=== PATIENT | female | born 1975 | race Caucasian/White ===

== ENCOUNTER 2016-08-01 09:35 | Inpatient (IN) ==
[~2016-08-01 09:35] MED LIST: *HR* Etomidate 20 MG/10 ML AMPUL IVP ONE; *HR* Midazolam HCl 5 MG/5 ML VIAL IVP ONE
[2016-08-01] MEDS ORDERED: 0.9 % Sodium Chloride 1,000 ML ONE (10:44)
[2016-08-01] MEDS: Norepinephrine 4 MG in D5% in Water 250 ML IVC SCH ×3 (12:13→22:11)
--- NOTE | 2016-08-01 13:21 | Pulmonology History & Physical ---
Date of Encounter: 08/01/16 Time of Encounter: 13:00 History of Present Illness Chief complaint: ARF, Sepsis HPI: Ms. Butler is a 40 year old female with history significant for diabetes, hypertension, renal disease, obesity, and sleep apnea presents from [place] on a nonrebreather mask. She originally presented with nausea, vomiting and generalized fatigue. At [place], pt was found to have WBC: 39.9 with 30% bands, K:6.5, and creatinine:5.94. She was given IV fluids and a figueroa was placed prior to arrival. Past Med Surg Social Fam HX - Past Medical History Medical history: arthritis, diabetes, hypertension, renal disease, other Psychiatric history: anxiety, depression - Past Surgical History Surgical History: , herniorrhaphy, other - Social History Smoking Status: Current every day smoker Alcohol use: none Drug use: none Medications and Allergies Aclidinium [place] [Tudorza Pressair] 1 puff IH DAILY 08/01/16 [History] Albuterol Neb [Proventil Neb] 2.5 mg IH ONCE 08/01/16 [History] Albuterol Sulfate [Ventolin Hfa] 2 puff IH Q4H PRN 08/01/16 [History] Alprazolam [Alprazolam] 2 mg PO BID PRN 08/01/16 [History] Aspirin 81 mg PO DAILY 08/01/16 [History] Ergocalciferol (VITAMIN D2) [Vitamin D2] 50,000 unit PO QWEEK 08/01/16 [History] Insulin Degludec [Tresiba Flextouch U-100] 100 unit SQ DAILY 08/01/16 [History] Liraglutide [Victoza 3-Jimy] 1.2 mg SQ DAILY 08/01/16 [History] Loratadine [Claritin] 10 mg PO DAILY 08/01/16 [History] Metoprolol [Lopressor] 25 mg PO DAILY 08/01/16 [History] Morphine Sulfate [Kathleen] 15 mg PO BID 08/01/16 [History] Omeprazole [PriLOSEC] 20 mg PO DAILY 08/01/16 [History] Ondansetron HCl 4 mg PO Q6H PRN 08/01/16 [History] Oxycodone HCl 5 mg PO BID PRN 08/01/16 [History] Potassium Chloride [K-Tab ER] 20 meq PO DAILY 08/01/16 [History] Pravastatin Sodium [Pravachol] 40 mg PO DAILY 08/01/16 [History] Spironolactone [Aldactone] 100 mg PO DAILY 08/01/16 [History] Torsemide [Torsemide] 100 mg PO DAILY 08/01/16 [History] Allergies No Known Allergies Allergy (Verified 08/01/16 07:54) All Systems: A 10-system review of systems was performed and is negative for pertinent findings except as documented above in the HPI. Physical Examination Vital Signs: Vital Signs, Last 4 Hours Temp Pulse Resp BP Pulse Ox 08/01/16 12:00 83 20 82/34 82 L 08/01/16 11:25 85 08/01/16 11:19 20 101/69 82 L 08/01/16 10:56 97.9 F 87 16 101/69 65 L
[2016-08-01] MEDS: Cefepime HCl 2,000 MG in D5% in Water (Mini-Bag+) 100 ML IVPB SCH (14:00)
[2016-08-01] MEDS ORDERED: Vancomycin 2,000 MG in D5% in Water 250 ML IVPB SCH (14:00)
[2016-08-01] MEDS ORDERED: Vancomycin 2,000 MG in D5% in Water 500 ML IVPB ONE (14:00)
[2016-08-01] MEDS ORDERED: *HR* Heparin 5,000 UNIT/ML VIAL ONE ×2 (14:11→22:43)
[2016-08-01] MEDS ORDERED: 0.9 % Sodium Chloride 2,000 ML ONE (14:30)
[2016-08-01 14:35] LABS: ABG Base Excess -12.2 mEq/L (-2.0 to 3.0); ABG HCO3 19.2 mEQ/L (21-27); ABG Oxygen Saturation 91 % (95-98); ABG PCO2 71 mmHg (35-45); ABG PH 7.04 pH Units (7.32-7.45); ABG PO2 86 mmHg (85-104); ABG TCO2 21.4 mEq/L (20-26); Blood Gas FiO2 100 %
[2016-08-01] MEDS ORDERED: Acetaminophen 325 MG TABLET PO PRN (14:39)
[2016-08-01] MEDS ORDERED: Naloxone 0.4 MG/ML INJ IVP PRN (14:39)
[2016-08-01] MEDS ORDERED: *HR* Dextrose 50 % in Water (Syg) 50 ML SYRINGE IVP PRN (14:47)
[2016-08-01] MEDS ORDERED: D5% in Water 1,000 ML IV PRN (14:47)
[2016-08-01] MEDS ORDERED: Dextrose Gel 15 GM PO PRN ×2 (14:47)
[2016-08-01] MEDS ORDERED: Insulin LISPRO 300 UNITS/3 ML VIAL SQ SCH (15:00)
--- NOTE | 2016-08-01 15:06 | Pulmonology History & Physical ---
Date of Encounter: 08/01/16 Time of Encounter: 14:52 Assessment and Plan (1) Acute respiratory failure with hypoxia Current visit: Yes Status: Acute Acute respiratory failure with hypoxia and this particular individual is related to COPD, Obesity hypoventilation and cor pulmonale and more than likely superimposed septic shock. The patient requires full ventilatory support I FiO2 and PEEP levels given the magnitude of hypoxia. Follow-up arterial blood gases pending in reference to adjustment of ventilatory support. The patient will receive dilator therapy may require steroids maximize pulmonary function. Code(s): J96.01 - Acute respiratory failure with hypoxia SNOMED Code(s): 34081283, 650641911 (2) Septic shock Current visit: Yes Status: Acute Patient suffers from presumptive septic shock with multisystem organ failure. The precise focus site for sepsis in this particular individual is uncertain at this time. The post interventional chest radiograph does not reveal a significant focal infiltrate however given the limitations of the quality of the film, and the interpretation of films by myself, the patient may have a left lower lobe retrocardiac density. Nonetheless, cultures obtained and the patient will be placed on broad-spectrum antimicrobial agents pending results of culture and further evaluation. Code(s): A41.9 - Sepsis, unspecified organism; R65.21 - Severe sepsis with septic shock SNOMED Code(s): 35134850 (3) Acute renal failure Current visit: No Status: Acute Acute kidney injury in this individual is due to hemodynamically mediated ATN secondary to septic shock. Is uncertain if the patient has chronic kidney disease but certainly has risk factors for the same (diabetes, hypertension). Given the magnitude of renal failure and accompanying metabolic dysfunction ( metabolic acidosis, hyperkalemia) and anuria to date, Dr. Bernal's been consulted to initiate continuous renal replacement therapy. Qualifiers: Acute renal failure type: with acute tubular necrosis Qualified Code(s): N17.0 - Acute kidney failure with tubular necrosis (4) Transaminitis Current visit: Yes Status: Acute Initially elevated amylase levels from review of blood work as well as hyperbilirubinemia are likely due to shock liver. The patient may also have pre -existing liver dysfunction and in particular fatty liver. Liver function studies will be monitored supportive care provided. Code(s): R74.0 - Nonspecific elevation of levels of transaminase and lactic acid dehydrogenase [LDH] SNOMED Code(s): 063180986 History of Present Illness Chief complaint: Acute respiratory failure HPI: Ms. Butler is a 40 year old female transferred from outlying facility where she presented with complaints of fatigue and general sense of poor well-being, breathlessness. According to the [facility] ER physician with whom I spoke earlier today, the patient appeared quite ill suffered from multiple metabolic derangements including presumptive acute kidney injury, metabolic acidosis, transaminitis and profound hypoxia. Patient was also substantially hyperglycemic. After initial emergency room evaluation, the patient developed progressive hypotension and hypoxia. She received at least 2 L of intravenous saline fluid bolus, broad-spectrum antimicrobial agent for presumptive sepsis and was placed on a nonrebreather face mask. The patient was subsequently transferred to [place] critical care unit. At the time of her transfer, she was very ill appearing with peripheral cyanosis, cool extremities confused, mildly delirious and profoundly hypoxic (80% saturation via pulse oximetry, FiO2 100% via nonrebreather facemask). Given her overall clinical appearance, she was subsequently intubated using a glide scope, procedure performed without difficulty by Dr. Diaz under my direct supervision (7.5 orql ETT), placed on high level ventilatory support, received additional fluids in conjunction with initiation of pressor agents (Levophed and Vasopressin), initiated on Cefepime and Vancomycin following blood cultures, urine and sputum culture and underwent central line placement as well as arterial catheter placement for hemodynamic monitoring purposes (agAIN performed by Dr Diaz under my direct supervison). Given the magnitude of the patient's renal failure, metabolic acidosis and hyperkalemia and in light of anuria, Dr. Bernal was consulted for provision of continuous renal replacement therapy and an additional left IJ central venous hemodialysis catheter was placed to Dr. Diaz under my supervision without difficulty. Apparently, per the family, the patient has been ill quite some time and is refused seeking attention of medical care. She is an active smoker offers from COPD as well as morbid obesity hypoventilation syndrome sleep apnea, diabetes and probably chronic kidney disease. Aside from tobacco abuse no other social history is unknown. Poorly, the patient's past medical histories include COPD, hypertension, diabetes mellitus, sleep apnea, arthritis and anxiety and depression Past Med Surg Social Fam HX - Past Medical History Medical history: arthritis, diabetes, hypertension, renal disease, other Psychiatric history: anxiety, depression - Past Surgical History Surgical History: , herniorrhaphy - Social History Smoking Status: Current every day smoker Alcohol use: none Drug use: none Medications and Allergies Aclidinium [place] [Tudorza Pressair] 1 puff IH DAILY 08/01/16 [History] Albuterol Neb [Proventil Neb] 2.5 mg IH ONCE 08/01/16 [History] Albuterol Sulfate [Ventolin Hfa] 2 puff IH Q4H PRN 08/01/16 [History] Alprazolam [Alprazolam] 2 mg PO BID PRN 08/01/16 [History] Aspirin 81 mg PO DAILY 08/01/16 [History] Ergocalciferol (VITAMIN D2) [Vitamin D2] 50,000 unit PO QWEEK 08/01/16 [History] Insulin Degludec [Tresiba Flextouch U-100] 100 unit SQ DAILY 08/01/16 [History] Liraglutide [Victoza 3-Jimy] 1.2 mg SQ DAILY 08/01/16 [History] Loratadine [Claritin] 10 mg PO DAILY 08/01/16 [History] Metoprolol [Lopressor] 25 mg PO DAILY 08/01/16 [History] Morphine Sulfate [Kathleen] 15 mg PO BID 08/01/16 [History] Omeprazole [PriLOSEC] 20 mg PO DAILY 08/01/16 [History] Ondansetron HCl 4 mg PO Q6H PRN 08/01/16 [History] Oxycodone HCl 5 mg PO BID PRN 08/01/16 [History] Potassium Chloride [K-Tab ER] 20 meq PO DAILY 08/01/16 [History] Pravastatin Sodium [Pravachol] 40 mg PO DAILY 08/01/16 [History] Spironolactone [Aldactone] 100 mg PO DAILY 08/01/16 [History] Torsemide [Torsemide] 100 mg PO DAILY 08/01/16 [History] Allergies No Known Allergies Allergy (Verified 08/01/16 07:54) ROS unobtainable: due to endotracheal tube, due to mental status All Systems: A 10-system review of systems was performed and is negative for pertinent findings except as documented above in the HPI. Physical Examination Vital Signs: Vital Signs, Last 4 Hours Temp Pulse Resp BP Pulse Ox 08/01/16 14:00 70 20 120/69 73 L 08/01/16 13:00 73 20 87/46 73 L 08/01/16 12:00 83 20 82/34 82 L 08/01/16 11:25 85 08/01/16 11:19 20 101/69 82 L 08/01/16 10:56 97.9 F 87 16 101/69 65 L General appearance: other (Super morbidly obese female obviously in moderate degree of distress cyanotic confused.) ENT: other (Unable to fully evaluate oral pharynx due to nonrebreather facemask) Mallampati (class): 2 Auscultation: bilateral: diminished breath sounds, wheezes Cardiovascular: regular rate and rhythm, other (Gallop) Gastrointestinal: normoactive bowel sounds, non-tender, other (Tremendous pannus ) Extremities: cool (Cool cyanotic extremities noted at all stations, severely diminished pulsations upper lower extremities. Livedo reticularis noted of the legs.), cyanosis unable to assess due to mental status, other (No obvious focal motor deficit nor cranial nerve deficits limited exam) Results - Laboratory Findings ABG ABG pH 7.04 pH Units (7.32-7.45) L* 08/01/16 14:01 ABG pCO2 71 mmHg (35-45) H* 08/01/16 14:01 ABG pO2 86 mmHg (85-104) 08/01/16 14:01 ABG O2 Saturation 91 % (95-98) L 08/01/16 14:01 Abnormal lab findings: Abnormal lab results ABG pH 7.04 pH Units (7.32-7.45) L* 08/01/16 14:01 ABG pCO2 71 mmHg (35-45) H* 08/01/16 14:01 ABG HCO3 19.2 mEQ/L (21-27) L 08/01/16 14:01 ABG O2 Saturation 91 % (95-98) L 08/01/16 14:01 ABG Base Excess -12.2 mEq/L (-2.0 to 3.0) L 08/01/16 14:01
--- NOTE | 2016-08-01 15:27 | Event Note ---
Date of Encounter: 08/01/16 Time of Encounter: 15:25 I reviewed the medical situation of this gravely ill patient with the family. I told them in no uncertain terms that the odds are more likely than not that she will not survive spite of aggressive appropriate medical measures to support multisystem organ failure presumably secondary to septic shock. Family members acknowledge this situation but wished to continue aggressive care at least through the weekend perhaps evaluating the situation next week. Therefore , the patient will remain full code at this time. Enoch
[2016-08-01] MEDS: Chlorhexidine Rinse 15 ML MOUTHWASH MM SCH ×2 (15:50→20:14)
[2016-08-01] MEDS: *HR* Heparin 5,000 UNIT/ML VIAL SQ SCH ×2 (15:51→23:51)
[2016-08-01] MEDS: Pantoprazole 40 MG VIAL IVPB SCH (15:51)
[2016-08-01] MEDS ORDERED: *HR* Heparin 5,000 UNIT/ML VIAL IV PRN ×2 (15:54→16:06)
[2016-08-01 15:56] LABS: Monocytes % 1.4 %
[2016-08-01 15:57] LABS: Basophils % 0.2 %; Hematocrit 30.6 % (35.3-44.9); Hemoglobin 9.1 g/dL (11.5-15.4); Lymphocytes # 0.5 K/mcL (0.6-4.6); Mean Corpuscular HGB Conc 29.7 g/dL (31.6-35.5); Mean Corpuscular Hemoglobin 28.1 pg (28.0-33.3); Mean Corpuscular Volume 94.4 fL (83.0-100.0); Mean Platelet Volume 10.9 fL (9.4-12.4); Monocytes # 0.4 K/mcL (0.0-1.3); Neutrophils # 24.9 K/mcL (1.6-8.9); Platelet Count 181 K/mcL (140-400); Red Blood Count 3.24 M/mcL (3.82-4.97); Red Cell Distribution Width 17.8 % (11.5-14.5); Segmented Neutrophils % 94.4 %
[2016-08-01 16:06] LABS: Basophils # 0.1 K/mcL (0.0-0.2)
[2016-08-01] MEDS ORDERED: *HR* Alteplase (Cathflo) 2 MG VIAL IVP PRN (16:06)
[2016-08-01] MEDS ORDERED: 0.9 % Sodium Chloride 1,000 ML PRIME ONE ×2 (16:06)
[2016-08-01] MEDS ORDERED: 0.9 % Sodium Chloride 1,000 ML PRIME SCH (16:06)
[2016-08-01 16:09] LABS: Calcium 6.8 mg/dL (8.6-10.8); Magnesium 1.9 mg/dL (1.6-2.6); Phosphorous 11.4 mg/dL (2.3-4.7)
[2016-08-01 16:13] LABS: Potassium 7.6 mEq/L (3.5-4.5)
[2016-08-01 16:14] LABS: Ionized Calcium 0.76 mmol/L (1.15-1.35)
[2016-08-01] MEDS ORDERED: Calcium Gluconate 2,000 MG in D5% in Water 100 ML IVPB ONE (16:26)
[2016-08-01 16:53] LABS: Platelet Estimate Normal (Normal)
[2016-08-01] MEDS ORDERED: 0.9 % Sodium Chloride 250 ML IV PRN (17:18)
[2016-08-01] MEDS ORDERED: 0.9 % Sodium Chloride 500 ML ONE (17:48)
[2016-08-01] MEDS ORDERED: Vancomycin 1,000 MG in D5% in Water 250 ML IVPB ONE (18:00)
[2016-08-01 19:24] LABS: ABG Base Excess -9.2 mEq/L (-2.0 to 3.0); ABG HCO3 21.5 mEQ/L (21-27); ABG Oxygen Saturation 79 % (95-98); ABG PCO2 71 mmHg (35-45); ABG PH 7.09 pH Units (7.32-7.45); ABG PO2 60 mmHg (85-104); ABG TCO2 23.7 mEq/L (20-26); Blood Gas FiO2 70 %
[2016-08-01 19:31] LABS: Hepatitis B Surface Antigen Nonreactive (Nonreactive)
[2016-08-01] MEDS: Vasopressin 40 UNIT in D5% in Water 100 ML IVC SCH (19:38)
[2016-08-01] MEDS: Lacri-Lube 3.5 GM TUBE BOTH EYES SCH (20:14)
[2016-08-01] MEDS: Insulin LISPRO 300 UNITS/3 ML VIAL SQ SCH ×2 (20:21→23:52)
[2016-08-02] MEDS: Cefepime HCl 2,000 MG in D5% in Water (Mini-Bag+) 100 ML IVPB SCH ×2 (02:18→17:26)
[2016-08-02 02:53] LABS: Basophils # 0.1 K/mcL (0.0-0.2); Basophils % 0.2 %; Eosinophils % 0.1 %; Hematocrit 48.4 % (35.3-44.9); Hemoglobin 14.9 g/dL (11.5-15.4); Immature Granulocytes % 1.1 % (0-4); Lymphocytes # 1.5 K/mcL (0.6-4.6); Mean Corpuscular HGB Conc 30.8 g/dL (31.6-35.5); Mean Corpuscular Hemoglobin 27.4 pg (28.0-33.3); Mean Platelet Volume 10.1 fL (9.4-12.4); Monocytes # 0.6 K/mcL (0.0-1.3); Monocytes % 1.6 %; Neutrophils # 35.3 K/mcL (1.6-8.9); Nucleated Red Blood Cells 3.2 /100 WBC (0); Platelet Count 240 K/mcL (140-400); Red Blood Count 5.44 M/mcL (3.82-4.97); Red Cell Distribution Width 19.1 % (11.5-14.5)
[2016-08-02 03:00] LABS: Calcium 6.7 mg/dL (8.6-10.8); Potassium 6.3 mEq/L (3.5-4.5)
[2016-08-02 03:15] LABS: Anisocytosis 1+ (Not Present); Platelet Estimate Normal (Normal)
[2016-08-02] MEDS: Insulin LISPRO 300 UNITS/3 ML VIAL SQ SCH ×7 (03:22→23:21)
[2016-08-02] MEDS ORDERED: Calcium Gluconate 1,000 MG in D5% in Water 100 ML IVPB ONE (03:35)
[2016-08-02] MEDS ORDERED: Insulin Regular, Human 100 UNIT/ML IV ONE (04:22)
[2016-08-02] MEDS ORDERED: *HR* Dextrose 50 % in Water (Syg) 50 ML SYRINGE IVP ONE (04:22)
[2016-08-02 04:36] LABS: ABG Base Excess -3.5 mEq/L (-2.0 to 3.0); ABG HCO3 25.3 mEQ/L (21-27); ABG Oxygen Saturation 95 % (95-98); ABG PCO2 59 mmHg (35-45); ABG PH 7.24 pH Units (7.32-7.45); ABG PO2 89 mmHg (85-104); ABG TCO2 27.1 mEq/L (20-26)
[2016-08-02 04:37] LABS: Blood Gas FiO2 75 %
[2016-08-02] MEDS: *HR* Heparin 5,000 UNIT/ML VIAL SQ SCH (06:02)
[2016-08-02] MEDS ORDERED: *HR* HYDROmorphone (PF) 1 MG/ML SYRINGE IVP ONE (06:10)
[2016-08-02] MEDS: FentaNYL (PF) 1,000 MCG in 0.9 % Sodium Chloride 80 ML IVC SCH (06:44)
--- NOTE | 2016-08-02 07:16 | Pulmonology Progress Note ---
<Denisse Leavitt - Last Filed: 08/02/16 07:07> Date of Encounter: 08/02/16 Time of Encounter: 07:07 Subjective Principal diagnosis: Acute respiratory failure with hypoxia and septic shock Interval history: Patient had a sedation vacation at 02:39 for which she was awake and following commands however she became resistant to the vent bucking it and was re sedated. Objective PUL Vital signs: Last Vital Signs Temp 99.4 F 08/02/16 04:00 Pulse 96 08/02/16 06:00 Resp 26 08/02/16 06:00 BP 110/68 08/02/16 06:00 Pulse Ox 94 L 08/02/16 06:00 General appearance: other (Morbidly obese) Eyes: nonicteric ENT: oropharynx moist Neck: supple, no lymphadenopathy, other (Increased neck circumference) Effort: normal Auscultation: bilateral: diminished breath sounds, wheezes Cardiovascular: regular rate and rhythm Gastrointestinal: normoactive bowel sounds, non-tender, other (Extremely large pannus) Integumentary: other (Cool cyanotic extremities, diminished pulses upper and lower bilaterally. Mottled reticulated vascularity bilateral lower extremities. ) Extremities: cyanosis pupils equal and round Ventilator Settings Ventilator Settings: Ventilator Settings, Last 8 Hours Ventilator Mode VC+ Ventilator Mode VC+ Ventilator Mode VC+ Ventilator Mode VC+ Ventilator Mode VC+ Ventilator Mode VC+ Ventilator Mode VC+ Ventilator Mode VC+ Ventilator Mode VC+ Ventilator Mode VC+ Ventilator Mode VC+ Ventilator Mode VC+ Ventilator Tidal Volume 350 Setting Ventilator Tidal Volume 350 Setting Ventilator Tidal Volume 350 Setting Ventilator Tidal Volume 350 Setting Ventilator Tidal Volume 350 Setting Ventilator Tidal Volume 350 Setting Ventilator Tidal Volume 350 Setting Ventilator Tidal Volume 350 Setting Ventilator Tidal Volume 350 Setting Ventilator Tidal Volume 350 Setting Ventilator Tidal Volume 350 Setting Ventilator Tidal Volume 350 Setting Ventilator Respiratory Rate 26 Setting Ventilator Respiratory Rate 26 Setting Ventilator Respiratory Rate 26 Setting Ventilator Respiratory Rate 26 Setting Ventilator Respiratory Rate 26 Setting Ventilator Respiratory Rate 26 Setting Ventilator Respiratory Rate 26 Setting Ventilator Respiratory Rate 26 Setting Ventilator Respiratory Rate 26 Setting Ventilator Respiratory Rate 26 Setting Ventilator Respiratory Rate 26 Setting Ventilator Respiratory Rate 26 Setting Actual Respiratory Rate 26 Actual Respiratory Rate 26 Actual Respiratory Rate 26 Actual Respiratory Rate 26 Actual Respiratory Rate 26 Actual Respiratory Rate 26 Actual Respiratory Rate 26 Actual Respiratory Rate 26 Actual Respiratory Rate 26 Actual Respiratory Rate 26 Actual Respiratory Rate 26 Positive End Expiratory 14 Pressure Positive End Expiratory 14 Pressure Positive End Expiratory 14 Pressure Positive End Expiratory 14 Pressure Positive End Expiratory 14 Pressure Positive End Expiratory 14 Pressure Positive End Expiratory 14 Pressure Positive End Expiratory 14 Pressure Positive End Expiratory 14 Pressure Positive End Expiratory 14 Pressure Positive End Expiratory 14 Pressure Positive End Expiratory 14 Pressure Peak Inspiratory Airway 29 Pressure Peak Inspiratory Airway 29 Pressure Peak Inspiratory Airway 30 Pressure Peak Inspiratory Airway 29 Pressure Peak Inspiratory Airway 31 Pressure Peak Inspiratory Airway 30 Pressure Peak Inspiratory Airway 30 Pressure Peak Inspiratory Airway 30 Pressure Peak Inspiratory Airway 30 Pressure Peak Inspiratory Airway 30 Pressure Peak Inspiratory Airway 31 Pressure Results - Laboratory Findings CBC and BMP: 08/02/16 02:30 08/02/16 02:30 ABG ABG pH 7.24 pH Units (7.32-7.45) L 08/02/16 04:25 ABG pCO2 59 mmHg (35-45) H 08/02/16 04:25 ABG pO2 89 mmHg (85-104) 08/02/16 04:25 ABG O2 Saturation 95 % (95-98) 08/02/16 04:25 Abnormal lab findings: Abnormal lab results WBC 37.9 K/mcL (4.3-11.1) H* 08/02/16 02:30 RBC 5.44 M/mcL (3.82-4.97) H 08/02/16 02:30 Hct 48.4 % (35.3-44.9) H 08/02/16 02:30 MCH 27.4 pg (28.0-33.3) L 08/02/16 02:30 MCHC 30.8 g/dL (31.6-35.5) L 08/02/16 02:30 RDW 19.1 % (11.5-14.5) H 08/02/16 02:30 Neutrophils # 35.3 K/mcL (1.6-8.9) H 08/02/16 02:30 Nucleated RBCs/100 WBC 3.2 /100 WBC (0) H 08/02/16 02:30 Anisocytosis 1+ (Not Present) A 08/02/16 02:30 ABG pH 7.24 pH Units (7.32-7.45) L 08/02/16 04:25 ABG pCO2 59 mmHg (35-45) H 08/02/16 04:25 ABG Total CO2 27.1 mEq/L (20-26) H 08/02/16 04:25 ABG Base Excess -3.5 mEq/L (-2.0 to 3.0) L 08/02/16 04:25 Sodium 128 mEq/L (136-145) L 08/02/16 02:30 Potassium 6.3 mEq/L (3.5-4.5) H 08/02/16 02:30 Chloride 91 mEq/L (98-109) L 08/02/16 02:30 Carbon Dioxide 18 mEq/L (19-29) L 08/02/16 02:30 BUN 76 mg/dL (7-20) H 08/02/16 02:30 Creatinine 5.27 mg/dL (0.57-1.11) H 08/02/16 02:30 Est GFR ( Amer) 11 (> 60) L 08/02/16 02:30 Est GFR (Non-Af Amer) 9 (> 60) L 08/02/16 02:30 Glucose 167 mg/dL (70-99) H 08/02/16 02:30 POC Glucose 204 (58-89) H 08/01/16 23:06 Calcium 6.7 mg/dL (8.6-10.8) L 08/02/16 02:30 Ionized Calcium 0.76 mmol/L (1.15-1.35) L 08/01/16 15:46 Phosphorus 11.4 mg/dL (2.3-4.7) H 08/01/16 15:46 Vancomycin Trough 33.1 mcg/mL (10-20) H* 08/02/16 02:30 - Microbiology Findings Microbiology Findings: Microbiology, Last 48 Hours 08/01/16 13:53 Sputum Culture - Preliminary Sputum - Clinical Findings Intake & Output: Intake & Output 08/01/16 08/01/16 08/02/16 15:59 23:59 07:59 Intake Total 354 / 354 2654 / 2654 387 / 387 Output Total 815 / 815 95 / 95 Balance 354 / 354 1839 / 1839 292 / 292 Weight 159.2 kg 160 kg Consult Discharge Plan - Plan Referrals: Brittany Schofield MD [Primary Care Provider] - <Sheng Kendall - Last Filed: 08/02/16 10:06> Date of Encounter: 08/02/16 Assessment and Plan (1) Acute respiratory failure with hypoxia Current Visit: Yes Status: Acute Code(s): J96.01 - Acute respiratory failure with hypoxia SNOMED Code(s): 69277118, 658673066 (2) Septic shock Current Visit: Yes Status: Acute Code(s): A41.9 - Sepsis, unspecified organism; R65.21 - Severe sepsis with septic shock SNOMED Code(s): 42617082 (3) Acute renal failure Current Visit: No Status: Acute Qualifiers: Acute renal failure type: with acute tubular necrosis Qualified Code(s): N17.0 - Acute kidney failure with tubular necrosis (4) Transaminitis Current Visit: Yes Status: Acute Code(s): R74.0 - Nonspecific elevation of levels of transaminase and lactic acid dehydrogenase [LDH] SNOMED Code(s): 733269091 Objective PUL Vital signs: Last Vital Signs Temp 99.0 F 08/02/16 08:11 Pulse 96 08/02/16 09:07 Resp 26 08/02/16 09:07 BP 118/64 08/02/16 09:07 Pulse Ox 89 L 08/02/16 09:07 Ventilator Settings Ventilator Settings: Ventilator Settings, Last 8 Hours Ventilator Mode VC+ Ventilator Mode VC+ Ventilator Mode VC+ Ventilator Mode VC+ Ventilator Mode VC+ Ventilator Mode VC+ Ventilator Mode VC+ Ventilator Mode VC+ Ventilator Mode VC+ Ventilator Tidal Volume 350 Setting Ventilator Tidal Volume 350 Setting Ventilator Tidal Volume 350 Setting Ventilator Tidal Volume 350 Setting Ventilator Tidal Volume 350 Setting Ventilator Tidal Volume 350 Setting Ventilator Tidal Volume 350 Setting Ventilator Tidal Volume 350 Setting Ventilator Tidal Volume 350 Setting Ventilator Respiratory Rate 26 Setting Ventilator Respiratory Rate 26 Setting Ventilator Respiratory Rate 26 Setting Ventilator Respiratory Rate 26 Setting Ventilator Respiratory Rate 26 Setting Ventilator Respiratory Rate 26 Setting Ventilator Respiratory Rate 26 Setting Ventilator Respiratory Rate 26 Setting Ventilator Respiratory Rate 26 Setting Actual Respiratory Rate 26 Actual Respiratory Rate 26 Actual Respiratory Rate 26 Actual Respiratory Rate 26 Actual Respiratory Rate 26 Actual Respiratory Rate 26 Actual Respiratory Rate 26 Actual Respiratory Rate 26 Positive End Expiratory 14 Pressure Positive End Expiratory 14 Pressure Positive End Expiratory 14 Pressure Positive End Expiratory 14 Pressure Positive End Expiratory 14 Pressure Positive End Expiratory 14 Pressure Positive End Expiratory 14 Pressure Positive End Expiratory 14 Pressure Positive End Expiratory 14 Pressure Peak Inspiratory Airway 30 Pressure Peak Inspiratory Airway 30 Pressure Peak Inspiratory Airway 29 Pressure Peak Inspiratory Airway 29 Pressure Peak Inspiratory Airway 30 Pressure Peak Inspiratory Airway 29 Pressure Peak Inspiratory Airway 31 Pressure Peak Inspiratory Airway 30 Pressure Results - Laboratory Findings CBC and BMP: 08/02/16 02:30 08/02/16 02:30 ABG ABG pH 7.24 pH Units (7.32-7.45) L 08/02/16 04:25 ABG pCO2 59 mmHg (35-45) H 08/02/16 04:25 ABG pO2 89 mmHg (85-104) 08/02/16 04:25 ABG O2 Saturation 95 % (95-98) 08/02/16 04:25 Abnormal lab findings: Abnormal lab results WBC 37.9 K/mcL (4.3-11.1) H* 08/02/16 02:30 RBC 5.44 M/mcL (3.82-4.97) H 08/02/16 02:30 Hct 48.4 % (35.3-44.9) H 08/02/16 02:30 MCH 27.4 pg (28.0-33.3) L 08/02/16 02:30 MCHC 30.8 g/dL (31.6-35.5) L 08/02/16 02:30 RDW 19.1 % (11.5-14.5) H 08/02/16 02:30 Neutrophils # 35.3 K/mcL (1.6-8.9) H 08/02/16 02:30 Nucleated RBCs/100 WBC 3.2 /100 WBC (0) H 08/02/16 02:30 Anisocytosis 1+ (Not Present) A 08/02/16 02:30 ABG pH 7.24 pH Units (7.32-7.45) L 08/02/16 04:25 ABG pCO2 59 mmHg (35-45) H 08/02/16 04:25 ABG Total CO2 27.1 mEq/L (20-26) H 08/02/16 04:25 ABG Base Excess -3.5 mEq/L (-2.0 to 3.0) L 08/02/16 04:25 Sodium 128 mEq/L (136-145) L 08/02/16 02:30 Potassium 6.3 mEq/L (3.5-4.5) H 08/02/16 02:30 Chloride 91 mEq/L (98-109) L 08/02/16 02:30 Carbon Dioxide 18 mEq/L (19-29) L 08/02/16 02:30 BUN 76 mg/dL (7-20) H 08/02/16 02:30 Creatinine 5.27 mg/dL (0.57-1.11) H 08/02/16 02:30 Est GFR ( Amer) 11 (> 60) L 08/02/16 02:30 Est GFR (Non-Af Amer) 9 (> 60) L 08/02/16 02:30 Glucose 167 mg/dL (70-99) H 08/02/16 02:30 POC Glucose 204 (58-89) H 08/01/16 23:06 Calcium 6.7 mg/dL (8.6-10.8) L 08/02/16 02:30 Ionized Calcium 0.76 mmol/L (1.15-1.35) L 08/01/16 15:46 Phosphorus 11.4 mg/dL (2.3-4.7) H 08/01/16 15:46 Vancomycin Trough 33.1 mcg/mL (10-20) H* 08/02/16 02:30 - Microbiology Findings Microbiology Findings: Microbiology, Last 48 Hours 08/01/16 13:53 Sputum Culture - Preliminary Sputum - Clinical Findings Intake & Output: Intake & Output 08/01/16 08/02/16 08/02/16 23:59 07:59 15:59 Intake Total 2654 / 2654 387 / 387 110 / 110 Output Total 815 / 815 95 / 95 100 / 100 Balance 1839 / 1839 292 / 292 Weight 160 kg
--- NOTE | 2016-08-02 07:42 | Nephrology Consult Note ---
Date of Encounter: 08/02/16 Time of Encounter: 07:40 History of Present Illness - History of Present Illness This is a 40-year-old female who presented to an outside emergency room with complaints of fatigue and not feeling well. Patient was noted to be hyperglycemic hypotensive and hypoxic. She subsequently has been intubated and transferred to a DNR. Patient presents with a clinical picture of septic shock and multisystem organ failure including acute kidney injury. Patient is currently intubated and sedated. History is obtained from the medical record. Patient is oliguric. Patient had a temporary dialysis catheter placed yesterday. She was hyperkalemic. Intermittent hemodialysis was done to improve her hyperkalemia. Following that she was to be started on Tonya. There were vascular access complications with the Tonya was never started. She remains in acute kidney injury and is oliguric and hyperkalemic. Regarding to try and resume the Tonya this morning. Currently she is off pressors. Patient has acute kidney injury in the setting of septic shock and multisystem organ failure. This is complicated by hyperkalemia and metabolic acidosis. We are going to try and resume the Tonya today. If we are unsuccessful she will require intermittent hemodialysis because of the hyperkalemia. She may require replacement of the temporary dialysis catheter. Once the Tonya as initiated we will check a renal panel in about 6 hours. Past Med Surg Social Fam HX - Past Medical History Medical history: arthritis, diabetes, hypertension, renal disease, other Psychiatric history: anxiety, depression - Past Surgical History Surgical History: , herniorrhaphy - Social History Smoking Status: Current every day smoker Alcohol use: none Drug use: none Medications and Allergies Aclidinium Stanford [Tudorza Pressair] 1 puff IH DAILY 08/01/16 [History] Albuterol Neb [Proventil Neb] 2.5 mg IH ONCE 08/01/16 [History] Albuterol Sulfate [Ventolin Hfa] 2 puff IH Q4H PRN 08/01/16 [History] Alprazolam [Alprazolam] 2 mg PO BID PRN 08/01/16 [History] Aspirin 81 mg PO DAILY 08/01/16 [History] Ergocalciferol (VITAMIN D2) [Vitamin D2] 50,000 unit PO QWEEK 08/01/16 [History] Insulin Degludec [Tresiba Flextouch U-100] 100 unit SQ DAILY 08/01/16 [History] Liraglutide [Victoza 3-Jimy] 1.2 mg SQ DAILY 08/01/16 [History] Loratadine [Claritin] 10 mg PO DAILY 08/01/16 [History] Metoprolol [Lopressor] 25 mg PO DAILY 08/01/16 [History] Morphine Sulfate [Kathleen] 15 mg PO BID 08/01/16 [History] Omeprazole [PriLOSEC] 20 mg PO DAILY 08/01/16 [History] Ondansetron HCl 4 mg PO Q6H PRN 08/01/16 [History] Oxycodone HCl 5 mg PO BID PRN 08/01/16 [History] Potassium Chloride [K-Tab ER] 20 meq PO DAILY 08/01/16 [History] Pravastatin Sodium [Pravachol] 40 mg PO DAILY 08/01/16 [History] Spironolactone [Aldactone] 100 mg PO DAILY 08/01/16 [History] Torsemide [Torsemide] 100 mg PO DAILY 08/01/16 [History] Allergies No Known Allergies Allergy (Verified 08/01/16 07:54) Review of Systems ROS unobtainable: due to endotracheal tube Exam - Vital Signs Vital signs: Initial Vital Signs Temp Pulse Resp BP Pulse Ox 97.9 F 87 16 101/69 65 L 08/01/16 10:56 08/01/16 10:56 08/01/16 10:56 08/01/16 10:56 08/01/16 10:56 Vital Signs - Last 8 Hours Temp Pulse Resp BP Pulse Ox 08/02/16 06:00 96 26 110/68 94 L 08/02/16 05:35 26 108/67 94 L 08/02/16 05:00 94 26 111/69 92 L 08/02/16 04:00 99.4 F 96 26 104/69 92 L 08/02/16 03:30 26 93/63 92 L 08/02/16 03:00 96 26 95/63 90 L 08/02/16 02:00 97 26 94/62 88 L 08/02/16 01:45 26 95/64 88 L 08/02/16 01:00 100.2 F H 96 27 111/70 92 L 08/01/16 23:57 96 26 101/67 88 L Intake and Output 01/27/17 01/27/17 01/28/17 15:59 23:59 07:59 Intake Total 354 / 354 2654 / 2654 387 / 387 Output Total 815 / 815 95 / 95 Balance 354 / 354 1839 / 1839 292 / 292 Intake: IV Fluids 354 / 354 2053 / 2053 387 / 387 0.9 % Sodium Chloride 1, 1000 / 1000 000 ML As .ROUTE .STK-MED ONE Rx#:[id number] Levophed 4 MG In Dextrose 254 / 254 254 / 254 87 / 87 5% 250 ML @ 5 MCG/MIN 19 .05 mls/hr IVC CONT JEROD Rx#:[id number] Diprivan 1,000 mg In 100 200 / 200 200 / 200 ml @ 5 MCG/KG/MIN 4.776 mls/hr IVC .[id number] [facility] Rx#:[id number] Calcium Gluconate 2,000 100 / 100 MG In Dextrose 5% 100 ML @ 220 mls/hr IVPB ONCE ONE Rx#:[id number] Maxipime 2,000 MG In 100 / 100 100 / 100 Dextrose 5% (Minibag+) 100 ML 100 ML @ 200 mls/ hr IVPB Q12H [facility] Rx#: [id number] Vancocin 2,000 MG In 500 / 500 Dextrose 5% 500 ML @ 250 mls/hr IVPB ONCE ONE Rx#: [id number] Oral 0 / 0 Intake, Rinseback and 600 / 600 Flushes Output: Total Dialysis Output 600 / 600 Catheter 45 / 45 15 / 15 Gastric Drainage 170 / 170 80 / 80 Other: Weight 159.2 kg 160 kg Blood Glucose* 234 204 176 Hemodialysis Net Fluid 0 Removed (mL) - General Appearance Exam: Patient is sedated on the ventilator. She is morbidly obese. She has a temporary dialysis catheter in the left internal jugular vein. There is a heart line in the right femoral artery. Lungs coarse breath sounds as well as diminished breath sounds. Heart regular rate and rhythm. Abdomen is morbidly obese. Bowel sounds are diminished. Lower extremities show some swelling. There are obvious ischemic changes to both feet. There is also evidence of redness and erythema and possible cellulitis of the lower extremities. Results - Lab Results 08/02/16 02:30 08/02/16 02:30 Most recent lab results ABG pH 7.24 pH Units (7.32-7.45) L 08/02/16 04:25 ABG pCO2 59 mmHg (35-45) H 08/02/16 04:25 ABG pO2 89 mmHg (85-104) 08/02/16 04:25 ABG HCO3 25.3 mEQ/L (21-27) 08/02/16 04:25 ABG O2 Saturation 95 % (95-98) 08/02/16 04:25 Calcium 6.7 mg/dL (8.6-10.8) L 08/02/16 02:30 Phosphorus 11.4 mg/dL (2.3-4.7) H 08/01/16 15:46 Magnesium 1.9 mg/dL (1.6-2.6) 08/01/16 15:46 Consult Discharge Plan - Plan Referrals: Brittany Schofield MD [Primary Care Provider] -
[2016-08-02] MEDS ORDERED: 0.9 % Sodium Chloride 500 ML ONE ×2 (07:59→08:45)
[2016-08-02] MEDS ORDERED: *HR* Heparin 5,000 UNIT/ML VIAL ONE ×2 (08:39→15:51)
[2016-08-02] MEDS ORDERED: Vancomycin 1 EACH in EMPTY BAG 1 EACH IVPB SCH (09:00)
[2016-08-02] MEDS ORDERED: *HR* Heparin 5,000 UNIT/ML VIAL IVP PRN ×2 (09:32)
[2016-08-02] MEDS ORDERED: *HR* Heparin 5,000 UNIT/ML VIAL IVP ONE (09:32)
[2016-08-02] MEDS: PrismaSATE BGK 2/0 5,000 ML CRRT SCH ×4 (09:33→21:47)
[2016-08-02] MEDS: PrismaSATE BGK 4/2.5 5,000 ML CRRT SCH ×2 (09:33→17:12)
[2016-08-02] MEDS: INSULIN HUMAN REGULAR IVC SCH ×3 (09:34→22:39)
[2016-08-02] MEDS: D5 IVC SCH ×3 (09:34→22:39)
[2016-08-02] MEDS: SODIUM BICARBONATE IVC SCH ×3 (09:34→22:39)
[2016-08-02] MEDS: WATER IVC SCH ×3 (09:34→22:39)
[2016-08-02] MEDS: Pantoprazole 40 MG VIAL IVPB SCH (09:53)
[2016-08-02] MEDS: Lacri-Lube 3.5 GM TUBE BOTH EYES SCH ×2 (09:54→19:51)
[2016-08-02] MEDS: Chlorhexidine Rinse 15 ML MOUTHWASH MM SCH ×2 (09:54→19:50)
[2016-08-02 10:05] LABS: Hematocrit 49.4 % (35.3-44.9); Hemoglobin 15.1 g/dL (11.5-15.4); Immature Platelets 3.6 % (1.1-6.1); Mean Corpuscular HGB Conc 30.6 g/dL (31.6-35.5); Mean Corpuscular Hemoglobin 26.8 pg (28.0-33.3); Mean Corpuscular Volume 87.7 fL (83.0-100.0); Mean Platelet Volume 10.1 fL (9.4-12.4); Red Blood Count 5.63 M/mcL (3.82-4.97); Red Cell Distribution Width 19.1 % (11.5-14.5)
--- NOTE | 2016-08-02 10:06 | Event Note ---
Date of Encounter: 08/02/16 Time of Encounter: 09:57 Patient examined, chart and all data reviewed as well as imaging studies. Management was reviewed with the multidisciplinary staff during ICU rounds. Her gT The patient remains critically ill on high level ventilatory support (Acute respiratory failure with hypoxia, hypercapnia). Given malfunction of the dialysis catheter, it was repositioned resutured and currently is is functioning adequately. Patient will receive anticoagulation therapy (Heparin infusion) given propensity for thrombosis of the artificial kidney. Patient continues to require pressor agent support during this renal replacement therapy obtain an adequate mean blood pressure. To date, cultures are negative (ATB=Cefepime, Vancomycin) Examination is notable for persistent lower extremity ischemia mottling and holding necrosis. Physical examination findings are secondary to underlying arterial disease compound effects of sepsis and pressor agent administration. Currently, the patient is not a candidate to undergo any additional interventions for arterial insufficiency other than supportive medical measures , anticoagulation therapy. This patient remains critically ill with multisystem organ failure (respiratory failure, renal failure, vaso-plegia and pressor dependent shock, transaminitis liver dysfunction )and has a very poor overall prognosis for recovery are reviewed in detail with the family yesterday during the she will evaluation and conference with the family. Troll nutritional support will be provided today low-dose, escalating to goal as tolerated. Management of this critically ill patient who suffers from the system organ failure and thus he has a very high mortality rate quire dust 35 minutes critical care time. Enoch
[2016-08-02 10:13] LABS: INR 2.1; Prothrombin Time 23.6 Seconds (9.4-12.1)
[2016-08-02 10:15] LABS: Activated Partial Thrombo Time 30.7 Seconds (26.0-36.0)
[2016-08-02] MEDS: Heparin 25,000 UNIT/500 ML D5W 25,000 UNIT/500 ML MLS IVC SCH ×2 (10:24→21:45)
--- NOTE | 2016-08-02 10:27 | Procedure Note ---
Date of procedure: 08/01/16 Pre-op diagnosis: acute respiratory failure, septic shock Post-op diagnosis: same Procedure: Using the glides scope and following sedation Versed and etomidate, 7-/ oral endotracheal tube was placed by Dr. Diaz under my direct supervision. No untoward events were noted, procedure well tolerated and tidal CO2 suggested appropriate placement as stated auscultation of the chest. Chest radiograph is pending.
--- NOTE | 2016-08-02 10:29 | Procedure Note ---
Date of procedure: 08/01/16 Pre-op diagnosis: Septic shock Post-op diagnosis: same Procedure: Right IJ central venous catheter was placed using sterile maximal barrier technique sterile ultrasound guidance for provision of episcopal administration in this patient with septic shock. The procedure was performed emergently by Dr. Diaz under my direct supervision. The device was flushed sutured into position no untoward events were noted a radiograph is pending.
--- NOTE | 2016-08-02 10:30 | Procedure Note ---
Date of procedure: 08/01/16 Pre-op diagnosis: septic shock Post-op diagnosis: same Procedure: A right femoral arterial line placed and the need for pressor agent administration and titration utilizing maximal sterile barrier technique ultrasound guidance. Device was placed under my direct supervision by Dr. Diaz. Transduction of the device revealed appropriate waveform and it was sutured into position. No untoward events were noted.
--- NOTE | 2016-08-02 10:32 | Procedure Note ---
Date of procedure: 08/01/16 Pre-op diagnosis: Septic shock, PAMELA Post-op diagnosis: same Procedure: A left IJ temporary hemodialysis catheter was placed using sterile Seldinger technique maximal sterile barrier technique and sterile ultrasound guidance. The device was placed by Dr. Diaz under my direct supervision. Ports were flushed the device was sutured in the position chest radiograph is pending. No untoward events were noted.
[2016-08-02] MEDS: Vasopressin 40 UNIT in D5% in Water 100 ML IVC SCH (14:26)
[2016-08-02] MEDS: Norepinephrine 4 MG in D5% in Water 250 ML IVC SCH (14:26)
[2016-08-02 16:27] LABS: Ionized Calcium 0.67 mmol/L (1.15-1.35)
[2016-08-02 16:33] LABS: Calcium 6.1 mg/dL (8.6-10.8); Magnesium 1.6 mg/dL (1.6-2.6); Phosphorous 7.8 mg/dL (2.3-4.7); Potassium 4.7 mEq/L (3.5-4.5)
[2016-08-02] MEDS ORDERED: Calcium Gluconate 2,000 MG in D5% in Water 100 ML IVPB ONE (17:05)
[2016-08-02] MEDS ORDERED: Magnesium Sulfate 1 GM in D5% in Water 100 ML IVPB ONE (17:05)
[2016-08-03] MEDS ORDERED: *HR* Heparin 5,000 UNIT/ML VIAL ONE (01:28)
[2016-08-03] MEDS: PrismaSATE BGK 2/0 5,000 ML CRRT SCH ×5 (02:07→21:29)
[2016-08-03] MEDS: FentaNYL (PF) 1,000 MCG in 0.9 % Sodium Chloride 80 ML IVC SCH ×3 (02:13→23:00)
[2016-08-03] MEDS: Insulin LISPRO 300 UNITS/3 ML VIAL SQ SCH ×6 (03:18→23:46)
[2016-08-03] MEDS: INSULIN HUMAN REGULAR IVC SCH (03:32)
[2016-08-03] MEDS: SODIUM BICARBONATE IVC SCH (03:32)
[2016-08-03] MEDS: D5 IVC SCH (03:32)
[2016-08-03] MEDS: WATER IVC SCH (03:32)
[2016-08-03 03:56] LABS: Hematocrit 43.6 % (35.3-44.9); Hemoglobin 13.9 g/dL (11.5-15.4); Mean Corpuscular HGB Conc 31.9 g/dL (31.6-35.5); Mean Corpuscular Hemoglobin 27.3 pg (28.0-33.3); Mean Corpuscular Volume 85.5 fL (83.0-100.0); Mean Platelet Volume 9.8 fL (9.4-12.4); Nucleated Red Blood Cells 0.9 /100 WBC (0); Platelet Count 178 K/mcL (140-400); Red Cell Distribution Width 18.7 % (11.5-14.5)
[2016-08-03 04:10] LABS: Activated Partial Thrombo Time 87.4 Seconds (26.0-36.0)
[2016-08-03 04:14] LABS: INR 1.6; Prothrombin Time 17.9 Seconds (9.4-12.1)
[2016-08-03 04:17] LABS: Albumin 2.1 g/dL (3.5-5.0); Albumin/Globulin Ratio 0.6 (1.1-2.2); Bilirubin,Total 2.1 mg/dL (0.2-1.2); Calcium 6.1 mg/dL (8.6-10.8); Globulin 3.8 g/dL (2.4-3.5); Magnesium 1.8 mg/dL (1.6-2.6); Phosphorous 6.6 mg/dL (2.3-4.7); Potassium 4.1 mEq/L (3.5-4.5); Total Protein 5.9 g/dL (6.0-8.3)
[2016-08-03 04:38] LABS: Lymphocytes # 0.5 K/mcL (0.6-4.6); Monocytes # 0.5 K/mcL (0.0-1.3); Neutrophils # 23.7 K/mcL (1.6-8.9); Platelet Estimate Normal (Normal)
[2016-08-03] MEDS ORDERED: D5 IVPB ONE (05:38)
[2016-08-03] MEDS ORDERED: WATER IVPB ONE (05:38)
[2016-08-03] MEDS ORDERED: CALCIUM GLUCONATE IVPB ONE (05:38)
--- NOTE | 2016-08-03 06:22 | Pulmonology Progress Note ---
Date of Encounter: 08/03/16 Time of Encounter: 06:22 Assessment and Plan (1) Acute respiratory failure with hypoxia Current Visit: Yes Status: Acute Acute respiratory failure with hypoxia and this particular individual is related to COPD, Obesity hypoventilation and cor pulmonale and more than likely superimposed septic shock. The patient requires full ventilatory support I FiO2 and PEEP levels given the magnitude of hypoxia. Follow-up arterial blood gases pending in reference to adjustment of ventilatory support. The patient will receive dilator therapy may require steroids maximize pulmonary function. KUB X-Ray 08/01/16 12:01 IMPRESSION: Orogastric tube projects in normal, intragastric position. Normal bowel gas pattern. Left basilar atelectasis versus airspace disease. Chest X-Ray 08/03/16 04:00 IMPRESSION: Mild pulmonary vascular congestion with associated mild cardiomegaly. The lines and tubes are stable. Mild right lower lobe atelectasis . Continue daily ABGs. Continue ventilatory support. Patient is hemodynamically stable and is off pressor support. (2) Septic shock Current Visit: Yes Status: Acute Patient suffers from presumptive septic shock with multisystem organ failure. The precise focus site for sepsis in this particular individual is uncertain at this time. The post interventional chest radiograph does not reveal a significant focal infiltrate however given the limitations of the quality of the film, and the interpretation of films by myself, the patient may have a left lower lobe retrocardiac density. Nonetheless, cultures obtained and the patient will be placed on broad-spectrum antimicrobial agents pending results of culture and further evaluation. Blood cultures: Preliminary report demonstrates no growth. Sputum culture: Preliminary results demonstrates no growth. Urine culture final result demonstrates no growth. Culture negative sepsis: No clear source at this time. MRSA screen was ordered and results are pending. If negative will discontinue vancomycin. Continue cefepime start day 08/01/16. Currently day 3. (3) Transaminitis Current Visit: Yes Status: Acute Initially elevated amylase levels from review of blood work as well as hyperbilirubinemia are likely due to shock liver. The patient may also have pre -existing liver dysfunction and in particular fatty liver. Liver function studies will be monitored supportive care provided. (4) Acute renal failure Current Visit: No Status: Acute Acute kidney injury in this individual is due to hemodynamically mediated ATN secondary to septic shock. Is uncertain if the patient has chronic kidney disease but certainly has risk factors for the same (diabetes, hypertension). Given the magnitude of renal failure and accompanying metabolic dysfunction ( metabolic acidosis, hyperkalemia) and anuria to date, Dr. Bernal's been consulted to initiate continuous renal replacement therapy. As per nephrology recommendation we will continue CVVH for another 24 hours since her azotemia has remained elevated. Patient is starting to increase urine output suggestive of some recovery. Qualifiers: Acute renal failure type: with acute tubular necrosis Qualified Code(s): N17.0 - Acute kidney failure with tubular necrosis Subjective Principal diagnosis: Acute respiratory failure with hypoxia and septic shock Interval history: Patient is hemodynamically stable and is currently off pressor support. She responds to pain stimuli and to her name by moving around however she remains sedated on propofol with ventilatory support. Patient has had some increased urine output which is suggestive of recovering renal function. However her output overall remains +2159 mL with last night's output being positive for 11.2 mL. Chemistries showing generalized improvement overall, currently see the CVVH for another 24 hours. Objective PUL Vital signs: Last Vital Signs Temp 98.4 F 08/03/16 03:15 Pulse 86 08/03/16 06:00 Resp 26 08/03/16 06:00 BP 102/67 08/03/16 06:00 Pulse Ox 95 08/03/16 06:00 General appearance: other (Morbidly obese with large panniculi) Eyes: nonicteric ENT: oropharynx moist Neck: supple, no lymphadenopathy, other (Increased neck circumference) Effort: normal Auscultation: bilateral: diminished breath sounds, wheezes Cardiovascular: regular rate and rhythm Gastrointestinal: normoactive bowel sounds, soft, non-tender, other (Extremely large pannus) Integumentary: other (Cool upper extremities, lower extremities exhibiting some flushing today and warmth however distally still cool, diminished pulses upper and lower bilaterally. However pulses via ultrasound were confirmed bilateral lower extremities last night around 7 PM.) Extremities: cyanosis, other (Mottled reticulated vascularity bilateral lower extremities. With erythema and warmth of the right mid to distal lower extremity) pupils equal and round Ventilator Settings Ventilator Settings: Ventilator Settings, Last 8 Hours Ventilator Mode VC+ Ventilator Mode VC+ Ventilator Mode VC+ Ventilator Mode VC+ Ventilator Mode VC+ Ventilator Mode VC+ Ventilator Mode VC+ Ventilator Mode VC+ Ventilator Mode VC+ Ventilator Mode VC+ Ventilator Mode VC+ Ventilator Mode VC+ Ventilator Tidal Volume 350 Setting Ventilator Tidal Volume 350 Setting Ventilator Tidal Volume 350 Setting Ventilator Tidal Volume 350 Setting Ventilator Tidal Volume 350 Setting Ventilator Tidal Volume 350 Setting Ventilator Tidal Volume 350 Setting Ventilator Tidal Volume 350 Setting Ventilator Tidal Volume 350 Setting Ventilator Tidal Volume 350 Setting Ventilator Tidal Volume 350 Setting Ventilator Tidal Volume 350 Setting Ventilator Respiratory Rate 26 Setting Ventilator Respiratory Rate 26 Setting Ventilator Respiratory Rate 26 Setting Ventilator Respiratory Rate 26 Setting Ventilator Respiratory Rate 26 Setting Ventilator Respiratory Rate 26 Setting Ventilator Respiratory Rate 26 Setting Ventilator Respiratory Rate 26 Setting Ventilator Respiratory Rate 26 Setting Ventilator Respiratory Rate 26 Setting Ventilator Respiratory Rate 26 Setting Ventilator Respiratory Rate 26 Setting Actual Respiratory Rate 26 Actual Respiratory Rate 26 Actual Respiratory Rate 26 Actual Respiratory Rate 26 Actual Respiratory Rate 26 Actual Respiratory Rate 26 Actual Respiratory Rate 26 Actual Respiratory Rate 27 Actual Respiratory Rate 26 Actual Respiratory Rate 26 Actual Respiratory Rate 26 Actual Respiratory Rate 26 Positive End Expiratory 14 Pressure Positive End Expiratory 14 Pressure Positive End Expiratory 14 Pressure Positive End Expiratory 14 Pressure Positive End Expiratory 14 Pressure Positive End Expiratory 14 Pressure Positive End Expiratory 14 Pressure Positive End Expiratory 14 Pressure Positive End Expiratory 14 Pressure Positive End Expiratory 14 Pressure Positive End Expiratory 14 Pressure Positive End Expiratory 14 Pressure Peak Inspiratory Airway 28 Pressure Peak Inspiratory Airway 28 Pressure Peak Inspiratory Airway 28 Pressure Peak Inspiratory Airway 28 Pressure Peak Inspiratory Airway 28 Pressure Peak Inspiratory Airway 28 Pressure Peak Inspiratory Airway 27 Pressure Peak Inspiratory Airway 27 Pressure Peak Inspiratory Airway 27 Pressure Peak Inspiratory Airway 27 Pressure Peak Inspiratory Airway 28 Pressure Peak Inspiratory Airway 27 Pressure Results - Laboratory Findings CBC and BMP: 08/03/16 03:45 08/03/16 03:45 ABG ABG pH 7.24 pH Units (7.32-7.45) L 08/02/16 04:25 ABG pCO2 59 mmHg (35-45) H 08/02/16 04:25 ABG pO2 89 mmHg (85-104) 08/02/16 04:25 ABG O2 Saturation 95 % (95-98) 08/02/16 04:25 PT/INR, D-dimer PT 17.9 Seconds (9.4-12.1) H 08/03/16 03:45 Abnormal lab findings: Abnormal lab results WBC 24.7 K/mcL (4.3-11.1) H 08/03/16 03:45 RBC 5.10 M/mcL (3.82-4.97) H 08/03/16 03:45 MCH 27.3 pg (28.0-33.3) L 08/03/16 03:45 RDW 18.7 % (11.5-14.5) H 08/03/16 03:45 Band Neutrophils % 8.0 % (0-4) H 08/03/16 03:45 Neutrophils # 23.7 K/mcL (1.6-8.9) H 08/03/16 03:45 Lymphocytes # 0.5 K/mcL (0.6-4.6) L 08/03/16 03:45 Nucleated RBCs/100 WBC 0.9 /100 WBC (0) H 08/03/16 03:45 Anisocytosis 1+ (Not Present) A 08/02/16 02:30 PT 17.9 Seconds (9.4-12.1) H 08/03/16 03:45 APTT 87.4 Seconds (26.0-36.0) H D 08/03/16 03:45 ABG pH 7.24 pH Units (7.32-7.45) L 08/02/16 04:25 ABG pCO2 59 mmHg (35-45) H 08/02/16 04:25 ABG Total CO2 27.1 mEq/L (20-26) H 08/02/16 04:25 ABG Base Excess -3.5 mEq/L (-2.0 to 3.0) L 08/02/16 04:25 Sodium 133 mEq/L (136-145) L 08/03/16 03:45 Chloride 94 mEq/L (98-109) L 08/03/16 03:45 BUN 69 mg/dL (7-20) H 08/03/16 03:45 Creatinine 4.18 mg/dL (0.57-1.11) H 08/03/16 03:45 Est GFR ( Amer) 14 (> 60) L 08/03/16 03:45 Est GFR (Non-Af Amer) 12 (> 60) L 08/03/16 03:45 Glucose 190 mg/dL (70-99) H 08/03/16 03:45 POC Glucose 180 (58-89) H 08/02/16 23:06 Calculated Osmolality 301 (280-300) H 08/03/16 03:45 Calcium 6.1 mg/dL (8.6-10.8) L 08/03/16 03:45 Ionized Calcium 0.66 mmol/L (1.15-1.35) L 08/03/16 03:45 Phosphorus 6.6 mg/dL (2.3-4.7) H 08/03/16 03:45 Total Bilirubin 2.1 mg/dL (0.2-1.2) H 08/03/16 03:45 AST 862 Units/L (5-34) H 08/03/16 03:45 ALT 2099 Units/L (0-55) H 08/03/16 03:45 Alkaline Phosphatase 170 Units/L (38-126) H 08/03/16 03:45 Serum Total Protein 5.9 g/dL (6.0-8.3) L 08/03/16 03:45 Albumin 2.1 g/dL (3.5-5.0) L D 08/03/16 03:45 Globulin 3.8 g/dL (2.4-3.5) H 08/03/16 03:45 Albumin/Globulin Ratio 0.6 (1.1-2.2) L 08/03/16 03:45 - Microbiology Findings Microbiology Findings: Microbiology, Last 48 Hours 08/01/16 20:15 Urine Culture - Final Urine,Catheterized No growth. 08/01/16 13:53 Sputum Culture - Preliminary Sputum - Clinical Findings Intake & Output: Intake & Output 08/02/16 08/02/16 08/03/16 15:59 23:59 07:59 Intake Total 421 / 421 1094.1 / 1094.1 667.4 / 667.4 Output Total 748 / 748 1104 / 1104 603 / 603 Balance -327 / -327 -9.9 / -9.9 64.4 / 64.4 Weight 159 kg Consult Discharge Plan - Plan Referrals: Brittany Schofield MD [Primary Care Provider] -
[2016-08-03] MEDS ORDERED: Aminoglycoside Consult 1 EACH MC ONE (07:39)
--- NOTE | 2016-08-03 07:51 | Nephrology Progress Note ---
Date of Encounter: 08/03/16 Time of Encounter: 07:49 - Assessment and Plan (1) Acute renal failure Current Visit: No Status: Acute Patient has acute kidney injury in the setting of sepsis and respiratory failure and multisystem organ failure. She currently is on CVVH. Her dialysis appears to be functioning adequately. She starting to increase urine output signaling that she may be starting to recover some renal function. Since her azotemia remains elevated we will continue with the CVVH for at least another 24 hours. Qualifiers: Acute renal failure type: with acute tubular necrosis Qualified Code(s): N17.0 - Acute kidney failure with tubular necrosis (2) Acute respiratory failure with hypoxia Current Visit: Yes Status: Acute (3) Sepsis syndrome Current Visit: No Status: Acute Subjective Principal diagnosis: Acute respiratory failure with hypoxia and septic shock Interval history: Patient remained sedated on the ventilator. She is more hemodynamically stable. She is no longer requiring pressors. Her urine output is starting to increase. She is being maintained on CVVH. Her potassium is under better control. There is slight improvement in her azotemia. Objective - Vital Signs Vital signs: Vital Signs Temp Pulse Resp BP Pulse Ox 08/03/16 07:00 87 26 102/66 90 L 08/03/16 06:00 86 26 102/67 95 08/03/16 05:30 26 98/65 88 L 08/03/16 05:00 87 26 93/63 91 L 08/03/16 04:04 87 26 112/72 88 L 08/03/16 03:24 26 105/69 90 L 08/03/16 03:15 98.4 F 85 26 108/71 85 L 08/03/16 02:00 86 26 87/58 88 L 08/03/16 01:35 27 99/65 95 08/03/16 01:00 89 26 106/68 97 08/03/16 00:06 90 26 97/63 95 08/02/16 23:42 26 96/62 95 08/02/16 23:20 98.5 F 92 26 111/71 96 08/02/16 22:00 87 26 107/70 95 08/02/16 21:21 26 101/64 94 L 08/02/16 21:00 89 26 116/71 94 L 08/02/16 20:00 89 26 107/69 93 L 08/02/16 19:30 26 106/67 92 L 08/02/16 19:00 98.3 F 89 26 117/71 95 08/02/16 18:02 26 104/61 95 08/02/16 18:00 89 26 112/69 95 08/02/16 17:09 89 08/02/16 17:00 97.9 F 89 26 93/58 94 L 08/02/16 16:11 26 105/65 94 L 08/02/16 16:00 97.9 F 90 22 114/69 94 L 08/02/16 15:00 89 26 100/62 97 08/02/16 14:25 26 108/65 97 08/02/16 14:00 89 20 107/64 94 L 08/02/16 13:00 90 20 104/63 94 L 08/02/16 12:53 92 08/02/16 12:10 20 113/63 94 L 08/02/16 12:00 92 20 101/58 94 L 08/02/16 11:00 90 20 102/59 94 L 08/02/16 10:34 27 91/55 92 L 08/02/16 10:00 99 26 94/56 89 L 08/02/16 09:07 96 26 118/64 89 L 08/02/16 08:50 26 130/69 89 L 08/02/16 08:11 99.0 F Intake and Output 08/02/16 08/02/16 08/03/16 15:59 23:59 07:59 Intake Total 421 / 421 1094.1 / 1094.1 862.2 / 862.2 Output Total 748 / 748 1104 / 1104 687 / 687 Balance -327 / -327 -9.9 / -9.9 175.2 / 175.2 Intake: IV Fluids 421 / 421 1046.1 / 1046.1 783.2 / 783.2 FentaNYL (PF) 1,000 MCG 4 / 4 28.8 / 28.8 93.2 / 93.2 In 0.9 % Sodium Chloride 80 ML @ 50 MCG/HR 5 mls/ hr IVC CONT [facility] Rx#: [id number] Heparin 25,000 UNIT/500 70 / 70 495.3 / 495.3 406 / 406 ML D5W 25,000 unit In 500 ml @ 14 UNIT/KG/HR 44.8 mls/hr IVC .[id number] [facility] Rx#:[id number] Levophed 4 MG In Dextrose 137 / 137 12 / 12 5% 250 ML @ 5 MCG/MIN 19 .05 mls/hr IVC CONT [facility] Rx#:[id number] Diprivan 1,000 mg In 100 100 / 100 200 / 200 224.0 / 224.0 ml @ 5 MCG/KG/MIN 4.776 mls/hr IVC .[id number] [facility] Rx#:[id number] Calcium Gluconate 2,000 110 / 110 120 / 120 MG In Dextrose 5% 100 ML @ 220 mls/hr IVPB ONCE ONE Rx#:[id number] Calcium Gluconate 4,000 48 / 48 MG In Dextrose 5% 250 ML @ 72.5 mls/hr IVPB ONCE ONE Rx#:[id number] Maxipime 2,000 MG In 100 / 100 Dextrose 5% (Minibag+) 100 ML 100 ML @ 200 mls/ hr IVPB Q24H [facility] Rx#: [id number] Magnesium Sulfate 1 GM In 102 / 102 Dextrose 5% 100 ML @ 100 mls/hr IVPB ONCE ONE Rx# :[id number] Tube Feeding 48 / 48 79 / 79 Free Water Intake Amount 0 / 0 0 / 0 Output: Urine 75 / 75 Tonya 53 / 53 434 / 434 162 / 162 Catheter 695 / 695 595 / 595 525 / 525 Gastric Drainage 0 / 0 0 / 0 Other: Stool Size Small Stool Consistency soft Stool Color Brown # Bowel Movements 1 Weight 159 kg Blood Glucose* 179 180 166 Patient Weight 08/03/16 23:59 Weight 159 kg - General Appearance Exam: Patient is sedated on the ventilator. She is in no acute distress. She is morbidly obese. Lungs his breath sounds. Heart regular rate and rhythm. Abdomen is soft. There is no tenderness guarding nor rigidity. She has some mild lower extremity swelling. He ischemic changes of her feet are somewhat improved. There is a temporary dialysis catheter in the left internal jugular vein. - Lab 08/03/16 03:45 08/03/16 03:45 Most recent lab results ABG pH 7.24 pH Units (7.32-7.45) L 08/02/16 04:25 ABG pCO2 59 mmHg (35-45) H 08/02/16 04:25 ABG pO2 89 mmHg (85-104) 08/02/16 04:25 ABG HCO3 25.3 mEQ/L (21-27) 08/02/16 04:25 ABG O2 Saturation 95 % (95-98) 08/02/16 04:25 Calcium 6.1 mg/dL (8.6-10.8) L 08/03/16 03:45 Phosphorus 6.6 mg/dL (2.3-4.7) H 08/03/16 03:45 Magnesium 1.8 mg/dL (1.6-2.6) 08/03/16 03:45 Consult Discharge Plan - Plan Referrals: Brittany Schofield MD [Primary Care Provider] -
[2016-08-03] MEDS: Heparin 25,000 UNIT/500 ML D5W 25,000 UNIT/500 ML MLS IVC SCH ×2 (09:07→18:17)
[2016-08-03] MEDS: Pantoprazole 40 MG VIAL IVPB SCH (09:35)
[2016-08-03] MEDS: Chlorhexidine Rinse 15 ML MOUTHWASH MM SCH ×2 (09:35→19:38)
[2016-08-03] MEDS: Lacri-Lube 3.5 GM TUBE BOTH EYES SCH ×2 (09:35→19:39)
[2016-08-03] MEDS ORDERED: Vancomycin 1,500 MG in D5% in Water 250 ML IVPB ONE (10:00)
--- NOTE | 2016-08-03 10:53 | Event Note ---
Date of Encounter: 08/03/16 Time of Encounter: 10:46 Patient examined, chart and all data reviewed as well as recent chest imaging studies. The patient's management was reviewed in detail this morning during multidisciplinary critical care rounds and the management was also reviewed in detail with Dr. Leavitt, I reviewed her comprehensive progress note and agree with the essence of her comments. The patient continues to require full ventilatory support for acute respiratory failure with hypoxia and hypercapnia due to septic shock but also related to COPD, obesity hypoventilation syndrome and probable cor pulmonale. I note an improvement in FiO2 requirements, but have maintained relatively moderate level PEEP given likelihood of de-recruitment if reduced in light of patient obesity and propensity for bibasilar atelectasis. Currently, the patient is free of pressor requirement. To date all cultures are negative, pending the results of MRSA swab if negative vancomycin will be discontinued. In essence, the focus of infection is unclear from the evaluation performed today and the patient seemingly has culture- negative septic shock current multisystem organ failure. The patient continues to require continuous renal replacement therapy although I do note an improvement in spontaneous urine output. Following institution of systemic anticoagulation via heparin infusion, staff reports absence of artificial kidney thrombosis and furthermore, I noted an improvement in obvious perfusion to the lower extremities although ischemia acrocyanosis is still a feature on physical examination of the feet. As well as rebound hyperreninemia, erythema, edema and skin blistering). Continue all other medical measures including provision of nutritional support via enteral route, ulcer prophylaxis. In spite of obvious improvement of clinical status, the patient still has very high or telemetry rate. Agent suffers from multisystem organ failure including respiratory failure and renal failure. Today's management required 35 minutes of critical care time devoted to provisions of mechanical ventilatory support treatment of septic shock and assistive management with provision of anticoagulation therapy and continuous renal replacement therapy. [facility] [phone]
[2016-08-03] MEDS: Norepinephrine 4 MG in D5% in Water 250 ML IVC SCH (12:00)
[2016-08-03] MEDS: Cefepime HCl 2,000 MG in D5% in Water (Mini-Bag+) 100 ML IVPB SCH (17:14)
[2016-08-04 02:56] LABS: Basophils # 0.1 K/mcL (0.0-0.2); Basophils % 0.3 %; Eosinophils # 0.2 K/mcL (0.0-0.6); Eosinophils % 1.3 %; Hematocrit 42.9 % (35.3-44.9); Hemoglobin 13.5 g/dL (11.5-15.4); Immature Granulocytes % 1.6 % (0-4); Lymphocytes % 11.8 %; Mean Corpuscular HGB Conc 31.5 g/dL (31.6-35.5); Mean Corpuscular Hemoglobin 26.8 pg (28.0-33.3); Mean Corpuscular Volume 85.3 fL (83.0-100.0); Mean Platelet Volume 10.2 fL (9.4-12.4); Monocytes # 0.7 K/mcL (0.0-1.3); Monocytes % 4.3 %; Neutrophils # 13.4 K/mcL (1.6-8.9); Nucleated Red Blood Cells 0.6 /100 WBC (0); Platelet Count 156 K/mcL (140-400); Red Blood Count 5.03 M/mcL (3.82-4.97); Red Cell Distribution Width 18.5 % (11.5-14.5); Segmented Neutrophils % 80.7 %
[2016-08-04 03:11] LABS: Albumin/Globulin Ratio 0.5 (1.1-2.2); Bilirubin,Total 2.1 mg/dL (0.2-1.2); Calcium 6.7 mg/dL (8.6-10.8); Globulin 3.9 g/dL (2.4-3.5); Potassium 3.4 mEq/L (3.5-4.5); Total Protein 5.9 g/dL (6.0-8.3)
[2016-08-04] MEDS: Insulin LISPRO 300 UNITS/3 ML VIAL SQ SCH ×5 (03:16→19:39)
[2016-08-04 03:26] LABS: Ionized Calcium 0.79 mmol/L (1.15-1.35)
[2016-08-04 03:35] LABS: Magnesium 1.7 mg/dL (1.6-2.6); Phosphorous 5.8 mg/dL (2.3-4.7)
[2016-08-04] MEDS: PrismaSATE BGK 2/0 5,000 ML CRRT SCH ×3 (03:38→19:22)
[2016-08-04] MEDS: Heparin 25,000 UNIT/500 ML D5W 25,000 UNIT/500 ML MLS IVC SCH ×2 (04:23→14:13)
--- NOTE | 2016-08-04 06:55 | Pulmonology Progress Note ---
<Myrtle Diaz - Last Filed: 08/04/16 11:07> Date of Encounter: 08/04/16 Time of Encounter: 06:30 Assessment and Plan (1) Acute respiratory failure with hypoxia Current Visit: Yes Status: Acute Related to COPD, Obesity hypoventilation and cor pulmonale and superimposed septic shock CXR today demonstrates persistent enlargement of cardiac silhouette with prominence of pulmonary vasculature Currently on full ventilator support with FiO2 50% at 92% saturation Started scheduled breathing treatments Hemodynamically stable and off pressor support (2) Septic shock Current Visit: Yes Status: Resolved Presumptive septic shock with multisystem organ failure Focus site of sepsis is uncertain at this time Currently on Cefepime for antibiotic coverage, day 4 of treatment All culture reports show no growth at this time, MRSA screen is negative (3) Transaminitis Current Visit: Yes Status: Acute Initial elevated amylast levels as well as hyperbilirubinmia are likely due to shock liver. May also have pre-existing fatty liver Today AST: 244 (862 yesterday), ALT: 1379 (9 yesterday) (4) Acute renal failure Current Visit: No Status: Acute Due to hemodynamically mediated ATN secondary to septic shock Dr. Bernal consulted Discontinue CVVH today Electrolyte protocol ordered Will continue to follow labs Qualifiers: Acute renal failure type: with acute tubular necrosis Qualified Code(s): N17.0 - Acute kidney failure with tubular necrosis (5) DVT prophylaxis Current Visit: Yes Status: Acute Currently on Heparin drip Subjective Principal diagnosis: Acute respiratory failure with hypoxia and septic shock Interval history: Pt is intubated and sedated. Pt is able to follow commands and nod when questioned. Right IJ CVC, Left IJ dialysis catheter, Right femoral arterial line and Jones catheter in place. Fluid balance of -1130 over last 24 hours ( cumulative 1017) Objective PUL Vital signs: Last Vital Signs Temp 98.0 F 08/04/16 03:00 Pulse 97 08/04/16 06:00 Resp 26 08/04/16 06:00 BP 137/87 08/04/16 06:00 Pulse Ox 92 L 08/04/16 06:00 General appearance: other (Intubated and sedated) Eyes: nonicteric ENT: oropharynx moist Neck: supple Effort: other (Ventilator) Auscultation: bilateral: rhonchi Cardiovascular: regular rate and rhythm Gastrointestinal: normoactive bowel sounds, other (Obese) Extremities: pink and warm, other (Diminished BUE, BLE pulses by palpation. Multiple blisters present on dorsal aspect of feet bilaterally. Erythema and warmth of BLE from calf to toes) Ventilator Settings Ventilator Settings: Ventilator Settings, Last 8 Hours Ventilator Mode VC+ Ventilator Mode VC+ Ventilator Mode VC+ Ventilator Mode VC+ Ventilator Mode VC+ Ventilator Mode VC+ Ventilator Mode VC+ Ventilator Mode VC+ Ventilator Mode VC+ Ventilator Mode VC+ Ventilator Mode VC+ Ventilator Mode VC+ Ventilator Tidal Volume 350 Setting Ventilator Tidal Volume 350 Setting Ventilator Tidal Volume 350 Setting Ventilator Tidal Volume 350 Setting Ventilator Tidal Volume 350 Setting Ventilator Tidal Volume 350 Setting Ventilator Tidal Volume 350 Setting Ventilator Tidal Volume 350 Setting Ventilator Tidal Volume 350 Setting Ventilator Tidal Volume 350 Setting Ventilator Tidal Volume 350 Setting Ventilator Tidal Volume 350 Setting Ventilator Respiratory Rate 26 Setting Ventilator Respiratory Rate 26 Setting Ventilator Respiratory Rate 26 Setting Ventilator Respiratory Rate 26 Setting Ventilator Respiratory Rate 26 Setting Ventilator Respiratory Rate 26 Setting Ventilator Respiratory Rate 26 Setting Ventilator Respiratory Rate 26 Setting Ventilator Respiratory Rate 26 Setting Ventilator Respiratory Rate 26 Setting Ventilator Respiratory Rate 26 Setting Ventilator Respiratory Rate 26 Setting Actual Respiratory Rate 26 Actual Respiratory Rate 26 Actual Respiratory Rate 26 Actual Respiratory Rate 26 Actual Respiratory Rate 26 Actual Respiratory Rate 26 Actual Respiratory Rate 26 Actual Respiratory Rate 26 Actual Respiratory Rate 26 Actual Respiratory Rate 26 Actual Respiratory Rate 26 Actual Respiratory Rate 26 Positive End Expiratory 14 Pressure Positive End Expiratory 14 Pressure Positive End Expiratory 14 Pressure Positive End Expiratory 14 Pressure Positive End Expiratory 14 Pressure Positive End Expiratory 14 Pressure Positive End Expiratory 14 Pressure Positive End Expiratory 14 Pressure Positive End Expiratory 14 Pressure Positive End Expiratory 14 Pressure Positive End Expiratory 14 Pressure Positive End Expiratory 14 Pressure Peak Inspiratory Airway 34 Pressure Peak Inspiratory Airway 34 Pressure Peak Inspiratory Airway 37 Pressure Peak Inspiratory Airway 32 Pressure Peak Inspiratory Airway 32 Pressure Peak Inspiratory Airway 32 Pressure Peak Inspiratory Airway 33 Pressure Peak Inspiratory Airway 33 Pressure Peak Inspiratory Airway 33 Pressure Peak Inspiratory Airway 31 Pressure Peak Inspiratory Airway 31 Pressure Peak Inspiratory Airway 31 Pressure Results - Laboratory Findings CBC and BMP: 08/04/16 02:50 08/04/16 02:50 ABG ABG pH 7.24 pH Units (7.32-7.45) L 08/02/16 04:25 ABG pCO2 59 mmHg (35-45) H 08/02/16 04:25 ABG pO2 89 mmHg (85-104) 08/02/16 04:25 ABG O2 Saturation 95 % (95-98) 08/02/16 04:25 PT/INR, D-dimer PT 17.9 Seconds (9.4-12.1) H 08/03/16 03:45 Abnormal lab findings: Abnormal lab results WBC 16.6 K/mcL (4.3-11.1) H 08/04/16 02:50 RBC 5.03 M/mcL (3.82-4.97) H 08/04/16 02:50 MCH 26.8 pg (28.0-33.3) L 08/04/16 02:50 MCHC 31.5 g/dL (31.6-35.5) L 08/04/16 02:50 RDW 18.5 % (11.5-14.5) H 08/04/16 02:50 Band Neutrophils % 8.0 % (0-4) H 08/03/16 03:45 Neutrophils # 13.4 K/mcL (1.6-8.9) H 08/04/16 02:50 Nucleated RBCs/100 WBC 0.6 /100 WBC (0) H 08/04/16 02:50 Anisocytosis 1+ (Not Present) A 08/02/16 02:30 PT 17.9 Seconds (9.4-12.1) H 08/03/16 03:45 APTT 85.6 Seconds (26.0-36.0) H 08/04/16 02:50 ABG pH 7.24 pH Units (7.32-7.45) L 08/02/16 04:25 ABG pCO2 59 mmHg (35-45) H 08/02/16 04:25 ABG Total CO2 27.1 mEq/L (20-26) H 08/02/16 04:25 ABG Base Excess -3.5 mEq/L (-2.0 to 3.0) L 08/02/16 04:25 Sodium 134 mEq/L (136-145) L 08/04/16 02:50 Potassium 3.4 mEq/L (3.5-4.5) L 08/04/16 02:50 Chloride 96 mEq/L (98-109) L 08/04/16 02:50 BUN 52 mg/dL (7-20) H 08/04/16 02:50 Creatinine 2.89 mg/dL (0.57-1.11) H 08/04/16 02:50 Est GFR ( Amer) 22 (> 60) L 08/04/16 02:50 Est GFR (Non-Af Amer) 18 (> 60) L 08/04/16 02:50 Glucose 127 mg/dL (70-99) H 08/04/16 02:50 POC Glucose 129 (58-89) H 08/03/16 23:09 Calcium 6.7 mg/dL (8.6-10.8) L 08/04/16 02:50 Ionized Calcium 0.79 mmol/L (1.15-1.35) L 08/04/16 03:00 Phosphorus 5.8 mg/dL (2.3-4.7) H 08/04/16 03:00 Total Bilirubin 2.1 mg/dL (0.2-1.2) H 08/04/16 02:50 AST 244 Units/L (5-34) H 08/04/16 02:50 ALT 1379 Units/L (0-55) H 08/04/16 02:50 Alkaline Phosphatase 169 Units/L (38-126) H 08/04/16 02:50 Serum Total Protein 5.9 g/dL (6.0-8.3) L 08/04/16 02:50 Albumin 2.0 g/dL (3.5-5.0) L 08/04/16 02:50 Globulin 3.9 g/dL (2.4-3.5) H 08/04/16 02:50 Albumin/Globulin Ratio 0.5 (1.1-2.2) L 08/04/16 02:50 - Microbiology Findings Microbiology Findings: Microbiology, Last 48 Hours 08/01/16 13:53 Sputum Culture - Final Sputum 08/01/16 13:45 Blood Culture - Preliminary Peripheral Venipuncture No growth. 08/01/16 20:15 Urine Culture - Final Urine,Catheterized No growth. - Clinical Findings Intake & Output: Intake & Output 08/03/16 08/03/16 08/04/16 15:59 23:59 07:59 Intake Total 798.1 / 798.1 873.4 / 873.4 524.2 / 524.2 Output Total 973 / 973 1122 / 1122 1625 / 1625 Balance -174.9 / -174.9 -248.6 / -248.6 -1100.8 / -1100.8 Weight 163.2 kg Consult Discharge Plan - Plan Referrals: Brittany Schofield MD [Primary Care Provider] - <AngélicaalistairJen myers Nathaly - Last Filed: 08/04/16 12:35> Objective PUL Vital signs: Last Vital Signs Temp 97.3 F L 08/04/16 07:30 Pulse 77 08/04/16 11:00 Resp 26 08/04/16 11:00 BP 118/68 08/04/16 11:00 Pulse Ox 100 08/04/16 11:00 Ventilator Settings Ventilator Settings: Ventilator Settings, Last 8 Hours Ventilator Mode VC+ Ventilator Mode VC+ Ventilator Mode VC+ Ventilator Mode VC+ Ventilator Mode VC+ Ventilator Mode VC+ Ventilator Mode VC+ Ventilator Mode VC+ Ventilator Mode VC+ Ventilator Mode VC+ Ventilator Mode VC+ Ventilator Tidal Volume 350 Setting Ventilator Tidal Volume 350 Setting Ventilator Tidal Volume 350 Setting Ventilator Tidal Volume 350 Setting Ventilator Tidal Volume 350 Setting Ventilator Tidal Volume 350 Setting Ventilator Tidal Volume 350 Setting Ventilator Tidal Volume 350 Setting Ventilator Tidal Volume 350 Setting Ventilator Tidal Volume 350 Setting Ventilator Tidal Volume 350 Setting Ventilator Respiratory Rate 26 Setting Ventilator Respiratory Rate 26 Setting Ventilator Respiratory Rate 26 Setting Ventilator Respiratory Rate 26 Setting Ventilator Respiratory Rate 26 Setting Ventilator Respiratory Rate 26 Setting Ventilator Respiratory Rate 26 Setting Ventilator Respiratory Rate 26 Setting Ventilator Respiratory Rate 26 Setting Ventilator Respiratory Rate 26 Setting Ventilator Respiratory Rate 26 Setting Actual Respiratory Rate 26 Actual Respiratory Rate 26 Actual Respiratory Rate 26 Actual Respiratory Rate 26 Actual Respiratory Rate 26 Actual Respiratory Rate 26 Actual Respiratory Rate 26 Actual Respiratory Rate 26 Actual Respiratory Rate 26 Actual Respiratory Rate 26 Positive End Expiratory 14 Pressure Positive End Expiratory 14 Pressure Positive End Expiratory 14 Pressure Positive End Expiratory 14 Pressure Positive End Expiratory 14 Pressure Positive End Expiratory 14 Pressure Positive End Expiratory 14 Pressure Positive End Expiratory 14 Pressure Positive End Expiratory 14 Pressure Positive End Expiratory 14 Pressure Positive End Expiratory 14 Pressure Peak Inspiratory Airway 38 Pressure Peak Inspiratory Airway 32 Pressure Peak Inspiratory Airway 28 Pressure Peak Inspiratory Airway 29 Pressure Peak Inspiratory Airway 29 Pressure Peak Inspiratory Airway 30 Pressure Peak Inspiratory Airway 31 Pressure Peak Inspiratory Airway 34 Pressure Peak Inspiratory Airway 34 Pressure Peak Inspiratory Airway 37 Pressure Results - Laboratory Findings CBC and BMP: 08/04/16 02:50 08/04/16 02:50 ABG ABG pH 7.39 pH Units (7.32-7.45) 08/04/16 08:09 ABG pCO2 50 mmHg (35-45) H 08/04/16 08:09 ABG pO2 92 mmHg (85-104) 08/04/16 08:09 ABG O2 Saturation 97 % (95-98) 08/04/16 08:09 PT/INR, D-dimer PT 17.9 Seconds (9.4-12.1) H 08/03/16 03:45 Abnormal lab findings: Abnormal lab results WBC 16.6 K/mcL (4.3-11.1) H 08/04/16 02:50 RBC 5.03 M/mcL (3.82-4.97) H 08/04/16 02:50 MCH 26.8 pg (28.0-33.3) L 08/04/16 02:50 MCHC 31.5 g/dL (31.6-35.5) L 08/04/16 02:50 RDW 18.5 % (11.5-14.5) H 08/04/16 02:50 Band Neutrophils % 8.0 % (0-4) H 08/03/16 03:45 Neutrophils # 13.4 K/mcL (1.6-8.9) H 08/04/16 02:50 Nucleated RBCs/100 WBC 0.6 /100 WBC (0) H 08/04/16 02:50 Anisocytosis 1+ (Not Present) A 08/02/16 02:30 PT 17.9 Seconds (9.4-12.1) H 08/03/16 03:45 APTT 85.6 Seconds (26.0-36.0) H 08/04/16 02:50 ABG pCO2 50 mmHg (35-45) H 08/04/16 08:09 ABG HCO3 30.3 mEQ/L (21-27) H 08/04/16 08:09 ABG Total CO2 31.8 mEq/L (20-26) H 08/04/16 08:09 ABG Base Excess 4.1 mEq/L (-2.0 to 3.0) H 08/04/16 08:09 Sodium 134 mEq/L (136-145) L 08/04/16 02:50 Potassium 3.4 mEq/L (3.5-4.5) L 08/04/16 02:50 Chloride 96 mEq/L (98-109) L 08/04/16 02:50 BUN 52 mg/dL (7-20) H 08/04/16 02:50 Creatinine 2.89 mg/dL (0.57-1.11) H 08/04/16 02:50 Est GFR ( Amer) 22 (> 60) L 08/04/16 02:50 Est GFR (Non-Af Amer) 18 (> 60) L 08/04/16 02:50 Glucose 127 mg/dL (70-99) H 08/04/16 02:50 POC Glucose 129 (58-89) H 08/03/16 23:09 Calcium 6.7 mg/dL (8.6-10.8) L 08/04/16 02:50 Ionized Calcium 0.79 mmol/L (1.15-1.35) L 08/04/16 03:00 Phosphorus 5.8 mg/dL (2.3-4.7) H 08/04/16 03:00 Total Bilirubin 2.1 mg/dL (0.2-1.2) H 08/04/16 02:50 AST 244 Units/L (5-34) H 08/04/16 02:50 ALT 1379 Units/L (0-55) H 08/04/16 02:50 Alkaline Phosphatase 169 Units/L (38-126) H 08/04/16 02:50 Serum Total Protein 5.9 g/dL (6.0-8.3) L 08/04/16 02:50 Albumin 2.0 g/dL (3.5-5.0) L 08/04/16 02:50 Globulin 3.9 g/dL (2.4-3.5) H 08/04/16 02:50 Albumin/Globulin Ratio 0.5 (1.1-2.2) L 08/04/16 02:50 - Microbiology Findings Microbiology Findings: Microbiology, Last 48 Hours 08/01/16 13:53 Sputum Culture - Final Sputum 08/01/16 13:45 Blood Culture - Preliminary Peripheral Venipuncture No growth. 08/01/16 20:15 Urine Culture - Final Urine,Catheterized No growth. - Clinical Findings Intake & Output: Intake & Output 08/03/16 08/04/16 08/04/16 23:59 07:59 15:59 Intake Total 873.4 / 873.4 733.1 / 733.1 128 / 128 Output Total 1122 / 1122 1753 / 1753 800 / 800 Balance -248.6 / -248.6 -1019.9 / -1019.9 -672 / -672 Weight 163.2 kg - Attending Attestation I examined this patient and my medical decision-making was reviewed with the HYDROGEN OPERATOR/PA/Advanced Practice Nurse/Resident Physician. I agree with the documented findings, disposition and treatment plan as described except to the extent set forth below. Patient seen and examined. Labs, radiology, chart personally reviewed. Agree with resident's history and physical, assessment, plan with following comments: SENIOR ASSET MANAGER: Patient follows commands and she is still on sedation, Pulmonary: Acceptable oxygenation and ventilation, but she is still on low TV lung protective strategy. Repeat ABG and checked her Plp is only 27, I suspect her morbid obesity has something to do with hypoxia (obesity hypoventilation syndrome). Will plan to release low TV and hopefully will improve her comfort and lower the sedation. Advance ET tube on CXR looks it is high. Cardiovascular: stable GI: Nutrition per dietary and GI prophylaxis per routine Heme: DVT prophylaxis per routine. Check lower ext dopplers and continue heparin for now ID: Continue antibiotic and plan to de-escalation Renal; urine out put and renal funtion reviewed. Appreciate nephrology input. Electrolytes protocol Endorcine: blood glucose is monitored Lines: all lines checked and no evidence of infections Skin: skin care to prevent pressure ulcers per nursing routine care I spent 35 min of Critical Care time with this patient. It involved decision making of high complexity to assess, manipulate, and support vital organ system failure and/or to prevent further life threatening deterioration of the patient' s condition. The time involved in the performance of separately reportable procedures was not counted toward critical care time.
[2016-08-04 08:18] LABS: ABG Base Excess 4.1 mEq/L (-2.0 to 3.0); ABG HCO3 30.3 mEQ/L (21-27); ABG Oxygen Saturation 97 % (95-98); ABG PCO2 50 mmHg (35-45); ABG PH 7.39 pH Units (7.32-7.45); ABG PO2 92 mmHg (85-104); ABG TCO2 31.8 mEq/L (20-26); Blood Gas FiO2 50 %; Blood Gas Respiration Rate 14; Blood Gas VT 350 cc
--- NOTE | 2016-08-04 09:36 | Nephrology Progress Note ---
Date of Encounter: 08/04/16 Time of Encounter: 09:34 - Assessment and Plan (1) Acute renal failure Current Visit: No Status: Acute Patient has acute kidney injury in the setting of sepsis and respiratory failure and multisystem organ failure. The patient's urine output continues to increase. We can go ahead and discontinue the CVVH. If her renal function continues to improve we should be able to remove the temporary dialysis catheter within the next 24-48 hours. Qualifiers: Acute renal failure type: with acute tubular necrosis Qualified Code(s): N17.0 - Acute kidney failure with tubular necrosis (2) Acute respiratory failure with hypoxia Current Visit: Yes Status: Acute (3) Sepsis syndrome Current Visit: No Status: Acute Subjective Principal diagnosis: Acute respiratory failure with hypoxia and septic shock Interval history: The patient remains sedated on the ventilator. She is hemodynamically stable. Urine output continues to increase. She remains on CVVH. Objective - Vital Signs Vital signs: Vital Signs Temp Pulse Resp BP Pulse Ox 08/04/16 08:00 96 26 149/92 98 08/04/16 07:30 97.3 F L 08/04/16 07:20 26 154/97 93 L 08/04/16 07:00 94 08/04/16 06:00 97 26 137/87 92 L 08/04/16 05:30 26 147/94 94 L 08/04/16 05:00 96 26 147/87 93 L 08/04/16 04:00 97 26 129/81 96 08/04/16 03:30 26 136/85 89 L 08/04/16 03:00 98.0 F 96 26 136/83 88 L 08/04/16 02:00 99 26 132/83 91 L 08/04/16 01:20 26 129/83 90 L 08/04/16 01:00 98 26 134/84 90 L 08/04/16 00:00 99 26 134/84 87 L 08/03/16 23:51 26 128/81 86 L 08/03/16 23:00 99.0 F 103 26 125/80 88 L 08/03/16 22:00 104 26 133/83 89 L 08/03/16 21:38 26 128/79 91 L 08/03/16 21:00 105 26 126/80 89 L 08/03/16 20:00 98.7 F 105 26 128/81 89 L 08/03/16 19:41 26 112/68 89 L 08/03/16 19:00 90 26 114/69 89 L 08/03/16 18:22 26 107/69 90 L 08/03/16 18:00 87 26 107/69 90 L 08/03/16 17:00 87 26 107/69 89 L 08/03/16 16:11 26 87 L 08/03/16 16:00 98.7 F 88 26 110/70 88 L 08/03/16 15:00 84 26 112/71 88 L 08/03/16 14:00 84 26 104/68 91 L 08/03/16 13:00 84 26 104/66 85 L 08/03/16 12:00 98.7 F 84 26 110/70 89 L 08/03/16 11:21 26 112/71 88 L 08/03/16 11:00 81 26 114/72 88 L 08/03/16 10:00 84 26 107/68 88 L 08/03/16 09:48 26 108/68 87 L Intake and Output 08/03/16 08/04/16 08/04/16 23:59 07:59 15:59 Intake Total 873.4 / 873.4 733.1 / 733.1 Output Total 1122 / 1122 1753 / 1753 250 / 250 Balance -248.6 / -248.6 -1019.9 / -1019.9 -238 / -238 Intake: IV Fluids 787.4 / 787.4 653.1 / 653.1 FentaNYL (PF) 1,000 MCG 37.9 / 37.9 51.5 / 51.5 In 0.9 % Sodium Chloride 80 ML @ 50 MCG/HR 5 mls/ hr IVC CONT [facility] Rx#: [id number] Heparin 25,000 UNIT/500 449.5 / 449.5 401.6 / 401.6 ML D5W 25,000 unit In 500 ml @ 14 UNIT/KG/HR 44.8 mls/hr IVC .[id number] [facility] Rx#:[id number] Diprivan 1,000 mg In 100 200.0 / 200.0 200.0 / 200.0 ml @ 5 MCG/KG/MIN 4.776 mls/hr IVC .[id number] [facility] Rx#:[id number] Maxipime 2,000 MG In 100 / 100 Dextrose 5% (Minibag+) 100 ML 100 ML @ 200 mls/ hr IVPB Q24H [facility] Rx#: [id number] Tube Feeding 86 / 86 80 / 80 12 / 12 Free Water Intake Amount 0 / 0 0 / 0 Output: Tonya 202 / 202 3 / 3 0 / 0 Catheter 920 / 920 1750 / 1750 250 / 250 Other: Weight 163.2 kg Blood Glucose* 129 116 Patient Weight 08/04/16 23:59 Weight 163.2 kg - General Appearance Exam: Patient is sedated on the ventilator. She is in no acute distress. Lungsbreath sounds. Heart regular rate and rhythm. Abdomen is obese. There is no tenderness guarding or rigidity. There is some lower extremity swelling. There are stable ischemic changes of - Lab 08/04/16 02:50 08/04/16 02:50 Most recent lab results ABG pH 7.39 pH Units (7.32-7.45) 08/04/16 08:09 ABG pCO2 50 mmHg (35-45) H 08/04/16 08:09 ABG pO2 92 mmHg (85-104) 08/04/16 08:09 ABG HCO3 30.3 mEQ/L (21-27) H 08/04/16 08:09 ABG O2 Saturation 97 % (95-98) 08/04/16 08:09 Calcium 6.7 mg/dL (8.6-10.8) L 08/04/16 02:50 Phosphorus 5.8 mg/dL (2.3-4.7) H 08/04/16 03:00 Magnesium 1.7 mg/dL (1.6-2.6) 08/04/16 03:00 Consult Discharge Plan - Plan Referrals: Brittany Schofield MD [Primary Care Provider] -
[2016-08-04] MEDS: Lacri-Lube 3.5 GM TUBE BOTH EYES SCH ×2 (09:58→19:39)
[2016-08-04] MEDS: Chlorhexidine Rinse 15 ML MOUTHWASH MM SCH ×2 (10:15→19:38)
[2016-08-04] MEDS: Pantoprazole 40 MG VIAL IVPB SCH (10:15)
[2016-08-04] MEDS: Cefepime HCl 2,000 MG in D5% in Water (Mini-Bag+) 100 ML IVPB SCH ×2 (10:15→19:39)
[2016-08-04] MEDS: Albuterol 2.5 MG/3 ML NEBULIZER IH SCH ×3 (10:52→22:52)
[2016-08-04] MEDS ORDERED: Sodium Phosphate 30 MMOL in D5% in Water 100 ML IVPB PRN (10:59)
[2016-08-04] MEDS: Norepinephrine 4 MG in D5% in Water 250 ML IVC SCH (11:05)
[2016-08-04] MEDS: FentaNYL (PF) 1,000 MCG in 0.9 % Sodium Chloride 80 ML IVC SCH (13:11)
[2016-08-04] MEDS: Calcium Gluconate 1,000 MG in D5% in Water 100 ML IVPB PRN ×2 (13:23→22:03)
[2016-08-04] MEDS: Magnesium Sulfate 2 GM in D5% in Water 100 ML IVPB PRN ×2 (13:23→22:03)
[2016-08-04 19:52] LABS: Ionized Calcium 0.89 mmol/L (1.15-1.35)
[2016-08-04 19:55] LABS: Magnesium 1.8 mg/dL (1.6-2.6)
[2016-08-05] MEDS: Insulin LISPRO 300 UNITS/3 ML VIAL SQ SCH ×6 (00:11→19:36)
[2016-08-05] MEDS: Heparin 25,000 UNIT/500 ML D5W 25,000 UNIT/500 ML MLS IVC SCH (00:20)
[2016-08-05] MEDS: FentaNYL (PF) 1,000 MCG in 0.9 % Sodium Chloride 80 ML IVC SCH (01:30)
[2016-08-05 03:38] LABS: Basophils % 0.3 %; Eosinophils # 0.2 K/mcL (0.0-0.6); Eosinophils % 1.4 %; Hematocrit 41.5 % (35.3-44.9); Hemoglobin 12.7 g/dL (11.5-15.4); Immature Granulocytes % 1.4 % (0-4); Lymphocytes # 1.5 K/mcL (0.6-4.6); Lymphocytes % 12.1 %; Mean Corpuscular HGB Conc 30.6 g/dL (31.6-35.5); Mean Corpuscular Hemoglobin 26.8 pg (28.0-33.3); Mean Corpuscular Volume 87.7 fL (83.0-100.0); Mean Platelet Volume 9.9 fL (9.4-12.4); Monocytes # 0.7 K/mcL (0.0-1.3); Monocytes % 5.9 %; Neutrophils # 9.8 K/mcL (1.6-8.9); Platelet Count 119 K/mcL (140-400); Red Blood Count 4.73 M/mcL (3.82-4.97); Red Cell Distribution Width 18.5 % (11.5-14.5); Segmented Neutrophils % 78.9 %
[2016-08-05 03:41] LABS: Ionized Calcium 0.93 mmol/L (1.15-1.35)
[2016-08-05 03:45] LABS: Albumin/Globulin Ratio 0.5 (1.1-2.2); Globulin 3.8 g/dL (2.4-3.5); Potassium 3.4 mEq/L (3.5-4.5); Total Protein 5.7 g/dL (6.0-8.3)
[2016-08-05 03:46] LABS: Albumin 1.9 g/dL (3.5-5.0); Calcium 7.8 mg/dL (8.6-10.8)
[2016-08-05] MEDS: Albuterol 2.5 MG/3 ML NEBULIZER IH SCH ×4 (05:11→21:53)
[2016-08-05 05:19] LABS: ABG Base Excess 4.9 mEq/L (-2.0 to 3.0); ABG Glucose 132 mg/dL (60-95); ABG HCO3 31.8 mEQ/L (21-27); ABG Hematocrit 47 % (35-51); ABG Ionized Calcium 1.02 mmol/L (1.15-1.35); ABG Oxygen Saturation 95 % (95-98); ABG PCO2 55 mmHg (35-45); ABG PH 7.37 pH Units (7.32-7.45); ABG PO2 76 mmHg (85-104); ABG TCO2 33.5 mEq/L (20-26)
[2016-08-05 05:20] LABS: Blood Gas FiO2 50 %
--- NOTE | 2016-08-05 06:46 | Pulmonology Progress Note ---
<Myrtle Diaz - Last Filed: 08/05/16 10:22> Date of Encounter: 08/05/16 Time of Encounter: 06:35 Assessment and Plan (1) Acute respiratory failure with hypoxia Current Visit: Yes Status: Acute Related to COPD, Obesity hypoventilation and cor pulmonale and superimposed septic shock CXR yesterday demonstrates persistent enlargement of cardiac silhouette with prominence of pulmonary vasculature Currently on full ventilator support with FiO2 50% at 92% saturation, CPAP trial and possible extubation today Scheduled breathing treatments Hemodynamically stable and off pressor support (2) Septic shock Current Visit: Yes Status: Resolved Presumptive septic shock with multisystem organ failure Focus site of sepsis is uncertain at this time Currently on Cefepime for antibiotic coverage, day 5 of treatment All culture reports show no growth at this time, MRSA screen is negative WBC:12.5 today (16.6 yesterday) (3) Transaminitis Current Visit: Yes Status: Acute Initial elevated amylast levels as well as hyperbilirubinmia are likely due to shock liver. May also have pre-existing fatty liver Today AST: 95 (244 yesterday), ALT: 842 (1379 yesterday) (4) Acute renal failure Current Visit: No Status: Acute Due to hemodynamically mediated ATN secondary to septic shock Dr. Bernal consulted Discontinue CVVH yesterday Electrolyte protocol ordered Will continue to follow labs Qualifiers: Acute renal failure type: with acute tubular necrosis Qualified Code(s): N17.0 - Acute kidney failure with tubular necrosis (5) DVT prophylaxis Current Visit: Yes Status: Acute Currently on Heparin drip Venous doppler of BLE negative, will switch to Heparin SQ today Subjective Principal diagnosis: Acute respiratory failure with hypoxia and septic shock Interval history: Pt is intubated and sedated, but arousable Right IJ CVC, Left IJ dialysis catheter, Right femoral arterial line and Jones catheter in place. Fluid balance of -780 over last 24 hours (cumulative 1017) Objective PUL Vital signs: Last Vital Signs Temp 98.3 F 08/05/16 04:00 Pulse 80 08/05/16 06:00 Resp 26 08/05/16 06:12 BP 109/63 08/05/16 06:12 Pulse Ox 92 L 08/05/16 06:12 General appearance: other (intubated and sedated) Eyes: nonicteric ENT: oropharynx moist Neck: supple Effort: other (Ventilator) Auscultation: bilateral: rhonchi Cardiovascular: regular rate and rhythm Gastrointestinal: normoactive bowel sounds, other (obese) Extremities: pink and warm, other (Erythema and warmth on BLE, Right foot with three blisters on the dorsal aspect, Pulses diminished bilaterally) Musculoskeletal: no deformities Ventilator Settings Ventilator Settings: Ventilator Settings, Last 8 Hours Ventilator Mode VC+ Ventilator Mode VC+ Ventilator Mode VC+ Ventilator Mode VC+ Ventilator Mode VC+ Ventilator Mode VC+ Ventilator Mode VC+ Ventilator Mode VC+ Ventilator Mode VC+ Ventilator Mode VC+ Ventilator Mode VC+ Ventilator Mode VC+ Ventilator Mode VC+ Ventilator Mode VC+ Ventilator Tidal Volume 350 Setting Ventilator Tidal Volume 350 Setting Ventilator Tidal Volume 350 Setting Ventilator Tidal Volume 350 Setting Ventilator Tidal Volume 350 Setting Ventilator Tidal Volume 350 Setting Ventilator Tidal Volume 350 Setting Ventilator Tidal Volume 350 Setting Ventilator Tidal Volume 350 Setting Ventilator Tidal Volume 350 Setting Ventilator Tidal Volume 350 Setting Ventilator Tidal Volume 350 Setting Ventilator Tidal Volume 350 Setting Ventilator Tidal Volume 350 Setting Ventilator Respiratory Rate 26 Setting Ventilator Respiratory Rate 26 Setting Ventilator Respiratory Rate 26 Setting Ventilator Respiratory Rate 26 Setting Ventilator Respiratory Rate 26 Setting Ventilator Respiratory Rate 26 Setting Ventilator Respiratory Rate 26 Setting Ventilator Respiratory Rate 26 Setting Ventilator Respiratory Rate 26 Setting Ventilator Respiratory Rate 26 Setting Ventilator Respiratory Rate 26 Setting Ventilator Respiratory Rate 26 Setting Ventilator Respiratory Rate 26 Setting Ventilator Respiratory Rate 26 Setting Actual Respiratory Rate 26 Actual Respiratory Rate 26 Actual Respiratory Rate 26 Actual Respiratory Rate 26 Actual Respiratory Rate 26 Actual Respiratory Rate 28 Actual Respiratory Rate 28 Actual Respiratory Rate 26 Actual Respiratory Rate 27 Actual Respiratory Rate 27 Actual Respiratory Rate 26 Actual Respiratory Rate 26 Actual Respiratory Rate 26 Positive End Expiratory 12 Pressure Positive End Expiratory 12 Pressure Positive End Expiratory 12 Pressure Positive End Expiratory 12 Pressure Positive End Expiratory 12 Pressure Positive End Expiratory 12 Pressure Positive End Expiratory 12 Pressure Positive End Expiratory 12 Pressure Positive End Expiratory 12 Pressure Positive End Expiratory 12 Pressure Positive End Expiratory 12 Pressure Positive End Expiratory 12 Pressure Positive End Expiratory 12 Pressure Positive End Expiratory 12 Pressure Peak Inspiratory Airway 28 Pressure Peak Inspiratory Airway 28 Pressure Peak Inspiratory Airway 28 Pressure Peak Inspiratory Airway 27 Pressure Peak Inspiratory Airway 27 Pressure Peak Inspiratory Airway 27 Pressure Peak Inspiratory Airway 27 Pressure Peak Inspiratory Airway 26 Pressure Peak Inspiratory Airway 25 Pressure Peak Inspiratory Airway 27 Pressure Peak Inspiratory Airway 26 Pressure Peak Inspiratory Airway 26 Pressure Peak Inspiratory Airway 29 Pressure Results - Laboratory Findings CBC and BMP: 08/05/16 03:25 08/05/16 03:30 ABG ABG pH 7.37 pH Units (7.32-7.45) 08/05/16 05:08 ABG pCO2 55 mmHg (35-45) H 08/05/16 05:08 ABG pO2 76 mmHg (85-104) L 08/05/16 05:08 ABG O2 Saturation 95 % (95-98) 08/05/16 05:08 PT/INR, D-dimer PT 17.9 Seconds (9.4-12.1) H 08/03/16 03:45 Abnormal lab findings: Abnormal lab results WBC 12.5 K/mcL (4.3-11.1) H 08/05/16 03:25 MCH 26.8 pg (28.0-33.3) L 08/05/16 03:25 MCHC 30.6 g/dL (31.6-35.5) L 08/05/16 03:25 RDW 18.5 % (11.5-14.5) H 08/05/16 03:25 Plt Count 119 K/mcL (140-400) L 08/05/16 03:25 Band Neutrophils % 8.0 % (0-4) H 08/03/16 03:45 Neutrophils # 9.8 K/mcL (1.6-8.9) H 08/05/16 03:25 Nucleated RBCs/100 WBC 1.0 /100 WBC (0) H 08/05/16 03:25 Anisocytosis 1+ (Not Present) A 08/02/16 02:30 PT 17.9 Seconds (9.4-12.1) H 08/03/16 03:45 APTT 89.8 Seconds (26.0-36.0) H 08/05/16 03:30 ABG pCO2 55 mmHg (35-45) H 08/05/16 05:08 ABG pO2 76 mmHg (85-104) L 08/05/16 05:08 ABG HCO3 31.8 mEQ/L (21-27) H 08/05/16 05:08 ABG Total CO2 33.5 mEq/L (20-26) H 08/05/16 05:08 ABG Base Excess 4.9 mEq/L (-2.0 to 3.0) H 08/05/16 05:08 Sodium 131 mEq/L (135-148) L 08/05/16 05:08 Potassium 3.2 mEq/L (3.5-5.3) L 08/05/16 05:08 Glucose 132 mg/dL (60-95) H 08/05/16 05:08 Ionized Calcium 1.02 mmol/L (1.15-1.35) L 08/05/16 05:08 Sodium 134 mEq/L (136-145) L 08/05/16 03:30 Potassium 3.4 mEq/L (3.5-4.5) L 08/05/16 03:30 Chloride 96 mEq/L (98-109) L 08/05/16 03:30 BUN 50 mg/dL (7-20) H 08/05/16 03:30 Creatinine 2.38 mg/dL (0.57-1.11) H 08/05/16 03:30 Est GFR ( Amer) 27 (> 60) L 08/05/16 03:30 Est GFR (Non-Af Amer) 22 (> 60) L 08/05/16 03:30 Glucose 141 mg/dL (70-99) H 08/05/16 03:30 POC Glucose 156 (58-89) H 08/04/16 23:49 Calcium 7.8 mg/dL (8.6-10.8) L D 08/05/16 03:30 Ionized Calcium 0.93 mmol/L (1.15-1.35) L 08/05/16 03:25 Phosphorus 7.0 mg/dL (2.3-4.7) H 08/05/16 03:25 Total Bilirubin 2.0 mg/dL (0.2-1.2) H 08/05/16 03:30 AST 95 Units/L (5-34) H 08/05/16 03:30 ALT 842 Units/L (0-55) H 08/05/16 03:30 Alkaline Phosphatase 146 Units/L (38-126) H 08/05/16 03:30 Serum Total Protein 5.7 g/dL (6.0-8.3) L 08/05/16 03:30 Albumin 1.9 g/dL (3.5-5.0) L 08/05/16 03:30 Globulin 3.8 g/dL (2.4-3.5) H 08/05/16 03:30 Albumin/Globulin Ratio 0.5 (1.1-2.2) L 08/05/16 03:30 - Microbiology Findings Microbiology Findings: Microbiology, Last 48 Hours 08/01/16 13:53 Sputum Culture - Final Sputum 08/01/16 13:45 Blood Culture - Preliminary Peripheral Venipuncture No growth. - Clinical Findings Intake & Output: Intake & Output 08/04/16 08/04/16 08/05/16 15:59 23:59 07:59 Intake Total 899.1 / 899.1 587 / 587 904 / 904 Output Total 1150 / 1150 401 / 401 600 / 600 Balance -250.9 / -250.9 186 / 186 304 / 304 Weight 162.023 kg Consult Discharge Plan - Plan Referrals: Brittany Schofield MD [Primary Care Provider] - <Jen Breaux - Last Filed: 08/05/16 17:25> Objective PUL Vital signs: Last Vital Signs Temp 97.8 F 08/05/16 15:10 Pulse 98 08/05/16 16:11 Resp 22 08/05/16 16:19 BP 110/72 08/05/16 16:19 Pulse Ox 94 L 08/05/16 16:19 Ventilator Settings Ventilator Settings: Ventilator Settings, Last 8 Hours Ventilator Mode CPAP Ventilator Tidal Volume 500 Setting Actual Respiratory Rate 16 Positive End Expiratory 8 Pressure Peak Inspiratory Airway 14 Pressure Results - Laboratory Findings CBC and BMP: 08/05/16 03:25 08/05/16 13:17 ABG ABG pH 7.36 pH Units (7.32-7.45) 08/05/16 08:26 ABG pCO2 50 mmHg (35-45) H 08/05/16 08:26 ABG pO2 83 mmHg (85-104) L 08/05/16 08:26 ABG O2 Saturation 96 % (95-98) 08/05/16 08:26 PT/INR, D-dimer PT 17.9 Seconds (9.4-12.1) H 08/03/16 03:45 Abnormal lab findings: Abnormal lab results WBC 12.5 K/mcL (4.3-11.1) H 08/05/16 03:25 MCH 26.8 pg (28.0-33.3) L 08/05/16 03:25 MCHC 30.6 g/dL (31.6-35.5) L 08/05/16 03:25 RDW 18.5 % (11.5-14.5) H 08/05/16 03:25 Plt Count 119 K/mcL (140-400) L 08/05/16 03:25 Band Neutrophils % 8.0 % (0-4) H 08/03/16 03:45 Neutrophils # 9.8 K/mcL (1.6-8.9) H 08/05/16 03:25 Nucleated RBCs/100 WBC 1.0 /100 WBC (0) H 08/05/16 03:25 Anisocytosis 1+ (Not Present) A 08/02/16 02:30 PT 17.9 Seconds (9.4-12.1) H 08/03/16 03:45 APTT 89.8 Seconds (26.0-36.0) H 08/05/16 03:30 ABG pCO2 50 mmHg (35-45) H 08/05/16 08:26 ABG pO2 83 mmHg (85-104) L 08/05/16 08:26 ABG HCO3 28.2 mEQ/L (21-27) H 08/05/16 08:26 ABG Total CO2 29.7 mEq/L (20-26) H 08/05/16 08:26 Sodium 131 mEq/L (135-148) L 08/05/16 05:08 Potassium 3.2 mEq/L (3.5-5.3) L 08/05/16 05:08 Glucose 132 mg/dL (60-95) H 08/05/16 05:08 Ionized Calcium 1.02 mmol/L (1.15-1.35) L 08/05/16 05:08 Chloride 97 mEq/L (98-109) L 08/05/16 13:17 BUN 51 mg/dL (7-20) H 08/05/16 13:17 Creatinine 2.25 mg/dL (0.57-1.11) H 08/05/16 13:17 Est GFR ( Amer) 29 (> 60) L 08/05/16 13:17 Est GFR (Non-Af Amer) 24 (> 60) L 08/05/16 13:17 Glucose 171 mg/dL (70-99) H 08/05/16 13:17 POC Glucose 156 (58-89) H 08/04/16 23:49 Calculated Osmolality 304 (280-300) H 08/05/16 13:17 Calcium 8.3 mg/dL (8.6-10.8) L 08/05/16 13:17 Ionized Calcium 1.05 mmol/L (1.15-1.35) L 08/05/16 13:17 Phosphorus 7.4 mg/dL (2.3-4.7) H 08/05/16 13:17 Total Bilirubin 2.0 mg/dL (0.2-1.2) H 08/05/16 03:30 AST 95 Units/L (5-34) H 08/05/16 03:30 ALT 842 Units/L (0-55) H 08/05/16 03:30 Alkaline Phosphatase 146 Units/L (38-126) H 08/05/16 03:30 Serum Total Protein 5.7 g/dL (6.0-8.3) L 08/05/16 03:30 Albumin 1.9 g/dL (3.5-5.0) L 08/05/16 03:30 Globulin 3.8 g/dL (2.4-3.5) H 08/05/16 03:30 Albumin/Globulin Ratio 0.5 (1.1-2.2) L 08/05/16 03:30 - Clinical Findings Intake & Output: Intake & Output 08/05/16 08/05/16 08/05/16 07:59 15:59 23:59 Intake Total 904 / 904 720 / 720 Output Total 1000 / 1000 1150 / 1150 Balance -96 / -96 -430 / -430 Weight 162.023 kg - Attending Attestation I examined this patient and my medical decision-making was reviewed with the FIELD OPERATIONS FARM MANAGER/PA/Advanced Practice Nurse/Resident Physician. I agree with the documented findings, disposition and treatment plan as described except to the extent set forth below. Patient seen and examined. Labs, radiology, chart personally reviewed. Agree with resident's history and physical, assessment, plan with following comments: HUMAN RESOURCES TRAINING MANAGER: Patient follows commands, Pulmonary: Acceptable oxygenation and ventilation. Patient was on low tidal volume and lung protective strategies for ARDS however Her plateau pressure is 24 and liberated her from low tidal volume and then spontaneous breathing trial was done with pressure support with success and eventually patient was extubated successfully. Keep SPO2 around 92% Cardiovascular: stable GI: Nutrition per dietary and GI prophylaxis per routine Heme: DVT prophylaxis per routine Renal; urine out put and renal funtion reviewed. Appreciate nephrology's input keep volume status even to negative as much as possible. Endorcine: blood glucose is monitored Lines: all lines checked and no evidence of infections Skin: skin care to prevent pressure ulcers per nursing routine care I spent 35 min of Critical Care time with this patient. It involved decision making of high complexity to assess, manipulate, and support vital organ system failure and/or to prevent further life threatening deterioration of the patient' s condition. The time involved in the performance of separately reportable procedures was not counted toward critical care time.
[2016-08-05 08:43] LABS: ABG Base Excess 1.8 mEq/L (-2.0 to 3.0); ABG HCO3 28.2 mEQ/L (21-27); ABG Oxygen Saturation 96 % (95-98); ABG PCO2 50 mmHg (35-45); ABG PH 7.36 pH Units (7.32-7.45); ABG PO2 83 mmHg (85-104); ABG TCO2 29.7 mEq/L (20-26); Blood Gas FiO2 50 %
[2016-08-05] MEDS: Pantoprazole 40 MG VIAL IVPB SCH (09:24)
[2016-08-05] MEDS: Cefepime HCl 2,000 MG in D5% in Water (Mini-Bag+) 100 ML IVPB SCH ×2 (09:24→19:35)
[2016-08-05] MEDS: Chlorhexidine Rinse 15 ML MOUTHWASH MM SCH ×2 (09:24→19:34)
[2016-08-05] MEDS: Lacri-Lube 3.5 GM TUBE BOTH EYES SCH ×2 (09:25→19:21)
--- NOTE | 2016-08-05 10:46 | Venous Imaging Report ---
LE Venous Duplex Patient Name:Wendy Butler Order Number:[id number] Procedure Date:08/04/2016 Date:1975Age:40 yrs Gender:Female Location:[facility] Room #: IC3 Paperhanger Contractor:Caitlyn Mcneill RDCS Referring MD:Myrtle Garcias DO investment fund manager:None Reading MD:Keith Thakur MD Primary Indications:R/O DVT Secondary Indications: Impressions: Bilateral lower extremity: normal superficial and deep exam. Recommendations: Preliminary given to Pt RNRaya. Findings Venous Duplex Results: Right: Venous imaging of the lower extremity reveals full patency and normal vessel compressibility of the right distal iliac, right common femoral, right superficial femoral, right popliteal, right posterior tibial, right peroneal, right great saphenous and right lesser saphenous. Doppler signals in the evaluated veins were normal. The right distal iliac and right common femoral veins were not well visualized. Left: Venous imaging of the lower extremity reveals full patency and normal vessel compressibility of the left distal iliac, left common femoral, left superficial femoral, left popliteal, left posterior tibial, left peroneal, left great saphenous and left lesser saphenous. Doppler signals in the evaluated veins were normal. The left distal iliac and left common femoral veins were not well visualized. Prior Study: No prior study available for comparison. Lower Extremity Venous Duplex Side Vein Compress Spontaneous Flow Augment Diameter (cm) Depth (cm) Right Distal Iliac Normal Yes Phasic Yes Right Common Femoral Normal Yes Phasic Yes Right Superficial Femoral Normal Yes Phasic Yes Right Popliteal Normal Yes Phasic Yes Right Posterior Tibial Normal Yes Phasic Yes Right Peroneal Normal Yes Phasic Yes Right Great Saphenous Normal Yes Phasic Yes Right Lesser Saphenous Normal Yes Phasic Yes Left Distal Iliac Normal Yes Phasic Yes Left Common Femoral Normal Yes Phasic Yes Left Superficial Femoral Normal Yes Phasic Yes Left Popliteal Normal Yes Phasic Yes Left Posterior Tibial Normal Yes Phasic Yes Left Peroneal Normal Yes Phasic Yes Left Great Saphenous Normal Yes Phasic Yes Left Lesser Saphenous Normal Yes Phasic Yes Updated by Keith Thakur MD on 08/05/2016 10:39:42 AM electronically signed on 08/05/2016 10:39:56 AM with status of Final
--- NOTE | 2016-08-05 11:56 | Nephrology Progress Note ---
Date of Encounter: 08/05/16 Time of Encounter: 11:30 - Assessment and Plan (1) Acute renal failure Current Visit: No Status: Acute acute kidney injury in the setting of sepsis and respiratory failure and multisystem organ failure. Renal fct improving. Urine output good. No further need for HD. Okay to remove temporary catheter at your discretion with patient being on heparin. Will continue to follow. Qualifiers: Acute renal failure type: with acute tubular necrosis Qualified Code(s): N17.0 - Acute kidney failure with tubular necrosis Subjective Principal diagnosis: Acute respiratory failure with hypoxia and septic shock Interval history: Laying supine, states breathing well on room air. Objective - Vital Signs Vital signs: Vital Signs Temp Pulse Resp BP Pulse Ox 08/05/16 09:45 19 122/72 94 L 08/05/16 09:24 12 136/71 97 08/05/16 09:00 92 22 134/78 97 08/05/16 08:45 13 97 08/05/16 08:07 80 22 123/75 97 08/05/16 07:58 22 109/63 97 08/05/16 07:15 98.1 F 08/05/16 06:12 26 109/63 92 L 08/05/16 06:00 80 26 101/58 97 08/05/16 05:22 26 125/71 97 08/05/16 05:00 96 26 129/75 93 L 08/05/16 04:00 98.3 F 102 26 144/83 95 08/05/16 03:00 97 26 124/73 92 L 08/05/16 02:53 26 113/69 90 L 08/05/16 02:00 97 26 127/71 96 08/05/16 01:00 87 27 126/69 96 08/05/16 00:28 27 133/72 93 L 08/05/16 00:06 98.7 F 08/05/16 00:00 107 27 140/75 97 08/04/16 23:00 107 27 147/78 96 08/04/16 22:52 26 139/73 96 08/04/16 22:00 92 26 149/79 100 08/04/16 21:00 94 26 147/80 100 08/04/16 20:15 27 97 08/04/16 20:00 87 26 126/71 98 08/04/16 19:55 99 F 08/04/16 19:00 86 26 125/71 96 08/04/16 18:00 81 26 108/58 100 08/04/16 17:53 26 108/58 100 08/04/16 17:00 87 26 137/76 100 08/04/16 16:35 26 98 08/04/16 16:00 84 26 127/71 100 08/04/16 15:00 98.2 F 79 26 115/64 100 08/04/16 14:00 69 26 107/59 100 08/04/16 13:41 26 100 08/04/16 13:00 66 26 102/57 100 08/04/16 12:00 67 26 101/57 100 Intake and Output 08/04/16 08/05/16 08/05/16 23:59 07:59 15:59 Intake Total 587 / 587 904 / 904 620 / 620 Output Total 401 / 401 1000 / 1000 Balance 186 / 186 -96 / -96 620 / 620 Intake: IV Fluids 410 / 410 904 / 904 620 / 620 FentaNYL (PF) 1,000 MCG 100 / 100 40 / 40 In 0.9 % Sodium Chloride 80 ML @ 50 MCG/HR 5 mls/ hr IVC CONT [facility] Rx#: [id number] Heparin 25,000 UNIT/500 500 / 500 480 / 480 ML D5W 25,000 unit In 500 ml @ 14 UNIT/KG/HR 44.8 mls/hr IVC .[id number] [facility] Rx#:[id number] Diprivan 1,000 mg In 100 200 / 200 200 / 200 100 / 100 ml @ 5 MCG/KG/MIN 4.776 mls/hr IVC .[id number] [facility] Rx#:[id number] Calcium Gluconate 1,000 110 / 110 MG In Dextrose 5% 100 ML @ 50 mls/hr IVPB Q6HR PRN Rx#:[id number] Maxipime 2,000 MG In 100 / 100 Dextrose 5% (Minibag+) 100 ML 100 ML @ 200 mls/ hr IVPB Q12H [facility] Rx#: [id number] Magnesium Sulfate 2 GM In 104 / 104 Dextrose 5% 100 ML @ 50 mls/hr IVPB Q6H PRN Rx#: [id number] Tube Feeding 177 / 177 Free Water Intake Amount 0 / 0 0 / 0 0 / 0 Output: Catheter 401 / 401 1000 / 1000 Other: Weight 162.023 kg Blood Glucose* 132 122 Patient Weight 08/05/16 23:59 Weight 162.023 kg - General Appearance General appearance: Present: well-developed, well-nourished, appears started age , obese EENT: Present: mucous membranes moist Neck: Present: no JVD Respiratory: Present: clear Cardiology: Present: regular rate, regular rhythm Additional Comments: moderate LE/pedal edema with blisters on feet. Gastrointestinal: Present: hypoactive bowel sounds, obese Integumentary: Present: warm and dry Additional Comments: feet erythemic few toes mild cyanosis Neurologic: Present: alert and oriented x3 Psychiatric: Present: mood/affect appropriate, cooperative - Lab 08/05/16 03:25 08/05/16 03:30 Most recent lab results ABG pH 7.36 pH Units (7.32-7.45) 08/05/16 08:26 ABG pCO2 50 mmHg (35-45) H 08/05/16 08:26 ABG pO2 83 mmHg (85-104) L 08/05/16 08:26 ABG HCO3 28.2 mEQ/L (21-27) H 08/05/16 08:26 ABG O2 Saturation 96 % (95-98) 08/05/16 08:26 Calcium 7.8 mg/dL (8.6-10.8) L D 08/05/16 03:30 Phosphorus 7.0 mg/dL (2.3-4.7) H 08/05/16 03:25 Magnesium 2.0 mg/dL (1.6-2.6) 08/05/16 03:25 Consult Discharge Plan - Plan Referrals: Brittany Schofield MD [Primary Care Provider] -
[2016-08-05 13:28] LABS: Ionized Calcium 1.05 mmol/L (1.15-1.35)
[2016-08-05 13:36] LABS: Calcium 8.3 mg/dL (8.6-10.8); Magnesium 1.9 mg/dL (1.6-2.6); Phosphorous 7.4 mg/dL (2.3-4.7); Potassium 3.6 mEq/L (3.5-4.5)
[2016-08-05] MEDS: Norepinephrine 4 MG in D5% in Water 250 ML IVC SCH (13:55)
[2016-08-05] MEDS: *HR* HYDROmorphone (PF) 1 MG/ML SYRINGE IVP PRN ×2 (14:55→21:00)
[2016-08-05] MEDS: *HR* Heparin 5,000 UNIT/ML VIAL SQ SCH ×2 (15:08→21:04)
[2016-08-05] MEDS: Calcium Gluconate 1,000 MG in D5% in Water 100 ML IVPB PRN (15:08)
[2016-08-05] MEDS ORDERED: Chloraseptic Spray 177 ML BOTTLE MM PRN (15:40)
[2016-08-05] MEDS ORDERED: Racepinephrine Neb 0.5 ML VIAL IH PRN (16:27)
[2016-08-06] MEDS: *HR* HYDROmorphone (PF) 1 MG/ML SYRINGE IVP PRN ×4 (03:14→22:33)
[2016-08-06] MEDS: FentaNYL (PF) 1,000 MCG in 0.9 % Sodium Chloride 80 ML IVC SCH (03:35)
[2016-08-06 03:42] LABS: Basophils % 0.3 %; Eosinophils # 0.1 K/mcL (0.0-0.6); Hematocrit 42.7 % (35.3-44.9); Hemoglobin 12.5 g/dL (11.5-15.4); Immature Granulocytes % 1.3 % (0-4); Immature Platelets 3.7 % (1.1-6.1); Lymphocytes % 7.9 %; Mean Corpuscular HGB Conc 29.3 g/dL (31.6-35.5); Mean Corpuscular Hemoglobin 26.7 pg (28.0-33.3); Mean Platelet Volume 10.7 fL (9.4-12.4); Monocytes % 8.5 %; Neutrophils # 9.7 K/mcL (1.6-8.9); Nucleated Red Blood Cells 0.5 /100 WBC (0); Platelet Count 104 K/mcL (140-400); Red Blood Count 4.69 M/mcL (3.82-4.97); Red Cell Distribution Width 18.5 % (11.5-14.5)
[2016-08-06 03:53] LABS: Magnesium 1.8 mg/dL (1.6-2.6); Phosphorous 6.5 mg/dL (2.3-4.7)
[2016-08-06] MEDS: Albuterol 2.5 MG/3 ML NEBULIZER IH SCH ×4 (03:54→21:20)
[2016-08-06 03:55] LABS: Albumin 2.2 g/dL (3.5-5.0); Albumin/Globulin Ratio 0.5 (1.1-2.2); Bilirubin,Total 2.8 mg/dL (0.2-1.2); Calcium 8.9 mg/dL (8.6-10.8); Globulin 4.2 g/dL (2.4-3.5); Potassium 3.9 mEq/L (3.5-4.5); Total Protein 6.4 g/dL (6.0-8.3)
[2016-08-06 03:57] LABS: Anisocytosis 1+ (Not Present); Microcytosis Present (Not Present); Platelet Estimate Slight Decrease (Normal); Polychromasia 1+ (Not Present)
[2016-08-06 04:01] LABS: Ionized Calcium 1.09 mmol/L (1.15-1.35)
[2016-08-06] MEDS: Insulin LISPRO 300 UNITS/3 ML VIAL SQ SCH ×6 (04:55→20:32)
--- NOTE | 2016-08-06 06:48 | Pulmonology Progress Note ---
<Myrtle Diaz - Last Filed: 08/06/16 07:54> Date of Encounter: 08/06/16 Time of Encounter: 06:30 Assessment and Plan (1) Acute respiratory failure with hypoxia Current Visit: Yes Status: Acute Related to COPD, Obesity hypoventilation and cor pulmonale and superimposed septic shock CXR yesterday demonstrates persistent enlargement of cardiac silhouette with prominence of pulmonary vasculature Extubated yesterday, 8L high flow at 94% Scheduled breathing treatments Hemodynamically stable and off pressor support (2) Septic shock Current Visit: Yes Status: Resolved Presumptive septic shock with multisystem organ failure Focus site of sepsis is uncertain at this time Currently on Cefepime for antibiotic coverage, day 6 of treatment All culture reports show no growth at this time, MRSA screen is negative WBC:12.0 today (12.5 yesterday) (3) Transaminitis Current Visit: Yes Status: Acute Initial elevated amylase levels as well as hyperbilirubinemia are likely due to shock liver. May also have pre-existing fatty liver Today AST: 71 (95 yesterday), ALT: 641 (842 yesterday) (4) Acute renal failure Current Visit: No Status: Acute Due to hemodynamically mediated ATN secondary to septic shock Dr. Bernal consulted Creatinine 1.94 today (2.25 yesterday) Dialysis catheter to be removed this morning Will continue to follow labs Qualifiers: Acute renal failure type: with acute tubular necrosis Qualified Code(s): N17.0 - Acute kidney failure with tubular necrosis (5) DVT prophylaxis Current Visit: Yes Status: Acute Heparin SQ Subjective Principal diagnosis: Acute respiratory failure with hypoxia and septic shock Interval history: Pt was extubated yesterday and has been doing well since. She has been tolerating ice chips over night. Right femoral artery was removed yesterday. Right IJ CVC, Left IJ dialysis catheter, and Jones catheter in place. Fluid balance of -1716 over last 24 hours. Objective PUL Vital signs: Last Vital Signs Temp 97.0 F L 08/06/16 04:00 Pulse 92 08/06/16 06:00 Resp 12 08/06/16 06:00 BP 122/73 08/06/16 06:00 Pulse Ox 94 L 08/06/16 06:00 General appearance: no acute distress Eyes: nonicteric ENT: oropharynx moist Neck: supple Effort: normal Auscultation: bilateral: rhonchi (Improved since yesterday) Cardiovascular: regular rate and rhythm Gastrointestinal: normoactive bowel sounds, soft, non-tender, other (obese) Extremities: edema (BLE with edema; Three blisters present on dorsal aspect of right foot; Erythema and warmth of BLE, worse on right) Musculoskeletal: no deformities normal mental status, non-focal exam mood appropriate, affect normal Results - Laboratory Findings CBC and BMP: 08/06/16 03:30 08/06/16 03:30 ABG ABG pH 7.36 pH Units (7.32-7.45) 08/05/16 08:26 ABG pCO2 50 mmHg (35-45) H 08/05/16 08:26 ABG pO2 83 mmHg (85-104) L 08/05/16 08:26 ABG O2 Saturation 96 % (95-98) 08/05/16 08:26 PT/INR, D-dimer PT 17.9 Seconds (9.4-12.1) H 08/03/16 03:45 Abnormal lab findings: Abnormal lab results WBC 12.0 K/mcL (4.3-11.1) H 08/06/16 03:30 MCH 26.7 pg (28.0-33.3) L 08/06/16 03:30 MCHC 29.3 g/dL (31.6-35.5) L 08/06/16 03:30 RDW 18.5 % (11.5-14.5) H 08/06/16 03:30 Plt Count 104 K/mcL (140-400) L 08/06/16 03:30 Band Neutrophils % 8.0 % (0-4) H 08/03/16 03:45 Neutrophils # 9.7 K/mcL (1.6-8.9) H 08/06/16 03:30 Nucleated RBCs/100 WBC 0.5 /100 WBC (0) H 08/06/16 03:30 Platelet Estimate Slight Decrease (Normal) L 08/06/16 03:30 Polychromasia 1+ (Not Present) A 08/06/16 03:30 Anisocytosis 1+ (Not Present) A 08/06/16 03:30 Microcytosis Present (Not Present) A 08/06/16 03:30 PT 17.9 Seconds (9.4-12.1) H 08/03/16 03:45 APTT 89.8 Seconds (26.0-36.0) H 08/05/16 03:30 ABG pCO2 50 mmHg (35-45) H 08/05/16 08:26 ABG pO2 83 mmHg (85-104) L 08/05/16 08:26 ABG HCO3 28.2 mEQ/L (21-27) H 08/05/16 08:26 ABG Total CO2 29.7 mEq/L (20-26) H 08/05/16 08:26 Sodium 131 mEq/L (135-148) L 08/05/16 05:08 Potassium 3.2 mEq/L (3.5-5.3) L 08/05/16 05:08 Glucose 132 mg/dL (60-95) H 08/05/16 05:08 Ionized Calcium 1.02 mmol/L (1.15-1.35) L 08/05/16 05:08 BUN 49 mg/dL (7-20) H 08/06/16 03:30 Creatinine 1.94 mg/dL (0.57-1.11) H 08/06/16 03:30 Est GFR ( Amer) 34 (> 60) L 08/06/16 03:30 Est GFR (Non-Af Amer) 28 (> 60) L 08/06/16 03:30 Glucose 113 mg/dL (70-99) H 08/06/16 03:30 POC Glucose 116 (58-89) H 08/05/16 23:27 Calculated Osmolality 304 (280-300) H 08/06/16 03:30 Ionized Calcium 1.09 mmol/L (1.15-1.35) L 08/06/16 03:30 Phosphorus 6.5 mg/dL (2.3-4.7) H 08/06/16 03:30 Total Bilirubin 2.8 mg/dL (0.2-1.2) H 08/06/16 03:30 AST 71 Units/L (5-34) H 08/06/16 03:30 ALT 641 Units/L (0-55) H 08/06/16 03:30 Alkaline Phosphatase 148 Units/L (38-126) H 08/06/16 03:30 Albumin 2.2 g/dL (3.5-5.0) L 08/06/16 03:30 Globulin 4.2 g/dL (2.4-3.5) H 08/06/16 03:30 Albumin/Globulin Ratio 0.5 (1.1-2.2) L 08/06/16 03:30 - Clinical Findings Intake & Output: Intake & Output 08/05/16 08/05/16 08/06/16 15:59 23:59 07:59 Intake Total 720 / 720 210 / 210 400 / 400 Output Total 1150 / 1150 700 / 700 1100 / 1100 Balance -430 / -430 -490 / -490 -700 / -700 Weight 160.209 kg Consult Discharge Plan - Plan Referrals: Brittany Schfoield MD [Primary Care Provider] - <Jen Breaux - Last Filed: 08/06/16 09:54> Objective PUL Vital signs: Last Vital Signs Temp 97.4 F L 08/06/16 07:51 Pulse 108 08/06/16 08:00 Resp 20 08/06/16 09:48 BP 134/70 08/06/16 08:00 Pulse Ox 93 L 08/06/16 09:48 Results - Laboratory Findings CBC and BMP: 08/06/16 03:30 08/06/16 03:30 ABG ABG pH 7.36 pH Units (7.32-7.45) 08/05/16 08:26 ABG pCO2 50 mmHg (35-45) H 08/05/16 08:26 ABG pO2 83 mmHg (85-104) L 08/05/16 08:26 ABG O2 Saturation 96 % (95-98) 08/05/16 08:26 PT/INR, D-dimer PT 17.9 Seconds (9.4-12.1) H 08/03/16 03:45 Abnormal lab findings: Abnormal lab results WBC 12.0 K/mcL (4.3-11.1) H 08/06/16 03:30 MCH 26.7 pg (28.0-33.3) L 08/06/16 03:30 MCHC 29.3 g/dL (31.6-35.5) L 08/06/16 03:30 RDW 18.5 % (11.5-14.5) H 08/06/16 03:30 Plt Count 104 K/mcL (140-400) L 08/06/16 03:30 Band Neutrophils % 8.0 % (0-4) H 08/03/16 03:45 Neutrophils # 9.7 K/mcL (1.6-8.9) H 08/06/16 03:30 Nucleated RBCs/100 WBC 0.5 /100 WBC (0) H 08/06/16 03:30 Platelet Estimate Slight Decrease (Normal) L 08/06/16 03:30 Polychromasia 1+ (Not Present) A 08/06/16 03:30 Anisocytosis 1+ (Not Present) A 08/06/16 03:30 Microcytosis Present (Not Present) A 08/06/16 03:30 PT 17.9 Seconds (9.4-12.1) H 08/03/16 03:45 APTT 89.8 Seconds (26.0-36.0) H 08/05/16 03:30 ABG pCO2 50 mmHg (35-45) H 08/05/16 08:26 ABG pO2 83 mmHg (85-104) L 08/05/16 08:26 ABG HCO3 28.2 mEQ/L (21-27) H 08/05/16 08:26 ABG Total CO2 29.7 mEq/L (20-26) H 08/05/16 08:26 Sodium 131 mEq/L (135-148) L 08/05/16 05:08 Potassium 3.2 mEq/L (3.5-5.3) L 08/05/16 05:08 Glucose 132 mg/dL (60-95) H 08/05/16 05:08 Ionized Calcium 1.02 mmol/L (1.15-1.35) L 08/05/16 05:08 BUN 49 mg/dL (7-20) H 08/06/16 03:30 Creatinine 1.94 mg/dL (0.57-1.11) H 08/06/16 03:30 Est GFR ( Amer) 34 (> 60) L 08/06/16 03:30 Est GFR (Non-Af Amer) 28 (> 60) L 08/06/16 03:30 Glucose 113 mg/dL (70-99) H 08/06/16 03:30 POC Glucose 116 (58-89) H 08/05/16 23:27 Calculated Osmolality 304 (280-300) H 08/06/16 03:30 Ionized Calcium 1.09 mmol/L (1.15-1.35) L 08/06/16 03:30 Phosphorus 6.5 mg/dL (2.3-4.7) H 08/06/16 03:30 Total Bilirubin 2.8 mg/dL (0.2-1.2) H 08/06/16 03:30 AST 71 Units/L (5-34) H 08/06/16 03:30 ALT 641 Units/L (0-55) H 08/06/16 03:30 Alkaline Phosphatase 148 Units/L (38-126) H 08/06/16 03:30 Albumin 2.2 g/dL (3.5-5.0) L 08/06/16 03:30 Globulin 4.2 g/dL (2.4-3.5) H 08/06/16 03:30 Albumin/Globulin Ratio 0.5 (1.1-2.2) L 08/06/16 03:30 - Clinical Findings Intake & Output: Intake & Output 08/05/16 08/06/16 08/06/16 23:59 07:59 15:59 Intake Total 210 / 210 400 / 400 Output Total 700 / 700 1550 / 1550 Balance -490 / -490 -1150 / -1150 Weight 160.209 kg - Attending Attestation I examined this patient and my medical decision-making was reviewed with the PATTERN VAULT CLERK/PA/Advanced Practice Nurse/Resident Physician. I agree with the documented findings, disposition and treatment plan as described except to the extent set forth below. Patient seen and examined. Labs, radiology, chart personally reviewed. Agree with resident's history and physical, assessment, plan with following comments: LIQUOR GALLERY OPERATOR: Patient follows commands, Pulmonary: Acceptable oxygenation and ventilation continue IS Cardiovascular: stable GI: Nutrition per dietary and GI prophylaxis per routine Heme: DVT prophylaxis per routine ID: Continue antibiotics and plan to de-escalation Renal; urine out put and renal funtion reviewed. If no further plans for HD per linting machine operator, that can be removed. Endorcine: blood glucose is monitored Lines: all lines checked and no evidence of infections Skin: skin care to prevent pressure ulcers per nursing routine care Overall patient is doing better and can be transferred to [facility]
[2016-08-06] MEDS: *HR* Heparin 5,000 UNIT/ML VIAL SQ SCH ×3 (07:41→22:32)
[2016-08-06] MEDS: Lacri-Lube 3.5 GM TUBE BOTH EYES SCH (08:24)
[2016-08-06] MEDS: Chlorhexidine Rinse 15 ML MOUTHWASH MM SCH (08:24)
[2016-08-06] MEDS: Cefepime HCl 2,000 MG in D5% in Water (Mini-Bag+) 100 ML IVPB SCH (08:27)
[2016-08-06] MEDS: Pantoprazole 40 MG VIAL IVPB SCH (08:27)
--- NOTE | 2016-08-06 09:33 | Nephrology Progress Note ---
Date of Encounter: 08/06/16 Time of Encounter: 09:15 - Assessment and Plan (1) Acute renal failure Current Visit: No Status: Acute Acute kidney injury in the setting of sepsis and respiratory failure and multisystem organ failure. Renal fct improving. Urine output excellent. Will continue to follow. Qualifiers: Acute renal failure type: with acute tubular necrosis Qualified Code(s): N17.0 - Acute kidney failure with tubular necrosis Subjective Principal diagnosis: Acute respiratory failure with hypoxia and septic shock Interval history: Laying supine, states feeling much better. Temp catheter being dc'd. Objective - Vital Signs Vital signs: Vital Signs Temp Pulse Resp BP Pulse Ox 08/06/16 08:00 108 20 134/70 93 L 08/06/16 07:51 97.4 F L 08/06/16 07:47 101 08/06/16 07:00 101 20 135/86 96 08/06/16 06:00 92 12 122/73 94 L 08/06/16 05:00 93 12 114/61 94 L 08/06/16 04:00 97.0 F L 92 14 142/79 94 L 08/06/16 03:55 18 94 L 08/06/16 03:00 90 16 150/96 96 08/06/16 02:00 96 20 138/80 94 L 08/06/16 01:00 97 12 139/83 93 L 08/06/16 00:00 97.5 F L 94 14 129/73 94 L 08/05/16 23:00 93 18 148/80 96 08/05/16 22:00 93 14 141/75 94 L 08/05/16 21:53 14 91 L 08/05/16 21:00 89 14 128/69 94 L 08/05/16 20:00 94 20 140/86 95 08/05/16 19:25 98 F 08/05/16 19:00 91 18 125/82 96 08/05/16 18:00 87 22 135/77 94 L 08/05/16 17:00 87 22 125/77 94 L 08/05/16 16:19 22 110/72 94 L 08/05/16 16:11 94 22 110/72 94 L 08/05/16 15:34 22 146/81 93 L 08/05/16 15:10 97.8 F 08/05/16 15:00 106 22 128/78 93 L 08/05/16 14:00 96 22 146/81 93 L 08/05/16 13:00 113 19 99/59 94 L 08/05/16 12:00 92 19 126/86 94 L 08/05/16 11:00 97.7 F 08/05/16 09:45 19 122/72 94 L Intake and Output 08/05/16 08/06/16 08/06/16 23:59 07:59 15:59 Intake Total 210 / 210 400 / 400 Output Total 700 / 700 1550 / 1550 Balance -490 / -490 -1150 / -1150 Intake: IV Fluids 210 / 210 Calcium Gluconate 1,000 110 / 110 MG In Dextrose 5% 100 ML @ 50 mls/hr IVPB Q6HR PRN Rx#:[id number] Maxipime 2,000 MG In 100 / 100 Dextrose 5% (Minibag+) 100 ML 100 ML @ 200 mls/ hr IVPB Q12H [facility] Rx#: [id number] Oral 400 / 400 Output: Urine 500 / 500 Urethral (Jones) 500 / 500 Catheter 700 / 700 1050 / 1050 Other: Weight 160.209 kg Blood Glucose* 112 106 Patient Weight 08/06/16 23:59 Weight 160.209 kg - General Appearance General appearance: Present: well-developed, well-nourished, appears started age , obese EENT: Present: mucous membranes moist Neck: Present: no JVD Respiratory: Present: course breath sounds Cardiology: Present: edema, regular rate, regular rhythm Additional Comments: edema somewhat improved, continues to have pedal blistering and few dusky toes. Gastrointestinal: Present: normoactive bowel sounds, no tenderness, obese Integumentary: Present: warm and dry Neurologic: Present: alert and oriented x3 Psychiatric: Present: mood/affect appropriate, cooperative - Lab 08/06/16 03:30 08/06/16 03:30 Most recent lab results ABG pH 7.36 pH Units (7.32-7.45) 08/05/16 08:26 ABG pCO2 50 mmHg (35-45) H 08/05/16 08:26 ABG pO2 83 mmHg (85-104) L 08/05/16 08:26 ABG HCO3 28.2 mEQ/L (21-27) H 08/05/16 08:26 ABG O2 Saturation 96 % (95-98) 08/05/16 08:26 Calcium 8.9 mg/dL (8.6-10.8) 08/06/16 03:30 Phosphorus 6.5 mg/dL (2.3-4.7) H 08/06/16 03:30 Magnesium 1.8 mg/dL (1.6-2.6) 08/06/16 03:30 Consult Discharge Plan - Plan Referrals: Brittany Schofield MD [Primary Care Provider] -
[2016-08-06] MEDS ORDERED: *HR* Alteplase (Cathflo) 2 MG VIAL IVP PRN (11:08)
[2016-08-06] MEDS ORDERED: 0.9 % Sodium Chloride 1,000 ML PRIME SCH (11:08)
[2016-08-06] MEDS ORDERED: Acetaminophen 325 MG TABLET PO PRN (11:08)
[2016-08-06] MEDS ORDERED: Naloxone 0.4 MG/ML INJ IVP PRN (11:08)
[2016-08-06] MEDS ORDERED: Chloraseptic Spray 177 ML BOTTLE MM PRN (11:08)
[2016-08-06] MEDS ORDERED: D5% in Water 1,000 ML IV PRN (11:08)
[2016-08-06] MEDS ORDERED: Racepinephrine Neb 0.5 ML VIAL IH PRN (11:08)
[2016-08-06] MEDS ORDERED: 0.9 % Sodium Chloride 250 ML IV PRN (11:08)
[2016-08-06] MEDS ORDERED: *HR* Dextrose 50 % in Water (Syg) 50 ML SYRINGE IVP PRN (11:08)
[2016-08-06] MEDS ORDERED: Dextrose Gel 15 GM PO PRN ×2 (11:08)
[2016-08-06] MEDS: *HR* OxyCODONE Immed Rel 5 MG TABLET PO PRN ×2 (14:15→20:22)
[2016-08-06] MEDS ORDERED: Cefepime HCl 2,000 MG in D5% in Water (Mini-Bag+) 100 ML IVPB SCH (21:00)
[2016-08-07] MEDS: *HR* OxyCODONE Immed Rel 5 MG TABLET PO PRN ×2 (02:08→16:19)
[2016-08-07] MEDS: Albuterol 2.5 MG/3 ML NEBULIZER IH SCH ×4 (03:51→22:54)
[2016-08-07] MEDS: *HR* HYDROmorphone (PF) 1 MG/ML SYRINGE IVP PRN (04:10)
[2016-08-07 04:13] LABS: Basophils % 0.2 %; Eosinophils # 0.2 K/mcL (0.0-0.6); Eosinophils % 1.7 %; Hemoglobin 12.6 g/dL (11.5-15.4); Immature Granulocytes % 1.1 % (0-4); Lymphocytes # 1.1 K/mcL (0.6-4.6); Lymphocytes % 8.2 %; Mean Corpuscular HGB Conc 29.3 g/dL (31.6-35.5); Mean Corpuscular Volume 92.1 fL (83.0-100.0); Mean Platelet Volume 10.2 fL (9.4-12.4); Monocytes # 1.2 K/mcL (0.0-1.3); Monocytes % 8.8 %; Neutrophils # 11.1 K/mcL (1.6-8.9); Nucleated Red Blood Cells 0.2 /100 WBC (0); Platelet Count 115 K/mcL (140-400); Red Blood Count 4.67 M/mcL (3.82-4.97); Red Cell Distribution Width 18.1 % (11.5-14.5)
[2016-08-07 04:23] LABS: Calcium 8.9 mg/dL (8.6-10.8)
[2016-08-07] MEDS ORDERED: Insulin LISPRO 300 UNITS/3 ML VIAL SQ SCH (07:30)
[2016-08-07] MEDS ORDERED: *HR* Dextrose 50 % in Water (Syg) 50 ML SYRINGE IVP PRN (08:51)
[2016-08-07] MEDS ORDERED: 0.9 % Sodium Chloride 1,000 ML PRIME SCH (08:51)
[2016-08-07] MEDS ORDERED: Dextrose Gel 15 GM PO PRN ×2 (08:51)
[2016-08-07] MEDS ORDERED: Chloraseptic Spray 177 ML BOTTLE MM PRN (08:51)
[2016-08-07] MEDS ORDERED: *HR* Alteplase (Cathflo) 2 MG VIAL IVP PRN (08:51)
[2016-08-07] MEDS ORDERED: Racepinephrine Neb 0.5 ML VIAL IH PRN (08:51)
[2016-08-07] MEDS ORDERED: D5% in Water 1,000 ML IV PRN (08:51)
[2016-08-07] MEDS ORDERED: Acetaminophen 325 MG TABLET PO PRN (08:51)
[2016-08-07] MEDS ORDERED: 0.9 % Sodium Chloride 250 ML IV PRN (08:51)
[2016-08-07] MEDS ORDERED: Naloxone 0.4 MG/ML INJ IVP PRN (08:51)
--- NOTE | 2016-08-07 08:51 | Pulmonology Progress Note ---
<Myrtle Diaz - Last Filed: 08/07/16 08:46> Date of Encounter: 08/07/16 Time of Encounter: 07:15 Assessment and Plan (1) Acute respiratory failure with hypoxia Current Visit: Yes Status: Acute Related to COPD, Obesity hypoventilation and cor pulmonale and superimposed septic shock Resting comfortably on 8L high flow NC Scheduled breathing treatments Hemodynamically stable and off pressor support (2) Septic shock Current Visit: Yes Status: Resolved Presumptive septic shock with multisystem organ failure Focus site of sepsis is uncertain at this time Currently on Cefepime for antibiotic coverage, day 7 of treatment All culture reports show no growth at this time, MRSA screen is negative WBC:13.8 today (3) Transaminitis Current Visit: Yes Status: Acute Initial elevated amylase levels as well as hyperbilirubinemia are likely due to shock liver. May also have pre-existing fatty liver AST and ALT have been trending down (4) Acute renal failure Current Visit: No Status: Acute Due to hemodynamically mediated ATN secondary to septic shock Dr. Bernal consulted Creatinine 1.54 today (1.94 yesterday) Dialysis catheter removed yesterday Will continue to follow labs Qualifiers: Acute renal failure type: with acute tubular necrosis Qualified Code(s): N17.0 - Acute kidney failure with tubular necrosis (5) DVT prophylaxis Current Visit: Yes Status: Acute Heparin SQ Subjective Principal diagnosis: Acute respiratory failure with hypoxia and septic shock Interval history: Pt is resting comfortably in bed. She is tolerating a diabetic diet. Right IJ CVC and figueroa in place. PT/OT ordered. Left IJ dialysis removed yesterday. Objective PUL Vital signs: Last Vital Signs Temp 98.2 F 08/07/16 07:15 Pulse 90 08/07/16 03:50 Resp 18 08/07/16 03:52 BP 135/72 08/07/16 03:50 Pulse Ox 97 08/07/16 03:52 General appearance: no acute distress Eyes: nonicteric ENT: oropharynx moist Neck: supple Auscultation: bilateral: clear Cardiovascular: regular rate and rhythm Gastrointestinal: normoactive bowel sounds, non-tender, other (obese) Extremities: pink and warm, edema, other (Three blisters on dorsal aspect of right foot. ) Musculoskeletal: no deformities normal mental status, non-focal exam Results - Laboratory Findings CBC and BMP: 08/07/16 04:00 08/07/16 04:00 ABG ABG pH 7.36 pH Units (7.32-7.45) 08/05/16 08:26 ABG pCO2 50 mmHg (35-45) H 08/05/16 08:26 ABG pO2 83 mmHg (85-104) L 08/05/16 08:26 ABG O2 Saturation 96 % (95-98) 08/05/16 08:26 PT/INR, D-dimer PT 17.9 Seconds (9.4-12.1) H 08/03/16 03:45 Abnormal lab findings: Abnormal lab results WBC 13.8 K/mcL (4.3-11.1) H 08/07/16 04:00 MCH 27.0 pg (28.0-33.3) L 08/07/16 04:00 MCHC 29.3 g/dL (31.6-35.5) L 08/07/16 04:00 RDW 18.1 % (11.5-14.5) H 08/07/16 04:00 Plt Count 115 K/mcL (140-400) L 08/07/16 04:00 Band Neutrophils % 8.0 % (0-4) H 08/03/16 03:45 Neutrophils # 11.1 K/mcL (1.6-8.9) H 08/07/16 04:00 Nucleated RBCs/100 WBC 0.2 /100 WBC (0) H 08/07/16 04:00 Platelet Estimate Slight Decrease (Normal) L 08/06/16 03:30 Polychromasia 1+ (Not Present) A 08/06/16 03:30 Anisocytosis 1+ (Not Present) A 08/06/16 03:30 Microcytosis Present (Not Present) A 08/06/16 03:30 PT 17.9 Seconds (9.4-12.1) H 08/03/16 03:45 APTT 89.8 Seconds (26.0-36.0) H 08/05/16 03:30 ABG pCO2 50 mmHg (35-45) H 08/05/16 08:26 ABG pO2 83 mmHg (85-104) L 08/05/16 08:26 ABG HCO3 28.2 mEQ/L (21-27) H 08/05/16 08:26 ABG Total CO2 29.7 mEq/L (20-26) H 08/05/16 08:26 Sodium 131 mEq/L (135-148) L 08/05/16 05:08 Potassium 3.2 mEq/L (3.5-5.3) L 08/05/16 05:08 Glucose 132 mg/dL (60-95) H 08/05/16 05:08 Ionized Calcium 1.02 mmol/L (1.15-1.35) L 08/05/16 05:08 BUN 49 mg/dL (7-20) H 08/07/16 04:00 Creatinine 1.54 mg/dL (0.57-1.11) H 08/07/16 04:00 Est GFR ( Amer) 45 (> 60) L 08/07/16 04:00 Est GFR (Non-Af Amer) 37 (> 60) L 08/07/16 04:00 BUN/Creatinine Ratio 32 (6-26) H 08/07/16 04:00 Glucose 184 mg/dL (70-99) H 08/07/16 04:00 POC Glucose 182 (58-89) H 08/06/16 19:19 Calculated Osmolality 304 (280-300) H 08/07/16 04:00 Ionized Calcium 1.09 mmol/L (1.15-1.35) L 08/06/16 03:30 Phosphorus 6.5 mg/dL (2.3-4.7) H 08/06/16 03:30 Total Bilirubin 2.8 mg/dL (0.2-1.2) H 08/06/16 03:30 AST 71 Units/L (5-34) H 08/06/16 03:30 ALT 641 Units/L (0-55) H 08/06/16 03:30 Alkaline Phosphatase 148 Units/L (38-126) H 08/06/16 03:30 Albumin 2.2 g/dL (3.5-5.0) L 08/06/16 03:30 Globulin 4.2 g/dL (2.4-3.5) H 08/06/16 03:30 Albumin/Globulin Ratio 0.5 (1.1-2.2) L 08/06/16 03:30 - Microbiology Findings Microbiology Findings: Microbiology, Last 48 Hours 08/01/16 13:45 Blood Culture - Final Peripheral Venipuncture No growth. - Clinical Findings Intake & Output: Intake & Output 08/06/16 08/07/16 08/07/16 23:59 07:59 15:59 Intake Total 200 / 200 100 / 100 Output Total 950 / 950 900 / 900 Balance -750 / -750 -800 / -800 Weight 158.304 kg Consult Discharge Plan - Plan Referrals: Brittany Schofield MD [Primary Care Provider] - <Jen Breaux - Last Filed: 08/07/16 13:11> Objective PUL Vital signs: Last Vital Signs Temp 98.2 F 08/07/16 11:40 Pulse 94 08/07/16 08:00 Resp 20 08/07/16 10:48 BP 139/82 08/07/16 08:00 Pulse Ox 92 L 08/07/16 10:48 Results - Laboratory Findings CBC and BMP: 08/07/16 04:00 08/07/16 04:00 ABG ABG pH 7.36 pH Units (7.32-7.45) 08/05/16 08:26 ABG pCO2 50 mmHg (35-45) H 08/05/16 08:26 ABG pO2 83 mmHg (85-104) L 08/05/16 08:26 ABG O2 Saturation 96 % (95-98) 08/05/16 08:26 PT/INR, D-dimer PT 17.9 Seconds (9.4-12.1) H 08/03/16 03:45 Abnormal lab findings: Abnormal lab results WBC 13.8 K/mcL (4.3-11.1) H 08/07/16 04:00 MCH 27.0 pg (28.0-33.3) L 08/07/16 04:00 MCHC 29.3 g/dL (31.6-35.5) L 08/07/16 04:00 RDW 18.1 % (11.5-14.5) H 08/07/16 04:00 Plt Count 115 K/mcL (140-400) L 08/07/16 04:00 Band Neutrophils % 8.0 % (0-4) H 08/03/16 03:45 Neutrophils # 11.1 K/mcL (1.6-8.9) H 08/07/16 04:00 Nucleated RBCs/100 WBC 0.2 /100 WBC (0) H 08/07/16 04:00 Platelet Estimate Slight Decrease (Normal) L 08/06/16 03:30 Polychromasia 1+ (Not Present) A 08/06/16 03:30 Anisocytosis 1+ (Not Present) A 08/06/16 03:30 Microcytosis Present (Not Present) A 08/06/16 03:30 PT 17.9 Seconds (9.4-12.1) H 08/03/16 03:45 APTT 89.8 Seconds (26.0-36.0) H 08/05/16 03:30 ABG pCO2 50 mmHg (35-45) H 08/05/16 08:26 ABG pO2 83 mmHg (85-104) L 08/05/16 08:26 ABG HCO3 28.2 mEQ/L (21-27) H 08/05/16 08:26 ABG Total CO2 29.7 mEq/L (20-26) H 08/05/16 08:26 Sodium 131 mEq/L (135-148) L 08/05/16 05:08 Potassium 3.2 mEq/L (3.5-5.3) L 08/05/16 05:08 Glucose 132 mg/dL (60-95) H 08/05/16 05:08 Ionized Calcium 1.02 mmol/L (1.15-1.35) L 08/05/16 05:08 BUN 49 mg/dL (7-20) H 08/07/16 04:00 Creatinine 1.54 mg/dL (0.57-1.11) H 08/07/16 04:00 Est GFR ( Amer) 45 (> 60) L 08/07/16 04:00 Est GFR (Non-Af Amer) 37 (> 60) L 08/07/16 04:00 BUN/Creatinine Ratio 32 (6-26) H 08/07/16 04:00 Glucose 184 mg/dL (70-99) H 08/07/16 04:00 POC Glucose 182 (58-89) H 08/06/16 19:19 Calculated Osmolality 304 (280-300) H 08/07/16 04:00 Ionized Calcium 1.09 mmol/L (1.15-1.35) L 08/06/16 03:30 Phosphorus 6.5 mg/dL (2.3-4.7) H 08/06/16 03:30 Total Bilirubin 2.8 mg/dL (0.2-1.2) H 08/06/16 03:30 AST 71 Units/L (5-34) H 08/06/16 03:30 ALT 641 Units/L (0-55) H 08/06/16 03:30 Alkaline Phosphatase 148 Units/L (38-126) H 08/06/16 03:30 Albumin 2.2 g/dL (3.5-5.0) L 08/06/16 03:30 Globulin 4.2 g/dL (2.4-3.5) H 08/06/16 03:30 Albumin/Globulin Ratio 0.5 (1.1-2.2) L 08/06/16 03:30 - Microbiology Findings Microbiology Findings: Microbiology, Last 48 Hours 08/01/16 13:45 Blood Culture - Final Peripheral Venipuncture No growth. - Clinical Findings Intake & Output: Intake & Output 08/06/16 08/07/16 08/07/16 23:59 07:59 15:59 Intake Total 200 / 200 100 / 100 460 / 460 Output Total 950 / 950 900 / 900 350 / 350 Balance -750 / -750 -800 / -800 110 / 110 Weight 158.304 kg - Attending Attestation I examined this patient and my medical decision-making was reviewed with the CARDIOPULMONARY TECHNOLOGIST CHIEF/PA/Advanced Practice Nurse/Resident Physician. I agree with the documented findings, disposition and treatment plan as described except to the extent set forth below. Patient seen and examined. Labs, radiology, chart personally reviewed. Agree with resident's history and physical, assessment, plan with following comments: RUBBER PRESS OPERATOR: Patient follows commands, Pulmonary: Acceptable oxygenation and ventilation Cardiovascular: stable GI: Nutrition per dietary and GI prophylaxis per routine Heme: DVT prophylaxis per routine ID: Continue antibiotics and plan to de-escalation Renal; urine out put and renal funtion reviewed Endorcine: blood glucose is monitored Lines: all lines checked and no evidence of infections. If able to have peripheral access, then central line can be removed. Skin: skin care to prevent pressure ulcers per nursing routine care Awaiting for bed in the floor and continue physical therapy.
[2016-08-07] MEDS ORDERED: Pantoprazole 40 MG VIAL IVPB SCH (09:00)
[2016-08-07] MEDS: Cefepime HCl 2,000 MG in D5% in Water (Mini-Bag+) 100 ML IVPB SCH ×2 (10:57→21:14)
[2016-08-07] MEDS: *HR* Morphine Sulfate SR (12 HR) 15 MG TABLET.ER PO SCH ×2 (10:57→21:13)
--- NOTE | 2016-08-07 12:17 | Nephrology Progress Note ---
Date of Encounter: 08/07/16 Time of Encounter: 12:10 - Assessment and Plan (1) Acute renal failure Current Visit: No Status: Acute Acute kidney injury in the setting of sepsis and respiratory failure and multisystem organ failure. Renal fct improving. Urine output excellent. Will sign off, call again if needed. Qualifiers: Acute renal failure type: with acute tubular necrosis Qualified Code(s): N17.0 - Acute kidney failure with tubular necrosis Subjective Principal diagnosis: Acute respiratory failure with hypoxia and septic shock Interval history: Laying in bed, eating lunch. States feelling much better, breathing easier Objective - Vital Signs Vital signs: Vital Signs Temp Pulse Resp BP Pulse Ox 08/07/16 11:40 98.2 F 08/07/16 10:48 20 92 L 08/07/16 08:00 94 24 139/82 92 L 08/07/16 07:15 98.2 F 08/07/16 03:52 18 97 08/07/16 03:50 98.1 F 89 14 135/72 92 L 08/06/16 23:20 98.1 F 89 14 135/72 95 08/06/16 21:20 14 97 08/06/16 19:51 98.1 F 08/06/16 19:30 91 14 110/65 96 08/06/16 15:55 20 97 08/06/16 15:42 88 08/06/16 15:00 97.9 F 88 20 128/63 97 Intake and Output 08/06/16 08/07/16 08/07/16 23:59 07:59 15:59 Intake Total 200 / 200 100 / 100 460 / 460 Output Total 950 / 950 900 / 900 350 / 350 Balance -750 / -750 -800 / -800 110 / 110 Intake: IV Fluids 100 / 100 100 / 100 Maxipime 2,000 MG In 100 / 100 100 / 100 Dextrose 5% (Minibag+) 100 ML 100 ML @ 200 mls/ hr IVPB Q12H [facility] Rx#: [id number] Oral 100 / 100 100 / 100 360 / 360 Output: Urine 100 / 100 Catheter 950 / 950 900 / 900 250 / 250 Other: Meal Dinner Breakfast Percent of Meal Consumed 100% 100% Stool Size Moderate Stool Consistency soft Stool Characteristics Normal for Patient Stool Color Brown Weight 158.304 kg Blood Glucose* 182 147 249 - General Appearance General appearance: Present: well-developed, well-nourished, appears started age , obese EENT: Present: mucous membranes moist Neck: Present: no JVD Additional Comments: harsh breath sounds t/o Cardiology: Present: regular rate, regular rhythm Additional Comments: edema improving, blisters on right foot receding, few toes remain dusky. Gastrointestinal: Present: normoactive bowel sounds, obese Integumentary: Present: warm and dry Neurologic: Present: alert and oriented x3 Psychiatric: Present: mood/affect appropriate, cooperative - Lab 08/07/16 04:00 08/07/16 04:00 Most recent lab results ABG pH 7.36 pH Units (7.32-7.45) 08/05/16 08:26 ABG pCO2 50 mmHg (35-45) H 08/05/16 08:26 ABG pO2 83 mmHg (85-104) L 08/05/16 08:26 ABG HCO3 28.2 mEQ/L (21-27) H 08/05/16 08:26 ABG O2 Saturation 96 % (95-98) 08/05/16 08:26 Calcium 8.9 mg/dL (8.6-10.8) 08/07/16 04:00 Phosphorus 6.5 mg/dL (2.3-4.7) H 08/06/16 03:30 Magnesium 1.8 mg/dL (1.6-2.6) 08/06/16 03:30 Consult Discharge Plan - Plan Referrals: Brittany Schofield MD [Primary Care Provider] -
[2016-08-07] MEDS: Insulin LISPRO 300 UNITS/3 ML VIAL SQ SCH ×3 (13:27→21:20)
[2016-08-07] MEDS: *HR* Heparin 5,000 UNIT/ML VIAL SQ SCH ×2 (16:20→22:53)
[2016-08-08] MEDS: Albuterol 2.5 MG/3 ML NEBULIZER IH SCH ×4 (04:30→22:36)
[2016-08-08] MEDS: *HR* Heparin 5,000 UNIT/ML VIAL SQ SCH ×3 (06:38→23:20)
[2016-08-08] MEDS: Insulin LISPRO 300 UNITS/3 ML VIAL SQ SCH ×4 (09:13→21:19)
[2016-08-08] MEDS: *HR* Morphine Sulfate SR (12 HR) 15 MG TABLET.ER PO SCH ×2 (09:13→20:31)
[2016-08-08 10:13] LABS: Basophils % 0.2 %; Eosinophils # 0.3 K/mcL (0.0-0.6); Eosinophils % 2.4 %; Hematocrit 43.3 % (35.3-44.9); Hemoglobin 12.4 g/dL (11.5-15.4); Immature Granulocytes % 1.1 % (0-4); Lymphocytes # 0.9 K/mcL (0.6-4.6); Lymphocytes % 8.8 %; Mean Corpuscular HGB Conc 28.6 g/dL (31.6-35.5); Mean Corpuscular Volume 94.1 fL (83.0-100.0); Mean Platelet Volume 11.2 fL (9.4-12.4); Monocytes # 0.8 K/mcL (0.0-1.3); Monocytes % 7.4 %; Neutrophils # 8.6 K/mcL (1.6-8.9); Platelet Count 171 K/mcL (140-400); Red Cell Distribution Width 18.1 % (11.5-14.5); Segmented Neutrophils % 80.1 %
[2016-08-08 10:24] LABS: Calcium 9.3 mg/dL (8.6-10.8)
[2016-08-08 10:50] LABS: Hypochromasia Present (Not Present); Platelet Estimate Normal (Normal)
[2016-08-08 10:51] LABS: Anisocytosis 1+ (Not Present); Polychromasia 1+ (Not Present)
--- NOTE | 2016-08-08 11:13 | Internal Med Progress Note ---
Date of Encounter: 08/08/16 Time of Encounter: 09:30 - Assessment and plan (1) Acute respiratory failure with hypoxia Current Visit: Yes Status: Acute Assessment and plan: Improving. Currently on 4 L O2 supplementation via nasal cannula. We will continue to wean as tolerated. (2) Transaminitis Current Visit: Yes Status: Acute Assessment and plan: Resolving. (3) Septic shock Current Visit: Yes Status: Resolved Assessment and plan: This has resolved. Patient completed 7 days of antibiotics without any positive blood cultures. (4) Acute renal failure Current Visit: No Status: Acute Assessment and plan: Improving. Creatinine 1.5 today. BUN remains elevated. Qualifiers: Acute renal failure type: with acute tubular necrosis Qualified Code(s): N17.0 - Acute kidney failure with tubular necrosis (5) DVT prophylaxis Current Visit: Yes Status: Acute Assessment and plan: With subcutaneous heparin - Subjective Interval history: Patient is feeling better. Denies any new complaints at this time. Her respiratory status is improving. Not dyspneic currently. No fever or chills. No abdominal pain. - Constitutional Vitals: Temp Pulse Resp BP Pulse Ox 98.3 F 83 18 134/87 100 08/08/16 07:40 08/08/16 07:40 08/08/16 07:40 08/08/16 07:40 08/08/16 07:40 General appearance: Present: cooperative, A&O X 3, morbidly obese, pleasant, answers questions appropriately - Respiratory Respiratory exam: Present: prolonged expiratory phase. Absent: accessory muscle use, rales, rhonchi Additional comments: Diminished breath sounds bilaterally - Cardiovascular Cardiovascular exam: Present: RRR, +S1, +S2. Absent: diastolic murmur, gallop, rubs, systolic murmur - GI/Abdominal GI/Abdominal exam: Present: normal bowel sounds, soft, no peritoneal signs. Absent: distended, tenderness - Extremities Exam Extremities exam: Present: pedal edema, warm, radial pulses palpable and symetrical. Absent: calf tenderness, cyanotic Additional comments: Blisters noted on right lower extremity on the dorsum of her foot. No discharge noted. Filled with clear fluid - Neurological Exam Neurological exam: Present: CN II-XII intact, oriented X3, no focal deficits. Absent: facial droop, speech deficit - Skin Skin exam: Present: dry, intact Internal Medicine: Result - Labs CBC & Chem 7: 08/08/16 09:30 08/08/16 09:30 Labs: Short CBC 08/08/16 Range/Units 09:30 WBC 10.7 (4.3-11.1) K/mcL Hgb 12.4 (11.5-15.4) g/dL Hct 43.3 (35.3-44.9) % Plt Count 171 (140-400) K/mcL Neutrophils # 8.6 (1.6-8.9) K/mcL BMP 08/08/16 09:30 Sodium 137 Potassium 4.0 Chloride 98 Carbon Dioxide 30 H BUN 53 H Creatinine 1.50 H Glucose 232 H Calcium 9.3 - ABG Interpretation ABG results: ABG ABG pH 7.36 pH Units (7.32-7.45) 08/05/16 08:26 ABG pCO2 50 mmHg (35-45) H 08/05/16 08:26 ABG pO2 83 mmHg (85-104) L 08/05/16 08:26 ABG O2 Saturation 96 % (95-98) 08/05/16 08:26 PT/INR, D-dimer PT 17.9 Seconds (9.4-12.1) H 08/03/16 03:45 Consult Discharge Plan - Plan Referrals: Brittany Schofield MD [Primary Care Provider] - - Attending Attestation This document has been at least partially created by [employer] recognition technology by Dr. Acosta. Errors in grammar, wording or other phrases may exist. If errors are found after the documentation is signed, they will be addressed individually in the addendum section of this document when appropriate.
[2016-08-08] MEDS: *HR* OxyCODONE Immed Rel 5 MG TABLET PO PRN ×2 (12:00→23:20)
[2016-08-09] MEDS: Albuterol 2.5 MG/3 ML NEBULIZER IH SCH ×4 (03:59→22:16)
[2016-08-09 07:20] LABS: Calcium 9.1 mg/dL (8.6-10.8)
[2016-08-09 07:46] LABS: Hematocrit 42.7 % (35.3-44.9); Hemoglobin 12.1 g/dL (11.5-15.4); Mean Corpuscular HGB Conc 28.3 g/dL (31.6-35.5); Mean Corpuscular Hemoglobin 26.5 pg (28.0-33.3); Mean Corpuscular Volume 93.4 fL (83.0-100.0); Mean Platelet Volume 10.9 fL (9.4-12.4); Neutrophils # 7.3 K/mcL (1.6-8.9); Platelet Count 204 K/mcL (140-400); Red Blood Count 4.57 M/mcL (3.82-4.97); Red Cell Distribution Width 18.1 % (11.5-14.5)
[2016-08-09 08:34] LABS: Basophils # 0.2 K/mcL (0.0-0.2); Eosinophils # 0.4 K/mcL (0.0-0.6); Lymphocytes # 1.2 K/mcL (0.6-4.6)
[2016-08-09 08:35] LABS: Anisocytosis 1+ (Not Present); Hypochromasia Present (Not Present); Polychromasia 1+ (Not Present)
[2016-08-09 08:36] LABS: Platelet Estimate Normal (Normal)
[2016-08-09] MEDS: Insulin LISPRO 300 UNITS/3 ML VIAL SQ SCH ×5 (08:50→20:30)
[2016-08-09] MEDS: *HR* Morphine Sulfate SR (12 HR) 15 MG TABLET.ER PO SCH ×2 (08:56→20:30)
[2016-08-09] MEDS: *HR* Heparin 5,000 UNIT/ML VIAL SQ SCH ×3 (08:57→23:56)
--- NOTE | 2016-08-09 11:22 | Internal Med Progress Note ---
Date of Encounter: 08/09/16 Time of Encounter: 10:15 - Assessment and plan (1) Acute respiratory failure with hypoxia Current Visit: Yes Status: Acute Assessment and plan: Improving. Continue to wean FiO2 as tolerated. Moderate risk for complications. (2) Transaminitis Current Visit: Yes Status: Acute Assessment and plan: Resolving. (3) Septic shock Current Visit: Yes Status: Resolved (4) Chronic kidney disease, stage 3 Current Visit: Yes Status: Chronic Assessment and plan: Patient has slight elevation in creatinine today compared to yesterday. IV fluids have been stopped. Patient has signs suggestive of fluid overload with pedal edema. The previously taking torsemide at home. We will restart this medication. Follow renal function closely. (5) Acute renal failure Current Visit: No Status: Inactive Qualifiers: Acute renal failure type: with acute tubular necrosis Qualified Code(s): N17.0 - Acute kidney failure with tubular necrosis (6) DVT prophylaxis Current Visit: Yes Status: Acute - Subjective Interval history: Patient continues to improve. Denies any complaints. Has been able to ambulate with the help of her family members. Denies any dizziness or lightheadedness. - Constitutional Vitals: Temp Pulse Resp BP Pulse Ox 97.5 F L 108 16 134/80 94 L 08/09/16 08:11 08/09/16 08:11 08/09/16 08:11 08/09/16 08:11 08/09/16 08:11 General appearance: Present: cooperative, A&O X 3, morbidly obese, pleasant, answers questions appropriately - Respiratory Respiratory exam: Present: CTAB. Absent: accessory muscle use, rales, rhonchi, wheezes - Cardiovascular Cardiovascular exam: Present: RRR, +S1, +S2. Absent: diastolic murmur, gallop, rubs, systolic murmur - GI/Abdominal GI/Abdominal exam: Present: normal bowel sounds, soft, no peritoneal signs. Absent: distended, tenderness - Extremities Exam Extremities exam: Present: warm, radial pulses palpable and symetrical. Absent : calf tenderness, cyanotic, pedal edema Additional comments: Blisters present on dorsal surface of foot filled with clear fluid. Nontender to palpation. No signs of cellulitis. Internal Medicine: Result - Labs CBC & Chem 7: 08/09/16 06:56 08/09/16 06:56 Labs: Short CBC 08/09/16 Range/Units 06:56 WBC 10.1 (4.3-11.1) K/mcL Hgb 12.1 (11.5-15.4) g/dL Hct 42.7 (35.3-44.9) % Plt Count 204 (140-400) K/mcL Neutrophils # 7.3 (1.6-8.9) K/mcL BMP 08/09/16 06:56 Sodium 138 Potassium 4.0 Chloride 101 Carbon Dioxide 27 BUN 57 H Creatinine 1.61 H Glucose 190 H Calcium 9.1 - ABG Interpretation ABG results: ABG ABG pH 7.36 pH Units (7.32-7.45) 08/05/16 08:26 ABG pCO2 50 mmHg (35-45) H 08/05/16 08:26 ABG pO2 83 mmHg (85-104) L 08/05/16 08:26 ABG O2 Saturation 96 % (95-98) 08/05/16 08:26 PT/INR, D-dimer PT 17.9 Seconds (9.4-12.1) H 08/03/16 03:45 Consult Discharge Plan - Plan Referrals: Brittany Schofield MD [Primary Care Provider] - - Attending Attestation This document has been at least partially created by [employer] recognition technology by Dr. Acosta. Errors in grammar, wording or other phrases may exist. If errors are found after the documentation is signed, they will be addressed individually in the addendum section of this document when appropriate.
[2016-08-09] MEDS: Torsemide 20 MG TABLET PO SCH (11:31)
[2016-08-09] MEDS: *HR* OxyCODONE Immed Rel 5 MG TABLET PO PRN ×2 (11:32→18:46)
[2016-08-10] MEDS: *HR* OxyCODONE Immed Rel 5 MG TABLET PO PRN ×3 (02:49→17:39)
[2016-08-10] MEDS: Albuterol 2.5 MG/3 ML NEBULIZER IH SCH ×3 (03:52→15:33)
[2016-08-10] MEDS: *HR* Heparin 5,000 UNIT/ML VIAL SQ SCH ×2 (06:04→17:38)
[2016-08-10] MEDS: Insulin LISPRO 300 UNITS/3 ML VIAL SQ SCH ×4 (08:42→21:30)
[2016-08-10] MEDS: Torsemide 20 MG TABLET PO SCH (08:43)
[2016-08-10] MEDS: *HR* Morphine Sulfate SR (12 HR) 15 MG TABLET.ER PO SCH ×2 (08:44→21:29)
--- NOTE | 2016-08-10 11:05 | Internal Med Progress Note ---
Date of Encounter: 08/10/16 Time of Encounter: 09:00 - Assessment and plan (1) Acute respiratory failure with hypoxia Current Visit: Yes Status: Acute Assessment and plan: Improving. Continue to wean FiO2 as tolerated. Incentive spirometry. (2) Transaminitis Current Visit: Yes Status: Acute (3) Septic shock Current Visit: Yes Status: Resolved (4) Chronic kidney disease, stage 3 Current Visit: Yes Status: Chronic Assessment and plan: Creatinine at baseline. (5) Acute renal failure Current Visit: No Status: Inactive Qualifiers: Acute renal failure type: with acute tubular necrosis Qualified Code(s): N17.0 - Acute kidney failure with tubular necrosis (6) DVT prophylaxis Current Visit: Yes Status: Acute (7) Blister of right foot without infection Current Visit: Yes Status: Acute Assessment and plan: With serous fluid. No signs of infection. Likely due to significant edema. We will consult wound care. Qualifiers: Encounter type: subsequent encounter Qualified Code(s): S90.821D - Blister (nonthermal), right foot, subsequent encounter - Subjective Interval history: Patient is awake and alert. Comfortable. Denies any new complaints at this time. Breathing well. No shortness of breath. No chest pain. - Constitutional Vitals: Temp Pulse Resp BP Pulse Ox 97.6 F 108 18 126/72 97 08/10/16 06:42 08/10/16 06:42 08/10/16 06:42 08/10/16 06:42 08/10/16 06:42 General appearance: Present: cooperative, A&O X 3, morbidly obese, pleasant, answers questions appropriately - Neck Neck exam general surgery: Present: supple, trachea midline. Absent: lymphadenopathy - Respiratory Respiratory exam: Present: CTAB. Absent: accessory muscle use, rales, rhonchi, wheezes - Cardiovascular Cardiovascular exam: Present: RRR, +S1, +S2. Absent: diastolic murmur, gallop, rubs, systolic murmur - GI/Abdominal GI/Abdominal exam: Present: normal bowel sounds, soft, no peritoneal signs. Absent: distended, tenderness - Extremities Exam Extremities exam: Present: pedal edema (Bilateral pedal edema), warm, radial pulses palpable and symetrical. Absent: calf tenderness, cyanotic Additional comments: Blisters present on right foot dorsal surface. Also open ulcer noted on the third and fourth toes dorsum. No signs of infection. - Neurological Exam Neurological exam: Present: alert, CN II-XII intact, oriented X3, no focal deficits. Absent: facial droop, speech deficit - Skin Skin exam: Present: dry, intact Internal Medicine: Result - Labs CBC & Chem 7: 08/09/16 06:56 08/09/16 06:56 - ABG Interpretation ABG results: ABG ABG pH 7.36 pH Units (7.32-7.45) 08/05/16 08:26 ABG pCO2 50 mmHg (35-45) H 08/05/16 08:26 ABG pO2 83 mmHg (85-104) L 08/05/16 08:26 ABG O2 Saturation 96 % (95-98) 08/05/16 08:26 PT/INR, D-dimer PT 17.9 Seconds (9.4-12.1) H 08/03/16 03:45 Consult Discharge Plan - Plan Referrals: Brittany Schofield MD [Primary Care Provider] - - Attending Attestation This document has been at least partially created by [employer] recognition technology by Dr. Acosta. Errors in grammar, wording or other phrases may exist. If errors are found after the documentation is signed, they will be addressed individually in the addendum section of this document when appropriate.
[2016-08-11] MEDS: *HR* Heparin 5,000 UNIT/ML VIAL SQ SCH ×3 (00:35→15:59)
[2016-08-11] MEDS: Albuterol 2.5 MG/3 ML NEBULIZER IH SCH ×5 (00:36→15:55)
[2016-08-11] MEDS: *HR* OxyCODONE Immed Rel 5 MG TABLET PO PRN (06:20)
[2016-08-11] MEDS: Insulin LISPRO 300 UNITS/3 ML VIAL SQ SCH ×2 (08:02→11:56)
[2016-08-11] MEDS: *HR* Morphine Sulfate SR (12 HR) 15 MG TABLET.ER PO SCH (08:03)
[2016-08-11] MEDS: Torsemide 20 MG TABLET PO SCH (08:03)
[2016-08-11 09:50] LABS: Basophils % 0.4 %; Eosinophils % 2.4 %; Hemoglobin 12.3 g/dL (11.5-15.4)
[2016-08-11 09:52] LABS: Eosinophils # 0.2 K/mcL (0.0-0.6); Hematocrit 41.2 % (35.3-44.9); Immature Granulocytes % 0.5 % (0-4); Lymphocytes # 1.2 K/mcL (0.6-4.6); Lymphocytes % 14.5 %; Mean Corpuscular HGB Conc 29.9 g/dL (31.6-35.5); Mean Corpuscular Hemoglobin 27.6 pg (28.0-33.3); Mean Corpuscular Volume 92.6 fL (83.0-100.0); Mean Platelet Volume 10.6 fL (9.4-12.4); Monocytes # 0.7 K/mcL (0.0-1.3); Monocytes % 8.3 %; Neutrophils # 6.3 K/mcL (1.6-8.9); Platelet Count 238 K/mcL (140-400); Red Blood Count 4.45 M/mcL (3.82-4.97); Segmented Neutrophils % 73.9 %
[2016-08-11 10:12] LABS: Calcium 9.2 mg/dL (8.6-10.8)
[2016-08-11 10:28] LABS: Hypochromasia Present (Not Present)
[2016-08-11 11:59] VITALS: BP 128/83
--- NOTE | 2016-08-11 12:50 | Discharge Summary ---
Date of Encounter: 08/11/16 Time of Encounter: 12:45 - Discharge Diagnosis (1) Acute respiratory failure with hypoxia Priority: Primary Status: Acute (2) Transaminitis Priority: Secondary Status: Acute (3) Septic shock Priority: Secondary Status: Resolved (4) Chronic kidney disease, stage 3 Priority: Secondary Status: Chronic (5) Acute renal failure Priority: Secondary Status: Inactive Qualifiers: Acute renal failure type: with acute tubular necrosis Qualified Code(s): N17.0 - Acute kidney failure with tubular necrosis (6) DVT prophylaxis Priority: Secondary Status: Acute (7) Blister of right foot without infection Priority: Secondary Status: Acute Qualifiers: Encounter type: subsequent encounter Qualified Code(s): S90.821D - Blister (nonthermal), right foot, subsequent encounter (8) COPD (chronic obstructive pulmonary disease) Priority: Secondary Status: Chronic Qualifiers: COPD type: chronic bronchitis Chronic bronchitis type: simple Qualified Code(s): J41.0 - Simple chronic bronchitis - Discharge Medications Prescriptions: Morphine Sulfate [Kathleen] 15 mg PO BID #14 cap.er.pel Oxycodone HCl 5 mg PO BID PRN #14 capsule PRN Reason: Pain Torsemide [Demadex] 60 mg PO DAILY #90 tablet Home Medications: Aclidinium [place] [Tudorza Pressair] 1 puff IH DAILY 08/01/16 [History] Albuterol Neb [Proventil Neb] 2.5 mg IH ONCE 08/01/16 [History] Albuterol Sulfate [Ventolin Hfa] 2 puff IH Q4H PRN 08/01/16 [History] Alprazolam 2 mg PO BID PRN 08/01/16 [History] Aspirin 81 mg PO DAILY 08/01/16 [History] Ergocalciferol (VITAMIN D2) [Vitamin D2] 50,000 unit PO QWEEK 08/01/16 [History] Insulin Degludec [Tresiba Flextouch U-100] 100 unit SQ DAILY 08/01/16 [History] Liraglutide [Victoza 3-Jimy] 1.2 mg SQ DAILY 08/01/16 [History] Loratadine [Claritin] 10 mg PO DAILY 08/01/16 [History] Metoprolol [Lopressor] 25 mg PO DAILY 08/01/16 [History] Omeprazole [PriLOSEC] 20 mg PO DAILY 08/01/16 [History] Ondansetron HCl 4 mg PO Q6H PRN 08/01/16 [History] Potassium Chloride [K-Tab ER] 20 meq PO DAILY 08/01/16 [History] Pravastatin Sodium [Pravachol] 40 mg PO DAILY 08/01/16 [History] Docusate [Colace] 200 mg PO DAILY capsule 08/11/16 [Rx] Morphine Sulfate [Kathleen] 15 mg PO BID #14 cap.er.pel 08/11/16 [Rx] Oxycodone HCl 5 mg PO BID PRN #14 capsule 08/11/16 [Rx] Torsemide [Demadex] 60 mg PO DAILY #90 tablet 08/11/16 [Rx] Allergies/Adverse Reactions: Allergies No Known Allergies Allergy (Verified 08/01/16 07:54) Date of admission: 08/01/16 10:29 Primary care physician: Brittany Schofield, Consults: 08/01/16 13:29 Consult to Nephrology [CONS] Routine Consulting Provider: [facility] Spcdior MAJANO Reason for Consult: PAMELA Time Notified: 13:00 Call Completed: Yes 08/02/16 08:01 consult to assistant professor of economics [Consult to Nutrition] [CONS] Stat Comment: Consulting Provider: NUTRITION Reason for Dietary Consult: TF Start and Manage 08/06/16 07:28 Consult to Physical Therapy [CONS] Routine Comment: Evaluate, develop and implement POC OT [Consult to Occupational Therapy] [CONS] Routine Comment: Evaluate, develop and implement POC 08/06/16 14:02 Consult to Planning Rn [CONS] Routine Reason for SW Consult: Inpatient rehab swing bed suggested by PT OT. 08/07/16 11:00 Consult to Invasive Line Access Team [CONS] Routine Reason for Consult: poor access Line Type: EPIV 08/10/16 11:07 Consult to Wound Care [CONS] Routine Reason for Consult: RIght foot blisters Time Notified: 11:07 Call Completed: No - Patient Status Disposition: Transfer SNF Condition: Good Functional capacity at discharge: uses cane/walker Overall status at discharge: patient is progressing back to baseline - Discharge Instructions Instructions: Oxycodone/Acetaminophen (By mouth), Torsemide (By mouth), Morphine, Slow Release (By mouth), Acute Respiratory Distress Syndrome (DC), Chronic Kidney Disease (DC) Follow Up With: Brittany Schofield MD [Primary Care Provider] - 08/18/16 11:30 am (Please follow up as schedule.... Please send discharge summary with the patient...) Jeremie Majano, [Non-Partnered Physician] - (in 1-2 weeks) - Diet and Activity Activity: as per physical therapy Diet: diabetic diet, low fat, low cholesterol, low salt diet Hospital course: Ms. Butler is a 41 year old female with history of COPD, hypertension diabetes, sleep apnea, morbid obesity was admitted here with acute respiratory failure with hypoxia. She was intubated intubated in the ER and admitted to ICU. She was also hypotensive and was diagnosed with septic shock. She received IV fluids, IV antibiotics. She slowly improved with this treatment plan. She had negative blood cultures. She completed 7 day IV antibiotic course. She was then extubated and transferred out of the ICU to [facility]. On presentation she also had acute kidney injury on underlying chronic kidney disease stage III. Her creatinine is around 5 on presentation. This has since improved. Her creatinine is now around her baseline. Nephrology was consulted and they are helping manage her acute kidney injury. She has had good urine output. She does have significant pedal edema and has now been placed back on torsemide at a lower dose. She has blisters on her right foot which are filled with serous fluid likely due to pedal edema. Wound care was consulted and have recommended local wound care plan. Patient was evaluated by physical therapy and recommended placement to nursing home facility for rehabilitation. She does require home O2 at 4/min COPD/ Obesity hypoventilation. Her diabetes was managed with insulin here. Patient take victoza and Tresiba at home which she will continue to use. Blood pressure has been well controlled here. She is clinically stable for discharge at this time. - Time Spent with Patient Total time spent providing and/or coordinating discharge services: Greater than 30 minutes (45 min) - Constitutional Vitals: Temp Pulse Resp BP Pulse Ox 97.4 F L 88 18 128/83 93 L 08/11/16 11:58 08/11/16 11:58 08/11/16 11:58 08/11/16 11:58 08/11/16 11:58 General appearance: Present: cooperative, A&O X 3, morbidly obese, pleasant, answers questions appropriately - Respiratory Respiratory exam: Present: CTAB. Absent: accessory muscle use, rales, rhonchi, wheezes - Cardiovascular Cardiovascular exam: Present: RRR, +S1, +S2. Absent: diastolic murmur, gallop, rubs, systolic murmur - GI/Abdominal GI/Abdominal exam: Present: normal bowel sounds, soft, no peritoneal signs. Absent: distended, tenderness - Extremities Exam Extremities exam: Present: pedal edema, warm, radial pulses palpable and symetrical. Absent: calf tenderness, cyanotic Additional comments: blisters with serous fluid on dorsal surface. Decreasing in size. No signs of infection. - Neurological Exam Neurological exam: Present: alert, oriented X3, no focal deficits. Absent: facial droop, speech deficit - Attending Attestation This document has been at least partially created by [employer] recognition technology by Dr. Acosta. Errors in grammar, wording or other phrases may exist. If errors are found after the documentation is signed, they will be addressed individually in the addendum section of this document when appropriate.
--- NOTE | 2016-08-11 13:01 | Physician Discharge Referral ---
ExtendedCare Referral Info Transfer To: SNF Provider in Charge after Transfer: PCP Institutional Level of Care: Skilled - Diagnosis (1) Acute respiratory failure with hypoxia Priority: Primary Status: Acute (2) Transaminitis Priority: Secondary Status: Acute (3) Septic shock Priority: Secondary Status: Resolved (4) Chronic kidney disease, stage 3 Priority: Secondary Status: Chronic (5) Acute renal failure Priority: Secondary Status: Inactive (6) DVT prophylaxis Priority: Secondary Status: Acute (7) Blister of right foot without infection Priority: Secondary Status: Acute - Transfer Medications Prescriptions: Morphine Sulfate [Kathleen] 15 mg PO BID #14 cap.er.pel Oxycodone HCl 5 mg PO BID PRN #14 capsule PRN Reason: Pain Torsemide [Demadex] 60 mg PO DAILY #90 tablet Home Medications: Aclidinium [place] [Tudorza Pressair] 1 puff IH DAILY 08/01/16 [History] Albuterol Neb [Proventil Neb] 2.5 mg IH ONCE 08/01/16 [History] Albuterol Sulfate [Ventolin Hfa] 2 puff IH Q4H PRN 08/01/16 [History] Alprazolam 2 mg PO BID PRN 08/01/16 [History] Aspirin 81 mg PO DAILY 08/01/16 [History] Ergocalciferol (VITAMIN D2) [Vitamin D2] 50,000 unit PO QWEEK 08/01/16 [History] Insulin Degludec [Tresiba Flextouch U-100] 100 unit SQ DAILY 08/01/16 [History] Liraglutide [Victoza 3-Jimy] 1.2 mg SQ DAILY 08/01/16 [History] Loratadine [Claritin] 10 mg PO DAILY 08/01/16 [History] Metoprolol [Lopressor] 25 mg PO DAILY 08/01/16 [History] Omeprazole [PriLOSEC] 20 mg PO DAILY 08/01/16 [History] Ondansetron HCl 4 mg PO Q6H PRN 08/01/16 [History] Potassium Chloride [K-Tab ER] 20 meq PO DAILY 08/01/16 [History] Pravastatin Sodium [Pravachol] 40 mg PO DAILY 08/01/16 [History] Docusate [Colace] 200 mg PO DAILY capsule 08/11/16 [Rx] Morphine Sulfate [Kathleen] 15 mg PO BID #14 cap.er.pel 08/11/16 [Rx] Oxycodone HCl 5 mg PO BID PRN #14 capsule 08/11/16 [Rx] Torsemide [Demadex] 60 mg PO DAILY #90 tablet 08/11/16 [Rx] Allergies/Adverse Reactions: Allergies No Known Allergies Allergy (Verified 08/01/16 07:54) - Respiratory Orders Smoking Cessation: Smoking cessation has been advised. For more information, call the [place] Tobacco Quit Line at 4-836-WQTT-NOW. - Ancillary Orders May use pressure relief devices daily prn, May consult with Dentist, Paperboard Machine Operator, Webmaster PRN - Advance Directives Code Status: Full Code - Rehabiliation Orders Rehab Orders: Evaluation for Physical Therapy, Evaluation for Occupational Therapy - Treatments List/Other: Wound Care: cleanse blisters to right dorsal foot with HCG soap and water daily - rinse well with water and pat dry - cover with adaptic gauze 2 layers so as not to stick if blisters rupture spontaneously - pad with 5x9 ABD - wrap with kerlix - change daily - Diet Orders Cardiac (and Diabetic) CERTIFICATION: I certify that the transfer of the above named patient to an Extended Care Facility is necessary for the continuing treatment of the diagnosis listed. The above information is true and accurate reflection of patient's current condition. Confidential - Redisclosure prohibited without a patient's written consent.
--- NOTE | 2016-08-11 16:08 | Physician Discharge Referral ---
Home Health/Hosp Referral Info Transfer to: Home Health Provider in Charge Post Discharge: PCP - Diagnosis (1) Acute respiratory failure with hypoxia Priority: Primary Status: Acute (2) Transaminitis Priority: Secondary Status: Acute (3) Septic shock Priority: Secondary Status: Resolved (4) Chronic kidney disease, stage 3 Priority: Secondary Status: Chronic (5) Acute renal failure Priority: Secondary Status: Inactive (6) DVT prophylaxis Priority: Secondary Status: Acute (7) Blister of right foot without infection Priority: Secondary Status: Acute - Respiratory Orders Oxygen / L per min (4) Smoking Cessation: Smoking cessation has been advised. For more information, call the [place] Tobacco Quit Line at 0-630-KRBB-NOW. - Diet/Nutrition Diet/Nutrition Orders: Cardiac (and diabetic) - Activity Activity Orders: Walker - Services Needed Following services are medically necessary services: Nursing, Physical Therapy, Occupational Therapy Home Care Orders: Wound Care: cleanse blisters to right dorsal foot with HCG soap and water daily - rinse well with water and pat dry - cover with adaptic gauze 2 layers so as not to stick if blisters rupture spontaneously - pad with 5x9 ABD - wrap with kerlix - change daily - Transfer Medications Prescriptions: Morphine Sulfate [Kathleen] 15 mg PO BID #14 cap.er.pel Oxycodone HCl 5 mg PO BID PRN #14 capsule PRN Reason: Pain Torsemide [Demadex] 60 mg PO DAILY #90 tablet Home Medications: Aclidinium [place] [Tudorza Pressair] 1 puff IH DAILY 08/01/16 [History] Albuterol Neb [Proventil Neb] 2.5 mg IH ONCE 08/01/16 [History] Albuterol Sulfate [Ventolin Hfa] 2 puff IH Q4H PRN 08/01/16 [History] Alprazolam 2 mg PO BID PRN 08/01/16 [History] Aspirin 81 mg PO DAILY 08/01/16 [History] Ergocalciferol (VITAMIN D2) [Vitamin D2] 50,000 unit PO QWEEK 08/01/16 [History] Insulin Degludec [Tresiba Flextouch U-100] 100 unit SQ DAILY 08/01/16 [History] Liraglutide [Victoza 3-Jimy] 1.2 mg SQ DAILY 08/01/16 [History] Loratadine [Claritin] 10 mg PO DAILY 08/01/16 [History] Metoprolol [Lopressor] 25 mg PO DAILY 08/01/16 [History] Omeprazole [PriLOSEC] 20 mg PO DAILY 08/01/16 [History] Ondansetron HCl 4 mg PO Q6H PRN 08/01/16 [History] Potassium Chloride [K-Tab ER] 20 meq PO DAILY 08/01/16 [History] Pravastatin Sodium [Pravachol] 40 mg PO DAILY 08/01/16 [History] Docusate [Colace] 200 mg PO DAILY capsule 08/11/16 [Rx] Morphine Sulfate [Kathleen] 15 mg PO BID #14 cap.er.pel 08/11/16 [Rx] Oxycodone HCl 5 mg PO BID PRN #14 capsule 08/11/16 [Rx] Torsemide [Demadex] 60 mg PO DAILY #90 tablet 08/11/16 [Rx] Allergies/Adverse Reactions: Allergies No Known Allergies Allergy (Verified 08/01/16 07:54) Certification: Further, I certify that my clinical findings support that this patient is homebound (i.e. absences from home require considerable and taxing effort and are for medical reasons or hoahaoism services or infrequently or short duration when for other reasons) because: Homebound Reason: Patient requires assistance of a person or device to safely leave home Attestation: My signature below is to certify that this patient is under my care and that I, or nurse practitioner, or a physician's executive assistant working with me, has a face-to -face encounter with this patient.
[2016-08-12] MEDS ORDERED: Torsemide 20 MG TABLET PO SCH (09:00)
== END 2016-08-11 16:55 | DRG 720 ==
LOC: SUATTDRO 10:29 → ICNU 10:29 → 2ANU 08-07 17:35
PROVIDERS: ADMIT Specialist; ATTEND Internal Medicine

== ENCOUNTER 2019-08-19 10:41 | Inpatient (IN) ==
[2019-08-19] MEDS ORDERED: Ondansetron 4 MG/2 ML VIAL IVP PRN (13:36)
[2019-08-19] MEDS ORDERED: Naloxone 0.4 MG/ML INJ IVP PRN (13:36)
[2019-08-19] MEDS ORDERED: *HR* Dextrose 50 % in Water (Syg) 50 ML SYRINGE IVP PRN (13:39)
[2019-08-19] MEDS ORDERED: Dextrose Gel 15 GM/37.5 ML TUBE PO PRN ×2 (13:39)
[2019-08-19] MEDS ORDERED: D5% in Water 1,000 ML IVC PRN (13:39)
[2019-08-19] MEDS ORDERED: Ipratropium/Albuterol Neb 3 ML IH PRN (14:14)
[2019-08-19] MEDS: *HR* Heparin 5,000 UNIT/ML VIAL SQ SCH ×2 (14:37→20:36)
[2019-08-19] MEDS ORDERED: Perflutren Lipid Microsphere 1.3 ML in 0.9 % Sodium Chloride 8.7 ML IVP ONE (15:32)
[2019-08-19] MEDS: Insulin LISPRO 300 UNITS/3 ML VIAL SQ SCH ×2 (17:28→20:37)
[2019-08-19] MEDS: Insulin DETEMIR 100 UNIT/ML X5UNITS SQ SCH (20:36)
[2019-08-19] MEDS ORDERED: Furosemide 40 MG/4 ML VIAL IVP SCH (21:00)
[2019-08-19] MEDS: Morphine Sulfate ER (12 HR) 15 MG TABLET.ER PO SCH (21:29)
[2019-08-20 00:57] LABS: Platelet Count 205 K/mcL (140-400)
[2019-08-20 00:58] LABS: Hematocrit 30.8 % (35.3-44.9); Hemoglobin 8.1 g/dL (11.5-15.4); Mean Corpuscular HGB Conc 26.3 g/dL (31.6-35.5); Mean Corpuscular Hemoglobin 24.4 pg (28.0-33.3); Mean Corpuscular Volume 92.8 fL (83.0-100.0); Mean Platelet Volume 9.5 fL (9.4-12.4); Red Blood Count 3.32 M/mcL (3.82-4.97); Red Cell Distribution Width 18.1 % (11.5-14.5); White Blood Count 9.2 K/mcL (4.3-11.1)
[2019-08-20 01:10] LABS: VBG HCO3 37 mEq/L (21-27); VBG PCO2 93 mmHg (41-51); VBG PH 7.21 pH Units (7.32-7.42); VBG PO2 56 mmHg (25-50)
[2019-08-20 01:17] LABS: Calcium 7.8 mg/dL (8.6-10.3); Magnesium 1.2 mg/dL (1.6-2.6); Potassium 4.6 mEq/L (3.5-5.1)
[2019-08-20] MEDS: *HR* Heparin 5,000 UNIT/ML VIAL SQ SCH (05:18)
[2019-08-20] MEDS: Metoprolol XL (24 HR) Succ 25 MG TAB.ER.24H PO SCH ×2 (08:51→19:58)
[2019-08-20] MEDS: hydrOXYzine pamoate 25 MG CAPSULE PO SCH ×3 (08:51→20:02)
[2019-08-20] MEDS: Morphine Sulfate ER (12 HR) 15 MG TABLET.ER PO SCH ×2 (08:52→20:01)
[2019-08-20] MEDS: Insulin LISPRO 300 UNITS/3 ML VIAL SQ SCH ×4 (08:53→20:01)
[2019-08-20] MEDS ORDERED: Aspirin 81 MG TAB.CHEW PO SCH (09:00)
[2019-08-20 12:21] LABS: ABG Base Excess 15 mEq/L (-2 to 3); ABG HCO3 43 mEq/L (21-27); ABG Oxygen Saturation 97 % (95-98); ABG PCO2 74 mmHg (35-45); ABG PH 7.37 pH Units (7.32-7.45); ABG PO2 100 mmHg (85-104); ABG TCO2 46 mEq/L (20-26)
[2019-08-20 12:32] LABS: Hematocrit 31.9 % (35.3-44.9); Hemoglobin 8.9 g/dL (11.5-15.4)
[2019-08-20 12:50] LABS: % Iron Saturation 7 % (15-50); Iron 26 mcg/dL (50-170); Transferrin 283 mg/dL (203-362)
[2019-08-20] MEDS: Acetaminophen 325 MG TABLET PO PRN ×2 (12:56→23:07)
[2019-08-20 17:18] LABS: Sodium, Urine 36.1 mEq/L
[2019-08-20] MEDS: Insulin DETEMIR 100 UNIT/ML X5UNITS SQ SCH (20:01)
[2019-08-20] MEDS: Pantoprazole 40 MG VIAL IVP SCH (20:01)
[2019-08-20 22:09] LABS: Hematocrit 33.3 % (35.3-44.9); Hemoglobin 9.2 g/dL (11.5-15.4)
[2019-08-21 01:06] LABS: Hematocrit 29.7 % (35.3-44.9); Hemoglobin 8.2 g/dL (11.5-15.4); Mean Corpuscular HGB Conc 27.6 g/dL (31.6-35.5); Mean Corpuscular Hemoglobin 24.4 pg (28.0-33.3); Mean Corpuscular Volume 88.4 fL (83.0-100.0); Mean Platelet Volume 9.7 fL (9.4-12.4); Platelet Count 216 K/mcL (140-400); Red Blood Count 3.36 M/mcL (3.82-4.97); Red Cell Distribution Width 18.1 % (11.5-14.5); White Blood Count 10.2 K/mcL (4.3-11.1)
[2019-08-21 01:24] LABS: Calcium 7.8 mg/dL (8.6-10.3); Magnesium 1.5 mg/dL (1.6-2.6)
[2019-08-21] MEDS: Pantoprazole 40 MG VIAL IVP SCH ×2 (05:42→16:37)
[2019-08-21] MEDS: Metoprolol XL (24 HR) Succ 25 MG TAB.ER.24H PO SCH ×2 (08:16→20:17)
[2019-08-21] MEDS: Insulin LISPRO 300 UNITS/3 ML VIAL SQ SCH ×4 (08:16→20:18)
[2019-08-21] MEDS: Morphine Sulfate ER (12 HR) 15 MG TABLET.ER PO SCH ×2 (08:16→20:18)
[2019-08-21] MEDS: hydrOXYzine pamoate 25 MG CAPSULE PO SCH ×2 (08:16→15:21)
[2019-08-21 15:02] LABS: Hematocrit 32.7 % (35.3-44.9); Hemoglobin 8.7 g/dL (11.5-15.4)
[2019-08-21] MEDS: Insulin DETEMIR 100 UNIT/ML X5UNITS SQ SCH (20:18)
[2019-08-22 04:42] LABS: Hematocrit 31.6 % (35.3-44.9); Hemoglobin 8.7 g/dL (11.5-15.4); Mean Corpuscular HGB Conc 27.5 g/dL (31.6-35.5); Mean Corpuscular Hemoglobin 24.7 pg (28.0-33.3); Mean Corpuscular Volume 89.8 fL (83.0-100.0); Mean Platelet Volume 9.9 fL (9.4-12.4); Platelet Count 216 K/mcL (140-400); Red Blood Count 3.52 M/mcL (3.82-4.97); Red Cell Distribution Width 18.4 % (11.5-14.5); White Blood Count 9.7 K/mcL (4.3-11.1)
[2019-08-22 04:56] LABS: Calcium 8.1 mg/dL (8.6-10.3)
[2019-08-22] MEDS: *HR* OxyCODONE Immed Rel 5 MG TABLET PO PRN (06:58)
[2019-08-22] MEDS: Pantoprazole 40 MG VIAL IVP SCH ×2 (06:59→17:04)
[2019-08-22] MEDS: Metoprolol XL (24 HR) Succ 25 MG TAB.ER.24H PO SCH ×2 (08:19→20:06)
[2019-08-22] MEDS: Morphine Sulfate ER (12 HR) 15 MG TABLET.ER PO SCH ×2 (08:19→20:06)
[2019-08-22] MEDS: Insulin LISPRO 300 UNITS/3 ML VIAL SQ SCH ×7 (08:22→21:14)
[2019-08-22] MEDS ORDERED: Iron Sucrose Complex 200 MG in 0.9 % Sodium Chloride 100 ML IVPB ONE (11:30)
[2019-08-22] MEDS: Albumin 25% 25gram/100mL 25 GM/100 ML IV.SOLN IVPB SCH ×2 (12:07→17:04)
[2019-08-22 12:29] LABS: Bilirubin,Urine Negative (Negative); Blood,Urine Small (Negative); Clarity,Urine Cloudy (Clear); Color,Urine Yellow (Yellow); Glucose,Urine (UA) 100 mg/dL (Normal); Ketones,Urine Negative (Negative); Leukocyte Esterase,Urine Negative (Negative); Nitrite,Urine Negative (Negative); PH,Urine 6.5 pH Units (5.0-8.0); Protein,Urine >=300 mg/dL (Neg-Trace); Specific Gravity,Urine 1.018 (1.010-1.025); Urobilinogen,Urine Normal (Normal)
[2019-08-22 12:34] LABS: Bacteria,Urine Few per hpf (None-Few); Hyaline Casts,Urine None Seen per lpf (None-Few); Squamous Epithelial Cell,Urine Many per lpf (None-Few); WBC,Urine 0-3 per hpf (0-3)
[2019-08-22 12:50] LABS: Protein/Creatinine Ratio,Urine 5.7 mg/mg (0.00-0.20)
[2019-08-22] MEDS: Furosemide 40 MG/4 ML VIAL IVP SCH ×2 (14:07→20:07)
[2019-08-22] MEDS: Insulin DETEMIR 100 UNIT/ML X5UNITS SQ SCH (21:18)
[2019-08-23 04:31] LABS: Albumin 3.6 g/dL (3.5-5.7); Calcium 8.2 mg/dL (8.6-10.3); Magnesium 1.7 mg/dL (1.6-2.6); Phosphorous 5.8 mg/dL (2.7-4.5); Potassium 4.9 mEq/L (3.5-5.1)
[2019-08-23 04:55] LABS: ABG Base Excess 11 mEq/L (-2 to 3); ABG HCO3 39 mEq/L (21-27); ABG Oxygen Saturation 78 % (95-98); ABG PCO2 81 mmHg (35-45); ABG PH 7.29 pH Units (7.32-7.45); ABG PO2 50 mmHg (85-104); ABG TCO2 42 mEq/L (20-26)
[2019-08-23] MEDS: Pantoprazole 40 MG VIAL IVP SCH ×2 (06:03→17:29)
[2019-08-23] MEDS: Albumin 25% 25gram/100mL 25 GM/100 ML IV.SOLN IVPB SCH ×2 (06:03→17:30)
[2019-08-23] MEDS: Acetaminophen 325 MG TABLET PO PRN (06:59)
[2019-08-23] MEDS ORDERED: Furosemide 40 MG/4 ML VIAL IVP ONE (09:03)
[2019-08-23] MEDS: Metoprolol XL (24 HR) Succ 25 MG TAB.ER.24H PO SCH ×2 (09:26→20:37)
[2019-08-23] MEDS: Morphine Sulfate ER (12 HR) 15 MG TABLET.ER PO SCH ×2 (09:27→20:37)
[2019-08-23] MEDS: Insulin LISPRO 300 UNITS/3 ML VIAL SQ SCH ×7 (09:28→20:51)
[2019-08-23] MEDS ORDERED: Furosemide 20 MG/2 ML VIAL IVP ONE (10:39)
[2019-08-23 15:14] LABS: Estimated Average Glucose 186 mg/dl
[2019-08-23] MEDS: Furosemide 40 MG/4 ML VIAL IVP SCH (17:29)
[2019-08-23] MEDS ORDERED: Furosemide 60 MG in 0.9 % Sodium Chloride 50 ML IV SCH (18:00)
[2019-08-23] MEDS ORDERED: metOLazone 5 MG TABLET PO SCH (18:00)
[2019-08-23] MEDS: Insulin DETEMIR 100 UNIT/ML X5UNITS SQ SCH (20:51)
[2019-08-24] MEDS ORDERED: metOLazone 5 MG TABLET PO SCH (05:00)
[2019-08-24] MEDS: Albumin 25% 25gram/100mL 25 GM/100 ML IV.SOLN IVPB SCH (05:53)
[2019-08-24] MEDS: Pantoprazole 40 MG VIAL IVP SCH ×2 (05:53→18:46)
[2019-08-24] MEDS: Furosemide 40 MG/4 ML VIAL IVP SCH (05:54)
[2019-08-24 05:55] LABS: Basophils % 0.4 %; Eosinophils # 0.3 K/mcL (0.0-0.6); Eosinophils % 3.3 %; Hematocrit 27.2 % (35.3-44.9); Hemoglobin 7.5 g/dL (11.5-15.4); Immature Granulocytes % 0.7 % (0-4); Lymphocytes # 1.4 K/mcL (0.6-4.6); Lymphocytes % 15.4 %; Mean Corpuscular HGB Conc 27.6 g/dL (31.6-35.5); Mean Corpuscular Hemoglobin 24.8 pg (28.0-33.3); Mean Corpuscular Volume 90.1 fL (83.0-100.0); Mean Platelet Volume 10.5 fL (9.4-12.4); Monocytes # 0.7 K/mcL (0.0-1.3); Monocytes % 7.4 %; Neutrophils # 6.5 K/mcL (1.6-8.9); Nucleated Red Blood Cells 0.3 /100 WBC (0); Platelet Count 210 K/mcL (140-400); Red Blood Count 3.02 M/mcL (3.82-4.97); Red Cell Distribution Width 18.5 % (11.5-14.5); Segmented Neutrophils % 72.8 %; White Blood Count 8.9 K/mcL (4.3-11.1)
[2019-08-24] MEDS: Acetaminophen 325 MG TABLET PO PRN (06:08)
[2019-08-24 06:15] LABS: Calcium 8.4 mg/dL (8.6-10.3); Magnesium 1.7 mg/dL (1.6-2.6); Phosphorous 6.1 mg/dL (2.7-4.5); Potassium 4.8 mEq/L (3.5-5.1)
[2019-08-24 06:37] LABS: Hypochromasia Present (Not Present); Platelet Estimate Normal (Normal); Poikilocytosis 1+ (Not Present); Tear Drop Cells 1+ (Not Present)
[2019-08-24] MEDS: Insulin LISPRO 300 UNITS/3 ML VIAL SQ SCH ×7 (08:14→20:33)
[2019-08-24] MEDS: Metoprolol XL (24 HR) Succ 25 MG TAB.ER.24H PO SCH ×2 (08:15→20:26)
[2019-08-24] MEDS: Morphine Sulfate ER (12 HR) 15 MG TABLET.ER PO SCH ×2 (08:15→20:26)
[2019-08-24 08:44] LABS: Hematocrit 28.2 % (35.3-44.9); Hemoglobin 7.7 g/dL (11.5-15.4)
[2019-08-24] MEDS ORDERED: 0.9 % Sodium Chloride 250 ML IVC PRN ×2 (11:11→17:37)
[2019-08-24] MEDS ORDERED: 0.9 % Sodium Chloride 1,000 ML PRIME SCH (11:15)
[2019-08-24 13:49] LABS: Hepatitis B Surface Antibody < 3.10 mIU/mL
[2019-08-24] MEDS ORDERED: *HR* Heparin 5,000 UNIT/ML VIAL ONE (13:58)
[2019-08-24 13:59] LABS: Hepatitis B Surface Antigen Nonreactive (Nonreactive)
[2019-08-24] MEDS ORDERED: Iron Sucrose Complex 200 MG in 0.9 % Sodium Chloride 100 ML IVPB ONE (14:30)
[2019-08-24] MEDS ORDERED: *HR* Heparin 10,000 UNIT/10 ML VIAL IV PRN (17:37)
[2019-08-24] MEDS: Insulin DETEMIR 100 UNIT/ML X5UNITS SQ SCH (20:33)
[2019-08-24] MEDS: *HR* OxyCODONE Immed Rel 5 MG TABLET PO PRN (23:08)
[2019-08-25 04:13] LABS: Basophils % 0.3 %; Eosinophils # 0.3 K/mcL (0.0-0.6); Eosinophils % 2.3 %; Hematocrit 30.5 % (35.3-44.9); Hemoglobin 8.2 g/dL (11.5-15.4); Immature Granulocytes % 1.1 % (0-4); Lymphocytes # 1.2 K/mcL (0.6-4.6); Mean Corpuscular HGB Conc 26.9 g/dL (31.6-35.5); Mean Corpuscular Hemoglobin 24.2 pg (28.0-33.3); Mean Platelet Volume 9.4 fL (9.4-12.4); Monocytes # 0.8 K/mcL (0.0-1.3); Monocytes % 7.5 %; Neutrophils # 8.6 K/mcL (1.6-8.9); Nucleated Red Blood Cells 0.6 /100 WBC (0); Platelet Count 211 K/mcL (140-400); Red Blood Count 3.39 M/mcL (3.82-4.97); Red Cell Distribution Width 18.4 % (11.5-14.5); Segmented Neutrophils % 77.8 %
[2019-08-25 04:14] LABS: Anisocytosis 1+ (Not Present); Hypochromasia Present (Not Present)
[2019-08-25 04:15] LABS: Platelet Estimate Normal (Normal)
[2019-08-25 04:39] LABS: Calcium 8.4 mg/dL (8.6-10.3); Magnesium 1.7 mg/dL (1.6-2.6); Phosphorous 5.2 mg/dL (2.7-4.5); Potassium 4.1 mEq/L (3.5-5.1)
[2019-08-25] MEDS: Pantoprazole 40 MG VIAL IVP SCH (05:53)
[2019-08-25] MEDS ORDERED: 0.9 % Sodium Chloride 250 ML IVC PRN (07:09)
[2019-08-25] MEDS: Metoprolol XL (24 HR) Succ 25 MG TAB.ER.24H PO SCH ×2 (07:48→21:57)
[2019-08-25] MEDS: Morphine Sulfate ER (12 HR) 15 MG TABLET.ER PO SCH ×2 (07:49→21:57)
[2019-08-25] MEDS: Insulin LISPRO 300 UNITS/3 ML VIAL SQ SCH ×7 (07:50→21:46)
[2019-08-25] MEDS ORDERED: *HR* Heparin 10,000 UNIT/10 ML VIAL IV PRN (09:57)
[2019-08-25 18:49] LABS: Kappa Qnt Free Light Chains 67.63 mg/L (3.30-19.40); Lambda Qnt Free Light Chains 36.9 mg/L (5.71-26.30)
[2019-08-25] MEDS: Insulin DETEMIR 100 UNIT/ML X5UNITS SQ SCH (21:57)
[2019-08-26 03:52] LABS: Hemoglobin 8.5 g/dL (11.5-15.4); Immature Granulocytes % 1.3 % (0-4); Mean Platelet Volume 9.8 fL (9.4-12.4); Red Cell Distribution Width 18.6 % (11.5-14.5); Segmented Neutrophils % 77.1 %
[2019-08-26 03:54] LABS: Basophils # 0.1 K/mcL (0.0-0.2); Basophils % 0.4 %; Eosinophils # 0.4 K/mcL (0.0-0.6); Eosinophils % 3.1 %; Hematocrit 30.9 % (35.3-44.9); Lymphocytes # 1.4 K/mcL (0.6-4.6); Lymphocytes % 11.3 %; Mean Corpuscular HGB Conc 27.5 g/dL (31.6-35.5); Mean Corpuscular Volume 90.9 fL (83.0-100.0); Monocytes # 0.8 K/mcL (0.0-1.3); Monocytes % 6.8 %; Neutrophils # 9.3 K/mcL (1.6-8.9); Nucleated Red Blood Cells 0.7 /100 WBC (0); Platelet Count 218 K/mcL (140-400)
[2019-08-26 04:10] LABS: Hypochromasia Present (Not Present); Platelet Estimate Normal (Normal)
[2019-08-26 04:13] LABS: Albumin 3.7 g/dL (3.5-5.7); Calcium 8.3 mg/dL (8.6-10.3); Magnesium 1.6 mg/dL (1.6-2.6)
[2019-08-26] MEDS: Insulin LISPRO 300 UNITS/3 ML VIAL SQ SCH ×7 (07:53→20:21)
[2019-08-26] MEDS ORDERED: Lidocaine -MPF 2% 2 ML VIAL ONE (08:34)
[2019-08-26] MEDS ORDERED: *HR* Succinylcholine 200 MG/10 ML VIAL IVP ONE (08:35)
[2019-08-26] MEDS ORDERED: Propofol 500 MG/50 ML INFUS..BTL ONE (08:35)
[2019-08-26] MEDS ORDERED: Iron Sucrose Complex 200 MG in 0.9 % Sodium Chloride 100 ML IVPB ONE (08:37)
[2019-08-26] MEDS ORDERED: *HR* PHENYLEPHRINE 1,000 MCG/10 ML SYRINGE IVP ONE (08:57)
[2019-08-26] MEDS: Morphine Sulfate ER (12 HR) 15 MG TABLET.ER PO SCH ×2 (10:10→20:23)
[2019-08-26] MEDS: Metoprolol XL (24 HR) Succ 25 MG TAB.ER.24H PO SCH ×2 (11:05→20:23)
[2019-08-26] MEDS ORDERED: 0.9 % Sodium Chloride 250 ML IVC PRN (13:48)
[2019-08-26] MEDS ORDERED: *HR* Heparin 10,000 UNIT/10 ML VIAL IV PRN (13:48)
[2019-08-26] MEDS ORDERED: 0.9 % Sodium Chloride 1,000 ML PRIME SCH (14:00)
[2019-08-26] MEDS: Calcium Acetate 667 MG CAPSULE PO SCH (18:44)
[2019-08-26 19:22] LABS: Alpha 2 Globulin (PEP) 0.86 g/dL (0.48-1.05); Beta Globulin (PEP) 0.84 g/dL (0.48-1.10)
[2019-08-26] MEDS: Insulin DETEMIR 100 UNIT/ML X5UNITS SQ SCH (20:23)
[2019-08-27 03:06] LABS: Hemoglobin 8.5 g/dL (11.5-15.4); Red Cell Distribution Width 18.6 % (11.5-14.5); White Blood Count 10.1 K/mcL (4.3-11.1)
[2019-08-27 03:08] LABS: Hematocrit 30.8 % (35.3-44.9); Mean Corpuscular HGB Conc 27.6 g/dL (31.6-35.5); Mean Corpuscular Hemoglobin 25.1 pg (28.0-33.3); Mean Corpuscular Volume 90.9 fL (83.0-100.0); Mean Platelet Volume 9.9 fL (9.4-12.4); Platelet Count 209 K/mcL (140-400); Red Blood Count 3.39 M/mcL (3.82-4.97)
[2019-08-27 03:23] LABS: Albumin 3.6 g/dL (3.5-5.7); Calcium 8.1 mg/dL (8.6-10.3); Magnesium 1.6 mg/dL (1.6-2.6); Phosphorous 6.6 mg/dL (2.7-4.5); Potassium 4.1 mEq/L (3.5-5.1)
[2019-08-27] MEDS: *HR* OxyCODONE Immed Rel 5 MG TABLET PO PRN (03:56)
[2019-08-27] MEDS: Morphine Sulfate ER (12 HR) 15 MG TABLET.ER PO SCH ×2 (07:59→21:13)
[2019-08-27] MEDS: Calcium Acetate 667 MG CAPSULE PO SCH ×3 (07:59→17:32)
[2019-08-27] MEDS: Insulin LISPRO 300 UNITS/3 ML VIAL SQ SCH ×7 (07:59→21:14)
[2019-08-27] MEDS: Metoprolol XL (24 HR) Succ 25 MG TAB.ER.24H PO SCH ×2 (07:59→21:13)
[2019-08-27] MEDS ORDERED: *HR* Heparin 10,000 UNIT/10 ML VIAL IV PRN ×2 (08:39)
[2019-08-27] MEDS ORDERED: 0.9 % Sodium Chloride 250 ML IVC PRN (08:39)
[2019-08-27] MEDS ORDERED: 0.9 % Sodium Chloride 1,000 ML PRIME SCH (08:45)
[2019-08-27 10:06] LABS: IFE Reflexed NOT DONE
[2019-08-27] MEDS: Insulin DETEMIR 100 UNIT/ML X5UNITS SQ SCH (21:15)
[2019-08-28] MEDS: Metoprolol XL (24 HR) Succ 25 MG TAB.ER.24H PO SCH ×2 (08:42→20:35)
[2019-08-28] MEDS: Calcium Acetate 667 MG CAPSULE PO SCH ×3 (08:42→18:42)
[2019-08-28] MEDS: Morphine Sulfate ER (12 HR) 15 MG TABLET.ER PO SCH ×2 (08:42→20:35)
[2019-08-28] MEDS: Insulin LISPRO 300 UNITS/3 ML VIAL SQ SCH ×7 (08:43→20:33)
[2019-08-28] MEDS: Insulin DETEMIR 100 UNIT/ML X5UNITS SQ SCH (20:34)
[2019-08-29 05:35] LABS: Basophils % 0.3 %; Hemoglobin 8.5 g/dL (11.5-15.4)
[2019-08-29 05:37] LABS: Eosinophils # 0.3 K/mcL (0.0-0.6); Eosinophils % 2.3 %; Hematocrit 30.4 % (35.3-44.9); Immature Granulocytes % 0.8 % (0-4); Lymphocytes # 1.2 K/mcL (0.6-4.6); Lymphocytes % 10.6 %; Mean Corpuscular Volume 89.4 fL (83.0-100.0); Mean Platelet Volume 9.7 fL (9.4-12.4); Monocytes # 0.7 K/mcL (0.0-1.3); Monocytes % 6.1 %; Nucleated Red Blood Cells 0.4 /100 WBC (0); Platelet Count 210 K/mcL (140-400); Red Cell Distribution Width 18.6 % (11.5-14.5); Segmented Neutrophils % 79.9 %; White Blood Count 11.2 K/mcL (4.3-11.1)
[2019-08-29 05:52] LABS: Calcium 8.6 mg/dL (8.6-10.3); Potassium 4.6 mEq/L (3.5-5.1)
[2019-08-29 06:52] LABS: Anisocytosis 1+ (Not Present); Platelet Estimate Normal (Normal); Poikilocytosis 1+ (Not Present)
[2019-08-29 06:53] LABS: Hypochromasia Present (Not Present)
[2019-08-29] MEDS: Calcium Acetate 667 MG CAPSULE PO SCH ×4 (07:41→17:03)
[2019-08-29] MEDS: Insulin LISPRO 300 UNITS/3 ML VIAL SQ SCH ×7 (07:41→20:55)
[2019-08-29] MEDS ORDERED: 0.9 % Sodium Chloride 250 ML IVC PRN (07:43)
[2019-08-29] MEDS ORDERED: *HR* Heparin 10,000 UNIT/10 ML VIAL IV PRN ×2 (07:43)
[2019-08-29] MEDS ORDERED: Heparin 1,000 UNITS/500 mL 500 ML ONE (08:02)
[2019-08-29] MEDS ORDERED: 0.9 % Sodium Chloride 500 ML ONE (08:54)
[2019-08-29] MEDS ORDERED: *HR* Midazolam HCl 2 MG/2 ML VIAL IVP ONE (09:07)
[2019-08-29] MEDS ORDERED: *HR* FentaNYL (PF) 100 MCG/2 ML VIAL IVP ONE (09:07)
[2019-08-29] MEDS ORDERED: CeFAZolin 2,000 MG/50 ML BAG IVPB ONE (09:09)
[2019-08-29] MEDS ORDERED: *HR* Heparin 5,000 UNIT/ML VIAL ONE (09:22)
[2019-08-29 12:07] LABS: Magnesium 1.6 mg/dL (1.6-2.6); Phosphorous 6.1 mg/dL (2.7-4.5)
[2019-08-29] MEDS: Metoprolol XL (24 HR) Succ 25 MG TAB.ER.24H PO SCH ×2 (14:11→21:08)
[2019-08-29] MEDS: Morphine Sulfate ER (12 HR) 15 MG TABLET.ER PO SCH ×2 (14:12→21:08)
[2019-08-29] MEDS: *HR* OxyCODONE Immed Rel 5 MG TABLET PO PRN (17:03)
[2019-08-29] MEDS: Insulin DETEMIR 100 UNIT/ML X5UNITS SQ SCH (21:08)
[2019-08-29 21:57] LABS: Urine Collection Volume RANDOM mL
[2019-08-30] MEDS: *HR* OxyCODONE Immed Rel 5 MG TABLET PO PRN (02:34)
[2019-08-30 06:33] LABS: Calcium 8.6 mg/dL (8.6-10.3); Potassium 4.6 mEq/L (3.5-5.1)
[2019-08-30] MEDS ORDERED: 0.9 % Sodium Chloride 250 ML IVC PRN (07:42)
[2019-08-30] MEDS ORDERED: 0.9 % Sodium Chloride 1,000 ML PRIME SCH (07:45)
[2019-08-30] MEDS: Insulin LISPRO 300 UNITS/3 ML VIAL SQ SCH ×7 (08:04→19:51)
[2019-08-30] MEDS: Morphine Sulfate ER (12 HR) 15 MG TABLET.ER PO SCH ×2 (08:05→19:58)
[2019-08-30] MEDS: Calcium Acetate 667 MG CAPSULE PO SCH ×3 (08:05→17:19)
[2019-08-30] MEDS: Metoprolol XL (24 HR) Succ 25 MG TAB.ER.24H PO SCH ×2 (12:03→19:58)
[2019-08-30] MEDS: Acetaminophen 325 MG TABLET PO PRN (15:12)
[2019-08-30] MEDS: Insulin DETEMIR 100 UNIT/ML X5UNITS SQ SCH (19:58)
[2019-08-31] MEDS: Metoprolol XL (24 HR) Succ 25 MG TAB.ER.24H PO SCH ×2 (08:26→21:18)
[2019-08-31] MEDS: Morphine Sulfate ER (12 HR) 15 MG TABLET.ER PO SCH ×2 (08:26→21:18)
[2019-08-31] MEDS: Insulin LISPRO 300 UNITS/3 ML VIAL SQ SCH ×7 (08:26→21:18)
[2019-08-31] MEDS: Calcium Acetate 667 MG CAPSULE PO SCH ×3 (08:26→16:54)
[2019-08-31] MEDS ORDERED: *HR* Heparin 10,000 UNIT/10 ML VIAL IV PRN ×2 (08:27)
[2019-08-31] MEDS ORDERED: 0.9 % Sodium Chloride 250 ML IVC PRN (08:27)
[2019-08-31 09:24] LABS: Red Cell Distribution Width 18.6 % (11.5-14.5)
[2019-08-31 09:25] LABS: Hematocrit 29.2 % (35.3-44.9); Hemoglobin 8.4 g/dL (11.5-15.4); Mean Corpuscular HGB Conc 28.8 g/dL (31.6-35.5); Mean Corpuscular Hemoglobin 25.5 pg (28.0-33.3); Mean Corpuscular Volume 88.5 fL (83.0-100.0); Mean Platelet Volume 10.2 fL (9.4-12.4); Platelet Count 200 K/mcL (140-400)
[2019-08-31 09:43] LABS: Calcium 8.5 mg/dL (8.6-10.3); Potassium 4.3 mEq/L (3.5-5.1)
[2019-08-31] MEDS ORDERED: Sennosides/Docusate Sodium TABLET PO PRN (16:15)
[2019-08-31] MEDS: Insulin DETEMIR 100 UNIT/ML X5UNITS SQ SCH (21:18)
[2019-09-01] MEDS: Acetaminophen 325 MG TABLET PO PRN ×2 (01:53→13:21)
[2019-09-01 06:46] LABS: Hemoglobin 8.4 g/dL (11.5-15.4)
[2019-09-01 06:48] LABS: Mean Corpuscular Hemoglobin 24.4 pg (28.0-33.3); Mean Corpuscular Volume 87.2 fL (83.0-100.0); Mean Platelet Volume 10.7 fL (9.4-12.4); Platelet Count 227 K/mcL (140-400); Red Blood Count 3.44 M/mcL (3.82-4.97); Red Cell Distribution Width 18.7 % (11.5-14.5); White Blood Count 10.9 K/mcL (4.3-11.1)
[2019-09-01 07:01] LABS: Calcium 8.5 mg/dL (8.6-10.3); Potassium 4.1 mEq/L (3.5-5.1)
[2019-09-01] MEDS ORDERED: 0.9 % Sodium Chloride 250 ML IVC PRN (07:54)
[2019-09-01] MEDS ORDERED: *HR* Heparin 10,000 UNIT/10 ML VIAL IV PRN ×2 (07:54)
[2019-09-01] MEDS: Insulin LISPRO 300 UNITS/3 ML VIAL SQ SCH ×4 (08:25→12:03)
[2019-09-01] MEDS: Metoprolol XL (24 HR) Succ 25 MG TAB.ER.24H PO SCH (08:26)
[2019-09-01] MEDS: Calcium Acetate 667 MG CAPSULE PO SCH ×2 (08:26→12:04)
[2019-09-01 13:11] VITALS: BP 128/41
== END 2019-09-01 16:35 | disposition home or self-care (01) | DRG 194 ==
LOC: 2NNU → SUATTDRO 12:59 → 2ANU 08-22 22:11
PROVIDERS: ADMIT Pharmacist; ATTEND Family Medicine
PROC: IRPERMA (2019-08-29 12:00)

== ENCOUNTER 2021-12-14 09:04 | Inpatient (IN) ==
[2021-12-14] MEDS ORDERED: Naloxone 0.4 MG/ML INJ IVP PRN (11:35)
[2021-12-14] MEDS ORDERED: 0.9 % Sodium Chloride 250 ML IVC PRN (11:36)
[2021-12-14] MEDS ORDERED: *HR* Heparin 10,000 UNIT/10 ML VIAL IV PRN (11:36)
[2021-12-14] MEDS ORDERED: 0.9 % Sodium Chloride 2,000 ML PRIME SCH (11:45)
[2021-12-14] MEDS ORDERED: Dextrose Gel 15 GM/37.5 ML TUBE PO PRN ×2 (13:15)
[2021-12-14] MEDS ORDERED: *HR* Dextrose 50 % in Water (Syg) 50 ML SYRINGE IVP PRN (13:15)
[2021-12-14] MEDS ORDERED: D5% in Water 1,000 ML IVC PRN (13:15)
[2021-12-14] MEDS: Furosemide 40 MG TABLET PO SCH (13:39)
[2021-12-14] MEDS: Calcium Acetate 667 MG CAPSULE PO SCH (16:12)
[2021-12-14] MEDS: Insulin LISPRO 300 UNITS/3 ML VIAL SUBQ SCH ×2 (16:12→20:33)
[2021-12-14] MEDS ORDERED: Calcium Acetate 667 MG CAPSULE PO SCH (17:00)
[2021-12-14] MEDS: Morphine Sulfate ER (12 HR) 15 MG TABLET.ER PO SCH (19:57)
[2021-12-14] MEDS ORDERED: Ondansetron 4 MG/2 ML VIAL IVP ONE (20:06)
[2021-12-14] MEDS: Loratadine 10 MG TABLET PO SCH (20:32)
[2021-12-14] MEDS ORDERED: Melatonin 3 MG TABLET PO PRN (21:00)
[2021-12-14] MEDS: Insulin DETEMIR 100 UNIT/ML X5UNITS SUBQ SCH (23:35)
[2021-12-15 02:17] LABS: Hepatitis B Surface Antibody < 3.10 mIU/mL
[2021-12-15 02:29] LABS: Hepatitis B Surface Antigen Nonreactive (Nonreactive)
[2021-12-15 02:36] LABS: Basophils % 0.4 %; Eosinophils # 0.1 K/mcL (0.0-0.6); Eosinophils % 1.3 %; Hematocrit 40.4 % (35.3-44.9); Hemoglobin 11.8 g/dL (11.5-15.4); Immature Granulocytes % 0.6 % (0-4); Lymphocytes % 10.8 %; Mean Corpuscular HGB Conc 29.2 g/dL (31.6-35.5); Mean Corpuscular Hemoglobin 27.6 pg (28.0-33.3); Mean Corpuscular Volume 94.6 fL (83.0-100.0); Mean Platelet Volume 10.5 fL (9.4-12.4); Monocytes # 0.8 K/mcL (0.0-1.3); Monocytes % 9.4 %; Neutrophils # 6.9 K/mcL (1.6-8.9); Platelet Count 167 K/mcL (140-400); Red Blood Count 4.27 M/mcL (3.82-4.97); Red Cell Distribution Width 15.5 % (11.5-14.5); Segmented Neutrophils % 77.5 %; White Blood Count 8.9 K/mcL (4.3-11.1)
[2021-12-15 02:54] LABS: Albumin 3.5 g/dL (3.5-5.7); Phosphorous 5.2 mg/dL (2.7-4.5); Potassium 5.5 mEq/L (3.5-5.1)
[2021-12-15 03:32] LABS: Estimated Average Glucose 151 mg/dl; Hemoglobin A1C 6.9 %
[2021-12-15] MEDS: Morphine Sulfate ER (12 HR) 15 MG TABLET.ER PO SCH ×2 (06:10→17:25)
[2021-12-15] MEDS: Insulin LISPRO 300 UNITS/3 ML VIAL SUBQ SCH ×4 (08:15→21:45)
[2021-12-15] MEDS: Loratadine 10 MG TABLET PO SCH (08:15)
[2021-12-15] MEDS: Calcium Acetate 667 MG CAPSULE PO SCH ×3 (08:15→17:25)
[2021-12-15] MEDS: *HR* OxyCODONE Immed Rel 5 MG TABLET PO PRN ×2 (10:14→22:47)
[2021-12-15] MEDS ORDERED: SODIUM ZIRCONIUM CYCLOSILICATE 5 GM POWD.PACK PO ONE (11:00)
[2021-12-15 21:22] LABS: Bilirubin,Urine Negative (Negative); Blood,Urine Small (Negative); Clarity,Urine Clear (Clear); Color,Urine Yellow (Yellow); Glucose,Urine (UA) 50 mg/dL (Normal); Ketones,Urine Negative (Negative); Leukocyte Esterase,Urine Large (Negative); Nitrite,Urine Negative (Negative); PH,Urine 6.5 pH Units (5.0-8.0); Protein,Urine >=600 mg/dL (Neg-Trace); Specific Gravity,Urine 1.016 (1.010-1.025); Squamous Epithelial Cell,Urine Few per hpf (None-Few); Urobilinogen,Urine Normal (Normal); WBC,Urine 50-100 per hpf (0-3)
[2021-12-15] MEDS: Insulin DETEMIR 100 UNIT/ML X5UNITS SUBQ SCH (21:48)
[2021-12-15] MEDS: cefTRIAXone 1,000 MG in Water for inj. (sterile) 10 ML IVP SCH (22:40)
[2021-12-16] MEDS ORDERED: Acetaminophen 325 MG TABLET PO ONE (00:54)
[2021-12-16 02:27] LABS: Hematocrit 39.7 % (35.3-44.9); Hemoglobin 11.6 g/dL (11.5-15.4); Mean Corpuscular HGB Conc 29.2 g/dL (31.6-35.5); Mean Corpuscular Volume 95.7 fL (83.0-100.0); Mean Platelet Volume 10.2 fL (9.4-12.4); Platelet Count 165 K/mcL (140-400); Red Blood Count 4.15 M/mcL (3.82-4.97); Red Cell Distribution Width 15.4 % (11.5-14.5)
[2021-12-16 02:39] LABS: Calcium 7.9 mg/dL (8.6-10.3); Potassium 5.7 mEq/L (3.5-5.1)
[2021-12-16] MEDS: Morphine Sulfate ER (12 HR) 15 MG TABLET.ER PO SCH ×2 (05:54→18:39)
[2021-12-16] MEDS ORDERED: 0.9 % Sodium Chloride 250 ML IVC PRN (07:11)
[2021-12-16] MEDS: Insulin LISPRO 300 UNITS/3 ML VIAL SUBQ SCH ×4 (07:49→21:41)
[2021-12-16] MEDS: cefTRIAXone 1,000 MG in Water for inj. (sterile) 10 ML IVP SCH (08:34)
[2021-12-16] MEDS: Loratadine 10 MG TABLET PO SCH (08:37)
[2021-12-16] MEDS: Calcium Acetate 667 MG CAPSULE PO SCH ×3 (08:38→18:39)
[2021-12-16] MEDS: *HR* OxyCODONE Immed Rel 5 MG TABLET PO PRN (11:35)
[2021-12-16] MEDS ORDERED: Ergocalciferol (VIT D2) 50,000 UNIT (1.25MG) CAP PO SCH (13:13)
[2021-12-16] MEDS: Furosemide 40 MG TABLET PO SCH (18:40)
[2021-12-16] MEDS: *HR* Heparin 5,000 UNIT/ML VIAL SQ SCH (18:40)
[2021-12-16] MEDS: Insulin DETEMIR 100 UNIT/ML X5UNITS SUBQ SCH (21:45)
[2021-12-17] MEDS: *HR* Heparin 5,000 UNIT/ML VIAL SQ SCH ×3 (00:28→14:59)
[2021-12-17] MEDS: *HR* OxyCODONE Immed Rel 5 MG TABLET PO PRN (00:31)
[2021-12-17 01:47] LABS: Hematocrit 39.6 % (35.3-44.9); Hemoglobin 11.6 g/dL (11.5-15.4); Mean Corpuscular HGB Conc 29.3 g/dL (31.6-35.5); Mean Corpuscular Hemoglobin 28.1 pg (28.0-33.3); Mean Corpuscular Volume 95.9 fL (83.0-100.0); Mean Platelet Volume 10.2 fL (9.4-12.4); Platelet Count 155 K/mcL (140-400); Red Blood Count 4.13 M/mcL (3.82-4.97); Red Cell Distribution Width 15.4 % (11.5-14.5); White Blood Count 9.1 K/mcL (4.3-11.1)
[2021-12-17 02:12] LABS: Calcium 7.9 mg/dL (8.6-10.3); Potassium 4.8 mEq/L (3.5-5.1)
[2021-12-17] MEDS: Morphine Sulfate ER (12 HR) 15 MG TABLET.ER PO SCH (05:38)
[2021-12-17 06:53] VITALS: PULSE 84; O2SAT 93
[2021-12-17] MEDS ORDERED: 0.9 % Sodium Chloride 250 ML IVC PRN (07:15)
[2021-12-17] MEDS ORDERED: *HR* Heparin 10,000 UNIT/10 ML VIAL IV PRN (07:34)
[2021-12-17] MEDS: Insulin LISPRO 300 UNITS/3 ML VIAL SUBQ SCH ×3 (08:08→16:38)
[2021-12-17] MEDS: Loratadine 10 MG TABLET PO SCH (09:49)
[2021-12-17] MEDS: Calcium Acetate 667 MG CAPSULE PO SCH ×3 (09:50→16:38)
[2021-12-17] MEDS: cefTRIAXone 1,000 MG in Water for inj. (sterile) 10 ML IVP SCH (13:58)
[2021-12-17 14:25] VITALS: BP 112/70; TEMP 97.7
== END 2021-12-17 17:39 | disposition home or self-care (01) | DRG 640 ==
LOC: 2ANU
PROVIDERS: ADMIT Hospitalist; ATTEND Hospitalist

== ENCOUNTER 2022-02-03 09:55 | Inpatient (IN) ==
[2022-02-03] MEDS ORDERED: Ipratropium/Albuterol Neb 3 ML IH ONE (10:29)
[2022-02-03 10:39] LABS: Basophils # 0.1 K/mcL (0.0-0.2); Basophils % 0.4 %; Eosinophils % 0.1 %; Hematocrit 42.9 % (35.3-44.9); Hemoglobin 12.8 g/dL (11.5-15.4); Immature Granulocytes % 1.6 % (0-4); Lymphocytes # 0.4 K/mcL (0.6-4.6); Lymphocytes % 2.2 %; Mean Corpuscular HGB Conc 29.8 g/dL (31.6-35.5); Mean Corpuscular Hemoglobin 26.9 pg (28.0-33.3); Mean Corpuscular Volume 90.3 fL (83.0-100.0); Mean Platelet Volume 11.2 fL (9.4-12.4); Monocytes # 0.6 K/mcL (0.0-1.3); Monocytes % 3.1 %; Neutrophils # 18.5 K/mcL (1.6-8.9); Nucleated Red Blood Cells 0.2 /100 WBC (0); Platelet Count 154 K/mcL (140-400); Red Blood Count 4.75 M/mcL (3.82-4.97); Red Cell Distribution Width 16.2 % (11.5-14.5); Segmented Neutrophils % 92.6 %
[2022-02-03 10:41] LABS: VBG HCO3 24 mEq/L (21-27); VBG PCO2 73 mmHg (41-51); VBG PH 7.13 pH Units (7.32-7.42); VBG PO2 64 mmHg (25-50)
[2022-02-03 10:54] LABS: INR 1.7; Prothrombin Time 18.9 Seconds (9.4-12.1)
[2022-02-03 10:57] LABS: Activated Partial Thrombo Time 29.4 Seconds (26.0-36.0)
[2022-02-03 11:04] LABS: Albumin 3.5 g/dL (3.5-5.7); Bilirubin,Direct 2.2 mg/dL (0.0-0.2); Bilirubin,Total 3.2 mg/dL (0.3-1.0); Calcium 8.9 mg/dL (8.6-10.3); Globulin 3.4 g/dL (2.4-3.5); Total Protein 6.9 g/dL (6.4-8.9); Troponin I 0.12 ng/mL (< 0.04)
[2022-02-03] MEDS ORDERED: Aspirin 325 MG TABLET PO ONE (11:04)
[2022-02-03] MEDS ORDERED: Iopamidol - 370 500 ML MLS IVP ONE (11:25)
[2022-02-03 11:47] LABS: Influenza A PCR Negative (Negative); Influenza B PCR Negative (Negative); Resp. Syncytial Virus PCR Negative (Negative)
[2022-02-03 12:07] LABS: SARS-CoV-2 by PCR (In House) Negative (Negative)
[2022-02-03 14:16] LABS: Hepatitis B Surface Antibody < 3.10 mIU/mL
[2022-02-03 14:27] LABS: Hepatitis B Surface Antigen Nonreactive (Nonreactive)
[2022-02-03] MEDS ORDERED: Azithromycin 500 MG in 0.9 % Sodium Chloride 250 ML IVPB ONE (15:40)
[2022-02-03] MEDS ORDERED: cefTRIAXone 2,000 MG in 0.9 % Sodium Chloride Mini Bag 100 ML IVPB ONE (15:40)
[2022-02-03] MEDS ORDERED: Melatonin 3 MG TABLET PO PRN (16:00)
[2022-02-03] MEDS ORDERED: Acetaminophen 325 MG TABLET PO PRN (16:00)
[2022-02-03] MEDS ORDERED: Naloxone 0.4 MG/ML INJ IVP PRN (16:00)
[2022-02-03] MEDS ORDERED: Ondansetron 4 MG/2 ML VIAL IVP PRN (16:00)
[2022-02-03] MEDS ORDERED: *HR* Heparin 5,000 UNIT/ML VIAL SQ SCH (18:00)
[2022-02-03] MEDS ORDERED: 0.9 % Sodium Chloride 250 ML IVC PRN (18:05)
[2022-02-03] MEDS ORDERED: *HR* Heparin 10,000 UNIT/10 ML VIAL IV PRN (18:05)
[2022-02-03] MEDS ORDERED: 0.9 % Sodium Chloride 2,000 ML PRIME SCH (18:15)
[2022-02-04] MEDS ORDERED: Lidocaine 4% CREAM (LMX) 5 GM TP PRN (02:46)
[2022-02-04] MEDS ORDERED: *HR* HYDROcodone/Acet 5/325 mg TABLET PO ONE (02:48)
[2022-02-04 06:15] LABS: Hematocrit 41.1 % (35.3-44.9); Hemoglobin 12.5 g/dL (11.5-15.4); Mean Corpuscular HGB Conc 30.4 g/dL (31.6-35.5); Mean Corpuscular Hemoglobin 26.9 pg (28.0-33.3); Mean Corpuscular Volume 88.4 fL (83.0-100.0); Mean Platelet Volume 12.5 fL (9.4-12.4); Platelet Count 145 K/mcL (140-400); Red Blood Count 4.65 M/mcL (3.82-4.97); Red Cell Distribution Width 16.2 % (11.5-14.5); White Blood Count 24.3 K/mcL (4.3-11.1)
[2022-02-04 06:24] LABS: INR 1.7
[2022-02-04 06:31] LABS: VBG HCO3 24 mEq/L (21-27); VBG PCO2 54 mmHg (41-51); VBG PH 7.26 pH Units (7.32-7.42); VBG PO2 134 mmHg (25-50)
[2022-02-04] MEDS: *HR* Heparin 5,000 UNIT/ML VIAL SQ SCH ×2 (06:35→17:59)
[2022-02-04 06:37] LABS: Troponin I 0.06 ng/mL (< 0.04)
[2022-02-04 07:30] LABS: Albumin 3.4 g/dL (3.5-5.7); Albumin/Globulin Ratio 1.1 (1.1-2.2); Bilirubin,Direct 2.2 mg/dL (0.0-0.2); Bilirubin,Indirect 0.9 mg/dL (0.0-1.0); Bilirubin,Total 3.1 mg/dL (0.3-1.0); Calcium 8.9 mg/dL (8.6-10.3); Magnesium 1.8 mg/dL (1.6-2.6); Phosphorous 5.5 mg/dL (2.7-4.5); Potassium 4.7 mEq/L (3.5-5.1); Total Protein 6.4 g/dL (6.4-8.9)
[2022-02-04] MEDS ORDERED: cefTRIAXone 1,000 MG in Water for inj. (sterile) 10 ML IVP SCH (09:00)
[2022-02-04] MEDS ORDERED: *HR* Heparin 10,000 UNIT/10 ML VIAL IV PRN (10:50)
[2022-02-04] MEDS ORDERED: 0.9 % Sodium Chloride 250 ML IVC PRN (10:50)
[2022-02-04] MEDS: Metoprolol XL (24 HR) Succ 25 MG TAB.ER.24H PO SCH ×2 (14:17→22:18)
[2022-02-04] MEDS ORDERED: Calcium Acetate 667 MG CAPSULE PO SCH (17:00)
[2022-02-04] MEDS ORDERED: Morphine Sulfate ER (12 HR) 15 MG TABLET.ER PO SCH (18:00)
[2022-02-04] MEDS ORDERED: *HR* Metoprolol 5 MG/5 ML VIAL IVP ONE ×2 (18:05→23:37)
[2022-02-04] MEDS ORDERED: 0.9 % Sodium Chloride 500 ML IVC ONE ×2 (20:00→20:01)
[2022-02-04] MEDS ORDERED: *HR* FentaNYL (PF) 100 MCG/2 ML VIAL ONE (21:05)
[2022-02-04] MEDS ORDERED: *HR* Midazolam HCl 2 MG/2 ML VIAL ONE (21:05)
[2022-02-04] MEDS ORDERED: Ketamine HCL *QUVA* 50mg (1mL) SYRINGE ONE (21:05)
[2022-02-04] MEDS ORDERED: *HR* Propofol 200 MG/20 ML VIAL IVP ONE (21:08)
[2022-02-04] MEDS ORDERED: *HR* Succinylcholine 200 MG/10 ML VIAL IVP ONE (21:09)
[2022-02-04] MEDS ORDERED: NOREPINEPHRINE IVC SCH (22:30)
[2022-02-04] MEDS ORDERED: Vancomycin 2,000 MG/520 ML IV.SOLN IVPB ONE (23:00)
[2022-02-04] MEDS ORDERED: Clindamycin 900 MG/50 ML 900 MG/50 ML IV.SOLN IVPB SCH (23:00)
[2022-02-04] MEDS ORDERED: Piperacillin/Tazobactam 3.375 GM in 0.9 % Sodium Chloride Mini Bag 100 ML IVPB SCH (23:00)
[2022-02-04 23:07] LABS: ABG Base Excess -4 mEq/L (-2 to 3); ABG HCO3 25 mEq/L (21-27); ABG Oxygen Saturation 97 % (95-98); ABG PCO2 62 mmHg (35-45); ABG PH 7.22 pH Units (7.32-7.45); ABG PO2 109 mmHg (85-104); ABG TCO2 27 mEq/L (20-26); Blood Gas Modality NIV
[2022-02-05] MEDS: Albumin Human 5% 12.5 GM/250 ML IV.SOLN IVC SCH ×2 (01:11→04:55)
[2022-02-05] MEDS ORDERED: Ketamine HCL *QUVA* 50mg (1mL) SYRINGE ONE (02:03)
[2022-02-05] MEDS ORDERED: *HR* Etomidate 40 MG/20 ML VIAL IVP ONE (02:09)
[2022-02-05] MEDS ORDERED: Lidocaine -MPF 2% 5 ML VIAL ONE (02:09)
[2022-02-05] MEDS ORDERED: *HR* Succinylcholine 200 MG/10 ML VIAL IVP ONE (02:09)
[2022-02-05] MEDS ORDERED: Bupivacaine-MPF 0.25% 10 ML VIAL ONE (02:10)
[2022-02-05] MEDS ORDERED: *HR* Midazolam HCl 2 MG/2 ML VIAL ONE (02:11)
[2022-02-05] MEDS ORDERED: *HR* Vasopressin 20 UNIT/ML VIAL ONE (02:12)
[2022-02-05] MEDS ORDERED: Heparin 1,000 UNITS/500 mL 500 ML ONE (02:49)
[2022-02-05 03:32] LABS: VBG Ionized Calcium 1.12 mmol/L (1.15-1.35)
[2022-02-05] MEDS ORDERED: *HR* Rocuronium Bromide 50 MG/5 ML VIAL ONE (03:46)
[2022-02-05 03:57] LABS: Hemoglobin 11.7 g/dL (11.5-15.4); Red Blood Count 4.33 M/mcL (3.82-4.97); Red Cell Distribution Width 16.3 % (11.5-14.5)
[2022-02-05 03:59] LABS: Hematocrit 38.3 % (35.3-44.9); Immature Platelets 9.9 % (1.1-6.1); Mean Corpuscular HGB Conc 30.5 g/dL (31.6-35.5); Mean Corpuscular Volume 88.5 fL (83.0-100.0); Mean Platelet Volume 11.4 fL (9.4-12.4); White Blood Count 22.5 K/mcL (4.3-11.1)
[2022-02-05] MEDS ORDERED: *HR* Midazolam HCl 5 MG/5 ML VIAL IVP ONE (04:12)
[2022-02-05 04:13] LABS: Calcium 8.8 mg/dL (8.6-10.3); Potassium 4.8 mEq/L (3.5-5.1)
[2022-02-05] MEDS ORDERED: NOREPINEPHRINE IVC SCH ×2 (04:55→05:15)
[2022-02-05] MEDS ORDERED: Ondansetron 4 MG/2 ML VIAL IVP PRN (04:55)
[2022-02-05] MEDS ORDERED: Albumin Human 5% 12.5 GM/250 ML IV.SOLN IVC SCH (04:55)
[2022-02-05] MEDS ORDERED: Lidocaine 4% CREAM (LMX) 5 GM TP PRN (04:55)
[2022-02-05] MEDS ORDERED: Melatonin 3 MG TABLET PO PRN (04:55)
[2022-02-05] MEDS ORDERED: 0.9 % Sodium Chloride 2,000 ML PRIME SCH (04:55)
[2022-02-05] MEDS ORDERED: Naloxone 0.4 MG/ML INJ IVP PRN (04:55)
[2022-02-05] MEDS ORDERED: Acetaminophen 325 MG TABLET PO PRN (04:55)
[2022-02-05] MEDS ORDERED: 0.9 % Sodium Chloride 250 ML IVC PRN (04:55)
[2022-02-05] MEDS ORDERED: Artificial Tears SOLN 15 ML BOTTLE BOTH EYES PRN (04:57)
[2022-02-05] MEDS ORDERED: FentaNYL (PF) 1,000 MCG/100 ML IV.SOLN IVC SCH (05:00)
[2022-02-05] MEDS: Phenylephrine 20 MG in 0.9 % Sodium Chloride 250 ML IVC SCH ×2 (05:23→08:44)
[2022-02-05] MEDS ORDERED: 0.9 % Sodium Chloride 1,000 ML ONE (05:38)
[2022-02-05] MEDS ORDERED: Ringers Solution, Lactated 500 ML IVC ONE (05:54)
[2022-02-05] MEDS ORDERED: Morphine Sulfate ER (12 HR) 15 MG TABLET.ER PO SCH (06:00)
[2022-02-05] MEDS: *HR* Heparin 5,000 UNIT/ML VIAL SQ SCH ×2 (06:17→07:58)
[2022-02-05] MEDS ORDERED: Iopamidol - 370 500 ML MLS IVP ONE (06:28)
[2022-02-05] MEDS ORDERED: Clindamycin 900 MG/50 ML 900 MG/50 ML IV.SOLN IVPB SCH (07:00)
[2022-02-05 07:41] VITALS: TEMP 99.3
[2022-02-05] MEDS: Artificial Tears SOLN 15 ML BOTTLE BOTH EYES SCH ×2 (07:59→11:28)
[2022-02-05] MEDS ORDERED: Calcium Acetate 667 MG CAPSULE PO SCH (08:00)
[2022-02-05] MEDS ORDERED: Amiodarone Premix 150 MG/100 ML BAG IVPB ONE (08:10)
[2022-02-05] MEDS ORDERED: Amiodarone Premix 360 MG/200 ML BAG IVC ONE (08:10)
[2022-02-05] MEDS: SODIUM ZIRCONIUM CYCLOSILICATE 5 GM POWD.PACK PO SCH ×2 (08:13→11:25)
[2022-02-05] MEDS: Metoprolol XL (24 HR) Succ 25 MG TAB.ER.24H PO SCH ×2 (08:13→10:32)
[2022-02-05] MEDS ORDERED: SODIUM ZIRCONIUM CYCLOSILICATE 5 GM POWD.PACK PO SCH (09:00)
[2022-02-05] MEDS ORDERED: *HR* Heparin 5,000 UNIT/ML VIAL IVP PRN (09:00)
[2022-02-05] MEDS ORDERED: Pantoprazole 40 MG VIAL IVP SCH (09:00)
[2022-02-05] MEDS ORDERED: *HR* Alteplase (Cathflo) 2 MG VIAL IVP PRN (09:00)
[2022-02-05] MEDS ORDERED: PrismaSATE BGK 4/2.5 5,000 ML CRRT SCH ×2 (09:00)
[2022-02-05] MEDS ORDERED: Chlorhexidine Rinse 15 ML MOUTHWASH MM SCH (09:00)
[2022-02-05] MEDS ORDERED: cefTRIAXone 1,000 MG in Water for inj. (sterile) 10 ML IVP SCH (09:00)
[2022-02-05] MEDS ORDERED: 0.9 % Sodium Chloride 1,000 ML PRIME ONE ×2 (09:00)
[2022-02-05] MEDS ORDERED: Norepinephrine 4 MG/254 ML IV.SOLN IVC SCH (09:15)
[2022-02-05] MEDS ORDERED: Sodium Bicarbonate 150 MEQ in Water for inj. (sterile) 1,000 ML IVC SCH (09:55)
[2022-02-05 09:56] LABS: ABG Base Excess -11 mEq/L (-2 to 3); ABG HCO3 17 mEq/L (21-27); ABG Oxygen Saturation 93 % (95-98); ABG PCO2 46 mmHg (35-45); ABG PH 7.18 pH Units (7.32-7.45); ABG PO2 86 mmHg (85-104); ABG TCO2 18 mEq/L (20-26); Blood Gas Modality ASSIST CONTROL; Blood Gas VT 400 cc
[2022-02-05] MEDS ORDERED: Hydrocortisone Sodium Succ 100 MG/2 ML VIAL IVP SCH (10:00)
[2022-02-05] MEDS ORDERED: Phenylephrine 100 MG in 0.9 % Sodium Chloride 250 ML IVC SCH (10:00)
[2022-02-05] MEDS ORDERED: Piperacillin/Tazobactam 3.375 GM in 0.9 % Sodium Chloride Mini Bag 100 ML IVPB SCH (11:00)
[2022-02-05] MEDS: 0.9 % Sodium Chloride 1,000 ML PRIME SCH (11:38)
[2022-02-05] MEDS ORDERED: *HR* Dextrose 50 % in Water (Syg) 50 ML SYRINGE ONE ×2 (11:47→11:51)
[2022-02-05] MEDS ORDERED: Dextrose Gel 15 GM/37.5 ML TUBE PO PRN ×2 (11:48)
[2022-02-05] MEDS ORDERED: *HR* Dextrose 50 % in Water (Syg) 50 ML SYRINGE IVP PRN (11:48)
[2022-02-05] MEDS ORDERED: D5% in Water 1,000 ML IVC PRN (11:48)
[2022-02-05 11:51] LABS: VBG Ionized Calcium 1.06 mmol/L (1.15-1.35)
[2022-02-05 11:52] LABS: Hematocrit 40.4 % (35.3-44.9); Hemoglobin 12.3 g/dL (11.5-15.4); Immature Platelets 9.3 % (1.1-6.1); Mean Corpuscular HGB Conc 30.4 g/dL (31.6-35.5); Mean Corpuscular Hemoglobin 27.2 pg (28.0-33.3); Mean Corpuscular Volume 89.2 fL (83.0-100.0); Mean Platelet Volume 12.3 fL (9.4-12.4); Nucleated Red Blood Cells 3.1 /100 WBC (0); Platelet Count 125 K/mcL (140-400); Red Blood Count 4.53 M/mcL (3.82-4.97); Red Cell Distribution Width 16.7 % (11.5-14.5); White Blood Count 24.3 K/mcL (4.3-11.1)
[2022-02-05 11:57] LABS: INR 2.2; Prothrombin Time 24.3 Seconds (9.4-12.1)
[2022-02-05 12:00] LABS: Activated Partial Thrombo Time 36.9 Seconds (26.0-36.0)
[2022-02-05] MEDS ORDERED: Insulin LISPRO 300 UNITS/3 ML VIAL SUBQ SCH (12:00)
[2022-02-05 12:09] LABS: Albumin 3.3 g/dL (3.5-5.7); Albumin/Globulin Ratio 1.2 (1.1-2.2); Bilirubin,Direct 2.7 mg/dL (0.0-0.2); Bilirubin,Indirect 1.1 mg/dL (0.0-1.0); Bilirubin,Total 3.8 mg/dL (0.3-1.0); Calcium 8.5 mg/dL (8.6-10.3); Globulin 2.7 g/dL (2.4-3.5); Phosphorous 7.4 mg/dL (2.7-4.5); Potassium 5.4 mEq/L (3.5-5.1)
[2022-02-05 12:29] LABS: ABG Base Excess -10 mEq/L (-2 to 3); ABG HCO3 20 mEq/L (21-27); ABG Oxygen Saturation 85 % (95-98); ABG PCO2 60 mmHg (35-45); ABG PH 7.13 pH Units (7.32-7.45); ABG PO2 67 mmHg (85-104); ABG TCO2 22 mEq/L (20-26); Blood Gas Modality ASSIST CONTROL; Blood Gas VT 400 cc
[2022-02-05] MEDS ORDERED: *HR* Rocuronium Bromide 50 MG/5 ML VIAL IVP ONE (12:29)
[2022-02-05 12:32] LABS: Lymphocytes # 1.7 K/mcL (0.6-4.6); Monocytes # 0.5 K/mcL (0.0-1.3); Neutrophils # 19.2 K/mcL (1.6-8.9); Toxic Granulation Present (Not Present)
[2022-02-05 12:33] LABS: Anisocytosis 1+ (Not Present); Hypochromasia Present (Not Present); Platelet Estimate Decreased (Normal)
[2022-02-05 12:36] LABS: Acanthocytes 1+ (Not Present); Poikilocytosis 1+ (Not Present); Schistocytes 1+ (Not Present)
[2022-02-05] MEDS ORDERED: D10% in Water 500 ML IVC SCH (12:45)
[2022-02-05] MEDS ORDERED: Calcium Gluconate 1gm/50mL 1 GM/50 ML BAG IVPB SCH (13:00)
[2022-02-05] MEDS ORDERED: *HR* LORazepam 2 MG/ML VIAL IVP ONE (13:22)
[2022-02-05] MEDS ORDERED: Morphine Sulfate 2 MG/ML SYRINGE IVP ONE (13:23)
[2022-02-05] MEDS ORDERED: Amiodarone Premix 360 MG/200 ML BAG IVC SCH (14:10)
[2022-02-05] MEDS ORDERED: *HR* EPINEPHrine 1 MG/10 ML SYRINGE IVP ONE (16:25)
[2022-02-05] MEDS ORDERED: *HR* Dextrose 50 % in Water (Syg) 50 ML SYRINGE IVP ONE (16:25)
[2022-02-05 16:53] VITALS: BP 118/60; PULSE 95; O2SAT 82
== END 2022-02-05 16:26 | disposition expired | DRG 853 ==
LOC: 2NNU 09:55 → EMEROOARM 09:55 → 2NNU 18:45 → 2ANU 02-04 11:59 → SUATTDRO 02-04 13:31 → ICNU 02-05 00:04
PROVIDERS: ADMIT Internal Medicine; ATTEND Internal Medicine